=== PATIENT | male | born 1985 | race African-American/Black ===

== ENCOUNTER 2017-08-30 06:06 | Emergency (ER) | payer OTHER ==
[~2017-08-30] VITALS: Ht 188 cm; Wt 99.8 kg
[2017-08-30] VITALS (18 sets, daily range): BP systolic 102–137; BP diastolic 72–89
[~2017-08-30 06:06] MED LIST: CYCLOBENZAPRINE10 MG ORAL; IBUPROFEN600 MG ORAL; NKM
[2017-08-30] MEDS ORDERED: levETIRAcetam 1,000mg/NS100ml 100 ML IVPB ONE (06:15)
[2017-08-30] MEDS ORDERED: LORazepam Inj 2mg/ml 1ml ONE (06:15)
[2017-08-30] MEDS ORDERED: LORazepam Inj 2mg/ml 1ml IM ONE (06:15)
--- NOTE | 2017-08-30 06:23 | Emergency Room Report ---
History of Present Illness General Chief Complaint: Seizure Source: Family Member, EMS Present Illness HPI Is a 32-year-old male with a history of seizure. According to his sisters, for the last year he will get shaking at night and diaphoretic. Was never diagnosed with a seizure. A month ago he had a tonic clonic seizure activity was seen at an ER in [facility]. He was admitted at [facility] after 2 days. Tonight he had a tonic-clonic seizure activity in his sleep. It stopped by time EMS got there. Here he is postictal and combative. He also had a brief tonic clonic seizure activity lasting about 30 seconds. Family said that he has a history of alcohol and drug abuse. According to his sister, he would occasionally binge on alcohol. Last drink was yesterday. Allergies: Coded Allergies: No Known Allergies (Unverified , 08/05/14) Patient History Past Medical History: see triage record, old chart reviewed Past Surgical History: other Pertinent Family History: none Social History: Reports: smoking, alcohol use, drug use Immunizations: other Reviewed Nursing Documentation: PMH: Agreed; PSxH: Agreed Nursing Documentation-PMH Past Medical History: No History, Except For Hx Seizures: Yes Review of Systems Eye: Denies: eye pain, blurred vision ENT: Denies: ear pain, nose congestion, throat swelling Respiratory: Denies: cough, shortness of breath Cardiovascular: Denies: chest pain, palpitations Gastrointestinal: Denies: abdominal pain, diarrhea, nausea, vomiting Musculoskeletal: Denies: back pain, joint pain Skin: Denies: rash Neurological: Denies: headache, numbness Endocrine: Denies: increased thirst, increased urine Hematologic/Lymphatic: Denies: easy bruising All Other Systems: negative except mentioned in HPI Physical Exam Vital Signs Date Time Temp Pulse Resp B/P (MAP) Pulse Ox O2 Delivery O2 Flow Rate FiO2 08/30/17 06:04 101 24 144/74 99 Room Air vitals unremarkable Sp02 EP Interpretation: reviewed, normal General Appearance: well appearing, other - combative Head: normocephalic, atraumatic Eyes: bilateral eye PERRL, bilateral eye EOMI ENT: normal pharynx Neck: full range of motion, supple, no meningismus Respiratory: chest non-tender, lungs clear, normal breath sounds Cardiovascular #1: regular rate, rhythm, no murmur Gastrointestinal: normal bowel sounds, non tender, no mass, no organomegaly, no bruit, non-distended Musculoskeletal: back normal, normal range of motion Neurologic: grossly normal Psychiatric: other - combative Skin: diaphoresis Medical Decision Making Diagnostic Impression: Primary Impression: Epileptic seizure, generalized ER Course Patient presents with a tonic-clonic seizure activity. He probably does have underlying seizure disorder that has not been treated. I gave him Ativan here and started on Keppra. Labs and EKG ordered. He was seen last month and most likely had CT scan done. I see no trauma to warrant another CT scan. I will sign this patient out to Dr. Dean for final disposition. Last Vital Signs Date Time Temp Pulse Resp B/P (MAP) Pulse Ox O2 Delivery O2 Flow Rate FiO2 08/30/17 06:10 101 24 Room Air 08/30/17 06:04 144/74 99 Status: improved DIEUDONNE QUEEN M.D. August 30, 2017 06:22
[2017-08-30 06:32] LABS: APPEARANCE,URINE CLEAR; BILIRUBIN, URINE NEGATIVE (NEGATIVE); COLOR,URINE PALE YELLOW; GLUCOSE, URINE (UA) NEGATIVE (NEGATIVE); KETONES,URINE NEGATIVE (NEGATIVE); LEUKOCYTE ESTERASE ,URINE NEGATIVE (NEGATIVE); NITRITE,URINE NEGATIVE (NEGATIVE); PH,URINE 6 (4.5-8.0); PROTEIN,URINE 2+ (NEGATIVE); UROBILINOGEN,URINE NORMAL MG/DL (0.0-1.0)
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
[2017-08-30] MEDS ORDERED: Midazolam 2mg/2ml Inj ONE (06:34)
[2017-08-30 06:36] LABS: HEMATOCRIT 50.6 % (42.0-52.0); MEAN CORPUSCULAR VOLUME 88 FL (80-99); PLATELET COUNT 375 K/UL (150-450); RED BLOOD COUNT 5.77 M/UL (4.70-6.10); RED CELL DISTRIBUTION WIDTH 13.2 % (11.6-14.8); WHITE BLOOD COUNT 20.8 K/UL (4.8-10.8)
[2017-08-30 06:44] LABS: ANION GAP 29 mmol/L (5-15); BLOOD UREA NITROGEN 10 mg/dL (7-18); CALCIUM 10.6 MG/DL (8.5-10.1); CARBON DIOXIDE 12 MMOL/L (21-32); CHLORIDE 110 MMOL/L (98-107); CREATININE 1.2 MG/DL (0.55-1.30); POTASSIUM 4.4 MMOL/L (3.5-5.1); SODIUM 150 MMOL/L (136-145)
[2017-08-30] MEDS ORDERED: Midazolam 2mg/2ml Inj IM ONE (06:45)
[2017-08-30 06:48] LABS: ALANINE AMINOTRANSFERASE 29 U/L (12-78); ALBUMIN 4.2 G/DL (3.4-5.0); ALBUMIN/GLOBULIN RATIO 0.9 (1.0-2.7); ALKALINE PHOSPHATASE 158 U/L (46-116); ASPARTATE AMINO TRANSFERASE 15 U/L (15-37); BILIRUBIN,TOTAL 0.2 MG/DL (0.2-1.0)
[2017-08-30] MEDS ORDERED: Midazolam 2mg/2ml Inj IVP ONE (07:00)
[2017-08-30] MEDS ORDERED: levETIRAcetam 500mg/NS100ml 100 ML IVPB ONE (07:15)
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
[2017-08-30] MEDS ORDERED: KEPPRA500 MG ORAL (12:07)
--- NOTE | 2017-08-31 15:19 | Cardiology Report ---
APPROVED REPORT EKG Measurement Heart [id number] Sinus tachycardia Nonspecific T wave abnormality Abnormal ECG
== END 2017-08-30 12:20 | disposition home or self-care (01) ==
LOC: EDBD 06:06 → EMR 06:31
DX: Z91.14 Patient's other noncompliance with medication regimen (principal)
CPT/HCPCS: 36415; 71045; 80053; 80307; 80329; 81003; 82962; 85007; 85025; 93005; 96372; 96374; 96375; 99283; J1953; J2250

== ENCOUNTER 2017-09-18 08:08 | Emergency (ER) | payer OTHER ==
[~2017-09-18] VITALS: Ht 177.8 cm; Wt 90.7 kg
[2017-09-18] VITALS (7 sets, daily range): BP systolic 116–127; BP diastolic 66–90
--- NOTE | 2017-09-18 08:02 | Emergency Room Report ---
History of Present Illness General Chief Complaint: Seizure Source: Patient, EMS Present Illness HPI Patient is a approximately 32-year-old male brought in by EMS after reported unwitnessed seizure. The patient was noted to have prior history of seizure disorder and takes unknown medications. The patient had the been noted be markedly agitated and was given 5 mg of IM Versed 2. The patient was noted to have continued agitation and was brought to the hospital for further evaluation and treatment. History is markedly limited by patient's confusion and altered mental status. Allergies: Coded Allergies: No Known Allergies (Unverified , 08/05/14) Patient History Past Medical History: see triage record Reviewed Nursing Documentation: PMH: Agreed; PSxH: Agreed Nursing Documentation-PMH Hx Seizures: Yes Review of Systems All Other Systems: limited - by mental status Physical Exam Vital Signs Date Time Temp Pulse Resp B/P (MAP) Pulse Ox O2 Delivery O2 Flow Rate FiO2 09/18/17 07:57 Room Air Sp02 EP Interpretation: reviewed, normal General Appearance: normal inspection, well appearing, no apparent distress, alert Head: atraumatic ENT: normal ENT inspection, hearing grossly normal, normal voice Neck: normal inspection, full range of motion, supple, no bony tend Respiratory: normal inspection, lungs clear, normal breath sounds, no respiratory distress, no retraction, no wheezing Cardiovascular #1: regular rate, rhythm, no edema Gastrointestinal: normal inspection, normal bowel sounds, non tender, soft, no guarding, no hernia Genitourinary: no CVA tenderness Musculoskeletal: normal inspection, back normal, normal range of motion Neurologic: normal inspection, alert, responsive, speech normal Psychiatric: normal inspection, mood/affect normal, other - psychomotor agitation Skin: normal inspection, normal color, no rash Medical Decision Making Restraint Attestation I, Mitch Alarcon MD, have personally evaluated this patient. Laboratory tests have been reviewed and addressed accordingly. The patient is deemed to present a danger to themselves and/or others. This is based on the exam, history ( provided by patient, EMS/[employer] and/or family) and observed or reported behavior. Attempts for non-invasive measures have been considered and/or attempted, however, have been futile. It is in the best interest of the nursing staff, the patient, and others involved in this patient's care that behavioral restraints be applied. Patient evaluation reveals the following: Market agitation and thrashing with associated confusion Diagnostic Impression: Primary Impression: Epileptic seizure, generalized ER Course Patient presented for seizure. Differential diagnosis included medication noncompliance, substance abuse, alcohol withdrawal, cysticercosis, electrolyte abnormality, mass lesion, or cranial hemorrhage.Patient was given Haldol with improvement in his agitation. The patient was briefly placed in restraints.The patient subsequently released from restraints after agitation improved. The patient was given IV Keppra. CT of head was ordered due to the head trauma from fall. The patient was noted to have improvement in his mental status subsequently. The CT the head read by radiology showed no evidence of acute hemorrhage. The patient is advised to follow-up for outpatient MRI and EEG. The patient is advised to follow up with primary care doctor in 1-2 days. Patient is advised to return if any worsening condition or if any changes in status that are concerning. This report is dictated with [employer] call taker software which may occasionally lead to discrepancies related to use of this software. Labs Test 09/18/17 08:15 09/18/17 08:20 White Blood Count 9.6 K/UL (4.8-10.8) Red Blood Count 5.16 M/UL (4.70-6.10) Hemoglobin 13.7 G/DL (14.2-18.0) Hematocrit 43.2 % (42.0-52.0) Mean Corpuscular Volume 84 FL (80-99) Mean Corpuscular Hemoglobin 26.6 PG (27.0-31.0) Mean Corpuscular Hemoglobin Concent 31.7 G/DL (32.0-36.0) Red Cell Distribution Width 13.5 % (11.6-14.8) Platelet Count 265 K/UL (150-450) Mean Platelet Volume 8.2 FL (6.5-10.1) Neutrophils (%) (Auto) 53.3 % (45.0-75.0) Lymphocytes (%) (Auto) 35.7 % (20.0-45.0) Monocytes (%) (Auto) 9.3 % (1.0-10.0) Eosinophils (%) (Auto) 0.7 % (0.0-3.0) Basophils (%) (Auto) 1.0 % (0.0-2.0) Sodium Level 141 MMOL/L (136-145) Potassium Level 4.2 MMOL/L (3.5-5.1) Chloride Level 107 MMOL/L (98-107) Carbon Dioxide Level 21 MMOL/L (21-32) Anion Gap 13 mmol/L (5-15) Blood Urea Nitrogen 10 mg/dL (7-18) Creatinine 1.1 MG/DL (0.55-1.30) Estimat Glomerular Filtration Rate > 60 mL/min (>60) Glucose Level 117 MG/DL (74-106) Calcium Level 8.6 MG/DL (8.5-10.1) Total Bilirubin 0.3 MG/DL (0.2-1.0) Aspartate Amino Transf (AST/SGOT) 31 U/L (15-37) Alanine Aminotransferase (ALT/SGPT) 40 U/L (12-78) Alkaline Phosphatase 130 U/L (46-116) Total Creatine Kinase 424 U/L (26-308) Total Protein 7.6 G/DL (6.4-8.2) Albumin 3.7 G/DL (3.4-5.0) Globulin 3.9 g/dL Albumin/Globulin Ratio 0.9 (1.0-2.7) Phenytoin (Dilantin) Level < 0.5 ug/mL (10-20) Carbamazepine (Tegretol) Level < 0.5 ug/mL (4.0-12.0) Phenobarbital Level < 1.0 ug/mL (15-40) Urine Color Pale yellow Urine Appearance Slightly cloudy Urine pH 5 (4.5-8.0) Urine Specific [place] 1.025 (1.005-1.035) Urine Protein 3+ (NEGATIVE) Urine Glucose (UA) Negative (NEGATIVE) Urine Ketones 1+ (NEGATIVE) Urine Occult Blood 4+ (NEGATIVE) Urine Nitrite Negative (NEGATIVE) Urine Bilirubin Negative (NEGATIVE) Urine Urobilinogen Normal MG/DL (0.0-1.0) Urine Leukocyte Esterase Negative (NEGATIVE) Urine RBC 5-10 /HPF (0 - 0) Urine WBC 0-2 /HPF (0 - 0) Urine Squamous Epithelial Cells Occasional /LPF Urine Amorphous Sediment Many /LPF (NONE) Urine Bacteria Few /HPF (NONE) Urine Hyaline Casts 0-2 /LPF (NONE) Urine Opiates Screen Negative (NEGATIVE) Urine Barbiturates Screen Negative (NEGATIVE) Phencyclidine (PCP) Screen Negative (NEGATIVE) Urine Amphetamines Screen Negative (NEGATIVE) Urine Benzodiazepines Screen Positive (NEGATIVE) Urine Cocaine Screen Negative (NEGATIVE) Urine Marijuana (THC) Screen Positive (NEGATIVE) EKG Diagnostic Results Rate: normal Rhythm: NSR ST Segments: no acute changes Last Vital Signs Date Time Temp Pulse Resp B/P (MAP) Pulse Ox O2 Delivery O2 Flow Rate FiO2 09/18/17 07:57 Room Air Status: improved Disposition: HOME, SELF-CARE Condition: Stable Scripts Levetiracetam (KEPPRA) 500 Mg Tablet 500 MG ORAL EVERY 12 HOURS, #60 TAB 0 Refills Prov: Mitch Alarcon MD 09/18/17 Mitch Alarcon MD September 18, 2017 08:02
[~2017-09-18 08:08] MED LIST changes: +KEPPRA500 MG ORAL
[2017-09-18] MEDS ORDERED: levETIRAcetam 500 MG in D5W 110 ML IV ONE (08:15)
[2017-09-18] MEDS ORDERED: levETIRAcetam 500mg vial IV ONE (08:19)
[2017-09-18] MEDS ORDERED: DiphenhydrAMINE 50mg/ml Inj ONE (08:22)
[2017-09-18] MEDS ORDERED: Haloperidol 5mg/ml Inj ONE (08:22)
[2017-09-18 08:25] LABS: EOSINOPHILS % (AUTO) 0.7 % (0.0-3.0); HEMATOCRIT 43.2 % (42.0-52.0); HEMOGLOBIN 13.7 G/DL (14.2-18.0); LYMPHOCYTES % (AUTO) 35.7 % (20.0-45.0); MEAN CORPUSCULAR VOLUME 84 FL (80-99); MONOCYTES % (AUTO) 9.3 % (1.0-10.0); NEUTROPHILS % (AUTO) 53.3 % (45.0-75.0); PLATELET COUNT 265 K/UL (150-450); RED BLOOD COUNT 5.16 M/UL (4.70-6.10); RED CELL DISTRIBUTION WIDTH 13.5 % (11.6-14.8); WHITE BLOOD COUNT 9.6 K/UL (4.8-10.8)
[2017-09-18] MEDS ORDERED: Haloperidol 5mg/ml Inj IM ONE (08:30)
[2017-09-18] MEDS ORDERED: DiphenhydrAMINE 50mg/ml Inj IM ONE (08:30)
[2017-09-18 08:37] LABS: ANION GAP 13 mmol/L (5-15); BLOOD UREA NITROGEN 10 mg/dL (7-18); CALCIUM 8.6 MG/DL (8.5-10.1); CARBON DIOXIDE 21 MMOL/L (21-32); CHLORIDE 107 MMOL/L (98-107); CREATININE 1.1 MG/DL (0.55-1.30); POTASSIUM 4.2 MMOL/L (3.5-5.1); SODIUM 141 MMOL/L (136-145)
[2017-09-18 08:41] LABS: ALANINE AMINOTRANSFERASE 40 U/L (12-78); ALBUMIN 3.7 G/DL (3.4-5.0); ALBUMIN/GLOBULIN RATIO 0.9 (1.0-2.7); ALKALINE PHOSPHATASE 130 U/L (46-116); ASPARTATE AMINO TRANSFERASE 31 U/L (15-37); BILIRUBIN,TOTAL 0.3 MG/DL (0.2-1.0); CREATINE KINASE 424 U/L (26-308)
[2017-09-18 08:51] LABS: APPEARANCE,URINE SLIGHTLY CLOUDY; BILIRUBIN, URINE NEGATIVE (NEGATIVE); COLOR,URINE PALE YELLOW; GLUCOSE, URINE (UA) NEGATIVE (NEGATIVE); KETONES,URINE 1+ (NEGATIVE); LEUKOCYTE ESTERASE ,URINE NEGATIVE (NEGATIVE); NITRITE,URINE NEGATIVE (NEGATIVE); PH,URINE 5 (4.5-8.0); PROTEIN,URINE 3+ (NEGATIVE); UROBILINOGEN,URINE NORMAL MG/DL (0.0-1.0)
--- NOTE | 2017-09-18 11:09 | Diagnostic Imaging Report ---
. Indication: Unwitnessed seizure, altered mental status Technique: Continuous helical CT scanning of the head was performed without intravenous contrast material. Axial and coronal 5 mm sections were generated. Radiation dose was minimized using automated exposure control Dose: Total Dose Length Product - DLP 1396.[address] Dose Index - CTDIvol(s) 70.38 mGy. Comparison: none Findings: The ventricular system is normal in size and configuration. There is no shift of midline structures. No abnormal extra-axial fluid collections are noted. There is no evidence of intracerebral bleeding. No other abnormal high or low density areas are noted within the brain. Normal price-white differentiation. Intact calvarium. Visualized orbits and sinuses are unremarkable. Impression: Normal CT scan of the head without contrast material. Consider contrast MRI for more sensitive workup of seizure disorder if this has not been performed previously The CT scanner at [facility] is accredited by the [employer] and the scans are performed using protocols designed to limit radiation exposure to as low as reasonably achievable to attain images of sufficient resolution adequate for diagnostic evaluation.
[2017-09-18] MEDS ORDERED: KEPPRA500 M4 ORAL (12:57)
--- NOTE | 2017-09-18 17:31 | Diagnostic Imaging Report ---
Indication: Neck pain Technique: 2 views of the neck with soft tissue technique Comparison: Findings: There is straightening of the normal cervical lordosis. No prevertebral soft tissue swelling. Patient is slightly rotated to the left. No hypopharyngeal distention, epiglottic enlargement, or glottic narrowing demonstrated. No radiopaque foreign body demonstrated. The adenoids are mildly prominent. Impression: No definite acute process. No findings to suggest etiology of stated clinical history of neck pain
--- NOTE | 2017-09-19 16:55 | Cardiology Report ---
APPROVED REPORT EKG Measurement Heart [id number] abnormality Abnormal ECG
== END 2017-09-18 14:45 | disposition home or self-care (01) ==
LOC: EDBD 08:08 → EMR 08:19
DX: G40.409 Other generalized epilepsy and epileptic syndromes, not intractable, without status epilepticus (principal)
CPT/HCPCS: 36415; 70360; 70450; 80053; 80156; 80184; 80185; 80307; 81003; 82550; 85025; 93005; 96361; 96372; 96374; 99285; J1200; J1630; J1953

== ENCOUNTER 2017-10-11 03:45 | Emergency (ER) | payer OTHER ==
[~2017-10-11] VITALS: Ht 177.8 cm; Wt 86.2 kg
[~2017-10-11 03:45] MED LIST changes: +KEPPRA500 M4 ORAL
[2017-10-11] MEDS ORDERED: LORazepam Inj 2mg/ml 1ml ONE (03:51)
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
[2017-10-11] MEDS ORDERED: levETIRAcetam 1,000mg/NS100ml 100 ML IVPB ONE (04:00)
[2017-10-11] MEDS ORDERED: LORazepam Inj 2mg/ml 1ml IV ONE (04:00)
[2017-10-11 04:05] VITALS: BP 120/62
[2017-10-11 04:23] VITALS: BP 108/61
[2017-10-11 04:31] LABS: BASOPHILS % (AUTO) 1.2 % (0.0-2.0); EOSINOPHILS % (AUTO) 0.9 % (0.0-3.0); HEMATOCRIT 45.1 % (42.0-52.0); HEMOGLOBIN 13.8 G/DL (14.2-18.0); LYMPHOCYTES % (AUTO) 50.8 % (20.0-45.0); MEAN CORPUSCULAR VOLUME 86 FL (80-99); NEUTROPHILS % (AUTO) 39.1 % (45.0-75.0); PLATELET COUNT 325 K/UL (150-450); RED BLOOD COUNT 5.25 M/UL (4.70-6.10); WHITE BLOOD COUNT 15.8 K/UL (4.8-10.8)
[2017-10-11 04:38] VITALS: BP 93/54
[2017-10-11 04:40] LABS: ANION GAP 27 mmol/L (5-15); BLOOD UREA NITROGEN 11 mg/dL (7-18); CALCIUM 9.1 MG/DL (8.5-10.1); CARBON DIOXIDE 12 MMOL/L (21-32); CHLORIDE 103 MMOL/L (98-107); CREATININE 1.5 MG/DL (0.55-1.30); POTASSIUM 3.5 MMOL/L (3.5-5.1); SODIUM 142 MMOL/L (136-145)
[2017-10-11] MEDS ORDERED: KEPPRA500 M4 ORAL (04:49)
[2017-10-11 04:53] VITALS: BP 112/65
[2017-10-11 06:42] VITALS: BP 114/71
[2017-10-11 06:43] VITALS: BP 114/71
== END 2017-10-11 06:44 | disposition home or self-care (01) ==
LOC: EDBD 03:45 → EMR 04:04
DX: G40.909 Epilepsy, unspecified, not intractable, without status epilepticus (principal); Z91.14 Patient's other noncompliance with medication regimen
CPT/HCPCS: 36415; 80048; 85025; 96365; 96374; 96375; 99284; J1953

== ENCOUNTER 2017-11-05 15:37 | Emergency (ER) | payer OTHER ==
[~2017-11-05] VITALS: Ht 188 cm; Wt 95.3 kg
[2017-11-05 15:39] VITALS: BP 121/65
[2017-11-05] MEDS ORDERED: LORazepam Inj 2mg/ml 1ml IM ONE (15:45)
--- NOTE | 2017-11-05 15:48 | Emergency Room Report ---
History of Present Illness General Chief Complaint: Seizure Source: Patient, EMS Present Illness HPI Pt presents after seizure at home. EMS called and transported pt in post-ictal state. Upon arrival, pt awake and states compliance with meds but can't remember the name. No IV established by EMS, they also were not able to get name of meds. Pt denies complaint. Allergies: Coded Allergies: No Known Allergies (Unverified , 08/05/14) Patient History Past Medical History: old chart reviewed, seizures Past Surgical History: unable to obtain Pertinent Family History: unable to obtain Nursing Documentation-PMH Hx Seizures: Yes Review of Systems Constitutional: Denies: no symptoms, see HPI, chills, sweats, fever, malaise, weakness, other Eye: Denies: no symptoms, see HPI, eye pain, blurred vision, tearing, double vision, nose pain, nose congestion, acuity changes, discharge, other Respiratory: Denies: no symptoms, see HPI, cough, orthopnea, shortness of breath, stridor, wheezing, ZAPATA, sputum, other Cardiovascular: Denies: no symptoms, see HPI, chest pain, edema, palpitations, syncope, PND, other Gastrointestinal: Denies: no symptoms, see HPI, abdominal pain, constipation, diarrhea, nausea, vomiting, melena, hematemesis, other Musculoskeletal: Denies: no symptoms, see HPI, back pain, gout, joint pain, joint swelling, muscle pain, muscle stiffness, other Skin: Denies: no symptoms, see HPI, rash, change in color, change in hair/nails , dryness, lesions, other Neurological: Reports: seizure; Denies: no symptoms, see HPI, headache, numbness, paresthesia, tingling, tremors, focal weakness, syncope, dizziness, other Allergic: Denies: no symptoms, see HPI, urticaria, hay fever, other Physical Exam Vital Signs Date Time Temp Pulse Resp B/P (MAP) Pulse Ox O2 Delivery O2 Flow Rate FiO2 11/05/17 15:29 98.5 96 18 117/65 98 Room Air 98.4 Sp02 EP Interpretation: reviewed, normal General Appearance: no apparent distress, alert, GCS 15, non-toxic Head: normocephalic, atraumatic Eyes: bilateral eye normal inspection, bilateral eye PERRL ENT: hearing grossly normal, normal pharynx, no angioedema, normal voice, other - no tongue laceration but some dried blood around mouth Neck: full range of motion, supple/symm/no masses Respiratory: chest non-tender, lungs clear, normal breath sounds, speaking full sentences Cardiovascular #1: regular rate, rhythm, no edema Cardiovascular #2: 2+ carotid (R), 2+ carotid (L), 2+ radial (R), 2+ radial (L) , 2+ dorsalis pedis (R), 2+ dorsalis pedis (L) Gastrointestinal: normal bowel sounds, non tender, soft, non-distended, no guarding, no rebound Rectal: deferred Genitourinary: normal inspection, no CVA tenderness Musculoskeletal: back normal, gait/station normal, normal range of motion, non- tender, calf tenderness Neurologic: alert, oriented x3, responsive, motor strength/tone normal, sensory intact, speech normal Psychiatric: judgement/insight normal, memory normal, mood/affect normal, no suicidal/homicidal ideation Reflexes: 3+ bicep (R), 3+ bicep (L), 3+ tricep (R), 3+ tricep (L), 3+ knee (R) , 3+ knee (L) Skin: normal color, no rash, warm/dry, well hydrated Lymphatic: no adenopathy Medical Decision Making Diagnostic Impression: Primary Impression: Seizure disorder ER Course Pt seen and evaluated in EMS [facility]. immediately upon transfer to bed , pt began seizing again. Reviewed old records - pt was seen 1 month ago and discharged with Keppra. At that time, pt was non-compliant with meds. Given that , I've ordered 1000mg IV Keppra load and 1 mg Ativan for active seizure. Pt stopped seizure approx. 1 minute after it began - tonic/clonic activity. Pt now post-ictal Last Vital Signs Date Time Temp Pulse Resp B/P (MAP) Pulse Ox O2 Delivery O2 Flow Rate FiO2 11/05/17 15:29 98.5 96 18 117/65 98 Room Air 98.4 Disposition: HOME, SELF-CARE Condition: Stable Scripts Levetiracetam (KEPPRA) 500 Mg Tablet 500 MG ORAL EVERY 12 HOURS, #60 TAB 0 Refills Prov: JOSE KOO 11/05/17 JOSE KOO Nov 05, 2017 15:48
[2017-11-05 17:07] VITALS: BP 145/84
[2017-11-05] MEDS ORDERED: levETIRAcetam 1,000mg/NS100ml 100 ML IVPB ONE (18:45)
[2017-11-05] MEDS ORDERED: KEPPRA500 M4 ORAL (19:25)
[2017-11-05 19:36] VITALS: BP 145/84
--- NOTE | 2017-11-06 14:10 | Cardiology Report ---
APPROVED REPORT EKG Measurement Heart [id number] Sinus tachycardia Prolonged QT Abnormal ECG
== END 2017-11-05 19:40 | disposition home or self-care (01) ==
LOC: EDBD 15:37 → EMR 15:50
DX: G40.909 Epilepsy, unspecified, not intractable, without status epilepticus (principal)
CPT/HCPCS: 93005; 99283; J1953

== ENCOUNTER 2017-11-20 13:04 | Emergency (ER) | payer OTHER ==
[~2017-11-20] VITALS: Ht 185.4 cm; Wt 98.0 kg
[2017-11-20] MEDS ORDERED: Tetanus/Diptheria/Pertussis Vaccine 0.5ml Syr IM ONE (13:45)
[2017-11-20] MEDS ORDERED: IBUPROFEN800 MG ORAL (13:51)
[2017-11-20] MEDS ORDERED: BENADRYL25 MG ORAL (13:51)
[2017-11-20] MEDS ORDERED: CEPHALEXIN500 MG ORAL (13:51)
[2017-11-20] MEDS ORDERED: BACTRIM DS TAB1 EAC1 ORAL (13:51)
--- NOTE | 2017-11-20 13:52 | Emergency Room Report ---
History of Present Illness General Chief Complaint: Skin Rash/Abscess Source: Patient Present Illness HPI 32-year-old male patient presents ER complaining of spider bite for the past 2 days. Reports pain and swelling of his left forearm. Reports increased redness and itchiness during this time. Reports does not know tetanus vaccination status. Reports does not know what type of spider or bug bit him. Denies fever, chest pain, shortness of breath, vomiting, abdominal pain. Denies other acute symptoms. Denies history of diabetes. also complains of bites on right posterior forearm and left anterior christiansen. Reports he has scratched at those and they "popped". Allergies: Coded Allergies: No Known Allergies (Unverified , 08/05/14) Patient History Past Medical History: see triage record Reviewed Nursing Documentation: PMH: Agreed; PSxH: Agreed Nursing Documentation-PMH Hx Seizures: Yes Review of Systems All Other Systems: negative except mentioned in HPI Physical Exam Vital Signs Date Time Temp Pulse Resp B/P (MAP) Pulse Ox O2 Delivery O2 Flow Rate FiO2 11/20/17 13:16 97.8 87 18 142/90 96 Room Air 97.9 Sp02 EP Interpretation: reviewed, normal General Appearance: well appearing, no apparent distress, alert, GCS 15, non- toxic Head: normocephalic, atraumatic ENT: hearing grossly normal, normal pharynx, no angioedema, normal voice, uvula midline, moist mucus membranes Neck: full range of motion Respiratory: lungs clear, normal breath sounds, no rhonchi, no respiratory distress, no accessory muscle use, no wheezing, speaking full sentences Cardiovascular #1: regular rate, rhythm, no edema Musculoskeletal: back normal, digits/nails normal, gait/station normal, normal range of motion, non-tender Neurologic: alert, oriented x3, responsive, motor strength/tone normal, sensory intact Skin: other - posterior medial left forearm erythema and edema extending from proximal elbow to wrist, non circumferential, warmth to touch, TTP, no central clearing, no bite arnett, no target sign, no open wound, no induration or fluctuance, does not come to a point, no draining; 1cm erythematous bump on posterior right forearm, no warmth to palpation, no induration or fluctuance, does not come to a point, no draining, abrasions - left anterior christiansen: 1cm abrasion, no active bleeding, no surrounding erythema or edema Medical Decision Making PA Attestation Dr. Franco is my supervising Physician whom patient management has been discussed with. Diagnostic Impression: Primary Impression: Cellulitis ER Course Pt. presents to the ED c/o cellulitis.. Ddx considered but are not limited to rash, cellulitis, abscess, atopic dermatitis, angioedema., allergic reaction, DVT. Vital signs: are WNL, pt. is afebrile ER COURSE: provided with pain medication. Right forearm: erythema and edema consistent with cellulitis, no palpable mass, suspicion for abscess, does not require I and D at this time. no bite arnett visualized. Will provide patient with outpatient abx treatment. non-circumferential, no history of diabetes, does not require admission for IV antibiotics at this time. Tetanus vaccination status unknown, we will provide patient with tdap to ER. Smaller erythematous bump located on right forearm, likely secondary to insect bite. Abrasion on left anterior christiansen, instructed patient did not take her scratch. Apply cool compresses to affected area. Apply Neosporin and bacitracin to the affected area to help reduce appearance of scar. Wound recheck in 2 days. Follow-up at ER or with primary care provider. ER precautions given, return to ER immediately for new or worsening of symptoms including but not limited to chest pain, shortness of breath, intractable vomiting, spreading of cellulitis past current boundaries,past joints, red streaking. DISCHARGE: -Rx provided for Keflex -Rx provided for Bactrim -RX provided for Benadryl for itching. SE drowsiness, do not take prior to drinking, driving, operating heavy machinery. Rx provided for Ibuprofen for pain symptoms At this time pt. is stable for d/c to home. Patient resting comfortably in no acute distress, nontoxic appearing. Will provide printed patient care instructions, and any necessary prescriptions. Patient instructed to complete current course of antibiotics. Care plan and follow up instructions have been discussed with the patient prior to discharge. Patient instructed to follow-up with primary care provider in 2-3 days and discuss further referral to roper operator and vascular physician. Patient questions asked and answered. ER precautions given. Patient instructed to return to ER immediately for any new or worsening of symptoms including but not limited to increasing SOB, persistent fever, intractable vomiting, red streaking. - Please note that this Emergency Department Report was dictated using [employer] care provider technology software, occasionally this can lead to erroneous entry secondary to interpretation by the dictation equipment. Last Vital Signs Date Time Temp Pulse Resp B/P (MAP) Pulse Ox O2 Delivery O2 Flow Rate FiO2 11/20/17 13:16 97.8 87 18 142/90 96 Room Air 97.9 Disposition: HOME, SELF-CARE Condition: Stable Scripts Ibuprofen* (MOTRIN*) 800 Mg Tablet 800 MG ORAL Q8H, #30 TAB 0 Refills Prov: Jairon Haddad 11/20/17 Diphenhydramine Hcl* (BENADRYL*) 25 Mg Capsule 25 MG ORAL BID PRN for Itching, #30 CAP Prov: Jairon Haddad 11/20/17 Trimethoprim/Sulfamethoxazole 160/800* (BACTRIM DS TABLET*) 1 Each Tablet 1 TAB ORAL DAILY for 7 Days, #14 TAB Prov: Jairon Haddad 11/20/17 Cephalexin* (KEFLEX*) 500 Mg Capsule 500 MG ORAL EVERY 12 HOURS, #14 CAP 0 Refills Prov: Jairon Haddad 11/20/17 Patient Instructions: Cellulitis, [id number] Additional Instructions: Followup with primary care provider in 2-3 days. Do not scratch or itch. Apply cool compresses to affected area. Take medications as directed. SE drowsiness, do not take prior to drinking, driving, operating heavy machinery. Patient questions asked and answered. ER precautions given, patient instructed to return to ER immediately for any new or worsening of symptoms including but not limited to intractable vomiting, fever, chest pain, tongue swelling, red streaking, spreading of skin infection. Jairon Haddad Nov 20, 2017 13:52
[2017-11-20 14:03] VITALS: BP 118/74
[2017-11-20 14:04] VITALS: BP 118/74
== END 2017-11-20 14:04 | disposition home or self-care (01) ==
LOC: EMR 13:51
DX: L03.113 Cellulitis of right upper limb (principal); Z23 Encounter for immunization
CPT/HCPCS: 90471; 90715; 99284

== ENCOUNTER 2018-03-19 03:23 | Emergency (ER) | payer OTHER ==
[~2018-03-19] VITALS: Ht 188 cm; Wt 99.8 kg
[~2018-03-19 03:23] MED LIST changes: +BACTRIM DS TAB1 EAC1 ORAL; +BENADRYL25 MG ORAL; +CEPHALEXIN500 MG ORAL; +IBUPROFEN800 MG ORAL
[2018-03-19] MEDS ORDERED: levETIRAcetam 1,000mg/NS100ml 100 ML IVPB ONE (03:30)
[2018-03-19] MEDS ORDERED: KEPPRA500 M4 ORAL (03:33)
--- NOTE | 2018-03-19 03:33 | Emergency Room Report ---
History of Present Illness General Chief Complaint: Seizure Source: Medical Record, EMS Present Illness HPI Is a 33-year-old male with a history of seizure. He is noncompliant with medication. Per EMS had to be called out on him prickly every week. He's been here numerous times. Usually come in with postictal state with combative after tonic clonic seizure. Family called 911. They're heard noises and found him postictal and combative. They called 911. Similar presentation in the past. He does have trauma to his oral cavity. Allergies: Coded Allergies: No Known Allergies (Unverified , 08/05/14) UNABLE TO ASSESS (Unverified , 03/19/18) Patient History Past Medical History: see triage record, old chart reviewed, seizures Past Surgical History: other Pertinent Family History: none Social History: Reports: drug use - Marijuana Immunizations: other Reviewed Nursing Documentation: PMH: Agreed; PSxH: Agreed Nursing Documentation-PMH Past Medical History: No History, Except For Hx Seizures: Yes Review of Systems Eye: Denies: eye pain, blurred vision ENT: Denies: ear pain, nose congestion, throat swelling Respiratory: Denies: cough, shortness of breath Cardiovascular: Denies: chest pain, palpitations Gastrointestinal: Denies: abdominal pain, diarrhea, nausea, vomiting Musculoskeletal: Denies: back pain, joint pain Skin: Denies: rash Neurological: Denies: headache, numbness Endocrine: Denies: increased thirst, increased urine Hematologic/Lymphatic: Denies: easy bruising All Other Systems: negative except mentioned in HPI Physical Exam Vital Signs Date Time Temp Pulse Resp B/P (MAP) Pulse Ox O2 Delivery O2 Flow Rate FiO2 03/19/18 03:21 98.6 87 16 127/63 99 Room Air vitals normal Sp02 EP Interpretation: reviewed, normal General Appearance: well appearing, no apparent distress, Postictal Head: normocephalic, atraumatic Eyes: bilateral eye PERRL, bilateral eye EOMI ENT: hearing grossly normal, normal pharynx, other - Abrasion to lip Neck: full range of motion, supple, no meningismus Respiratory: chest non-tender, lungs clear, normal breath sounds Cardiovascular #1: regular rate, rhythm, no murmur Gastrointestinal: normal bowel sounds, non tender, no mass, no organomegaly, no bruit, non-distended Musculoskeletal: back normal, normal range of motion Neurologic: alert, oriented x3 Psychiatric: mood/affect normal Skin: warm/dry Medical Decision Making Diagnostic Impression: Primary Impression: Epileptic seizure, generalized ER Course Patient with seizure activity secondary to noncompliant with his medication. I gave him a dose of Keppra here. He is not driving so I see no need for DMV report. We'll observe patient until he is more awake. We will discharge home afterward. Last Vital Signs Date Time Temp Pulse Resp B/P (MAP) Pulse Ox O2 Delivery O2 Flow Rate FiO2 03/19/18 03:21 98.6 87 16 127/63 99 Room Air Status: improved Disposition: HOME, SELF-CARE Condition: Stable Scripts Levetiracetam (KEPPRA) 500 Mg Tablet 500 MG ORAL EVERY 12 HOURS, #60 TAB 0 Refills Prov: Mal Murray MD 03/19/18 Patient Instructions: Seizure, Adult Additional Instructions: Take your seizure medication. Follow-up with your doctor in [address] Return if symptom worsen. Mal Murray MD Mar 19, 2018 03:33
[2018-03-19 05:39] VITALS: BP 127/63
[2018-03-19 06:51] VITALS: BP 115/68
== END 2018-03-19 06:50 | disposition home or self-care (01) ==
LOC: EDBD 03:23 → EMR 03:37
DX: G40.409 Other generalized epilepsy and epileptic syndromes, not intractable, without status epilepticus (principal); Z91.14 Patient's other noncompliance with medication regimen
CPT/HCPCS: 96374; 99283; J1953

== ENCOUNTER 2018-05-16 05:54 | Emergency (ER) | payer OTHER ==
[~2018-05-16] VITALS: Ht 182.9 cm; Wt 95.3 kg
[2018-05-16] MEDS ORDERED: LORazepam Inj 2mg/ml 1ml ONE (05:59)
[2018-05-16] MEDS ORDERED: levETIRAcetam 1,000mg/NS100ml 100 ML IVPB ONE (06:00)
[2018-05-16] MEDS ORDERED: LORazepam Inj 2mg/ml 1ml IV ONE ×2 (06:00)
[2018-05-16 06:17] VITALS: BP 131/86
--- NOTE | 2018-05-16 06:17 | NUR ---
ED Nurse Note: Pt was brought in ED by Ambulance from Home. c/o Seizure episode. Pt is awake, restlessness, unable to to answer questions at this time. Dr. Alarcon at bed side, waiting for orders.
[2018-05-16 06:21] LABS: BASOPHILS % (AUTO) 1.6 % (0.0-2.0); EOSINOPHILS % (AUTO) 1.6 % (0.0-3.0); HEMATOCRIT 51.8 % (42.0-52.0); HEMOGLOBIN 15.7 G/DL (14.2-18.0); MEAN CORPUSCULAR VOLUME 88 FL (80-99); MONOCYTES % (AUTO) 12.5 % (1.0-10.0); NEUTROPHILS % (AUTO) 34.3 % (45.0-75.0); PLATELET COUNT 308 K/UL (150-450); WHITE BLOOD COUNT 14.5 K/UL (4.8-10.8)
[2018-05-16 06:39] LABS: ALANINE AMINOTRANSFERASE 80 U/L (12-78); ALBUMIN 4.3 G/DL (3.4-5.0); ALKALINE PHOSPHATASE 156 U/L (46-116); ANION GAP 29 mmol/L (5-15); ASPARTATE AMINO TRANSFERASE 73 U/L (15-37); BILIRUBIN,TOTAL 0.2 MG/DL (0.2-1.0); BLOOD UREA NITROGEN 13 mg/dL (7-18); CALCIUM 10.8 MG/DL (8.5-10.1); CHLORIDE 109 MMOL/L (98-107); CREATININE 1.3 MG/DL (0.55-1.30); POTASSIUM 4.7 MMOL/L (3.5-5.1); SODIUM 147 MMOL/L (136-145)
[2018-05-16 06:44] LABS: CARBON DIOXIDE 9 MMOL/L (21-32)
[2018-05-16 07:07] VITALS: BP 132/76
--- NOTE | 2018-05-16 07:10 | NUR ---
HAND-OFF: Report given to Trish/RN for continue care.
--- NOTE | 2018-05-16 08:01 | Emergency Room Report ---
History of Present Illness General Chief Complaint: Seizure Source: Patient, EMS Present Illness HPI Patient is a 33-year-old male brought in by EMS after witnessed seizure. Patient had prior history of seizure disorder. He had reportedly been previously prescribed Keppra. Patient had prior history of noncompliance with medications. History is markedly limited by patient's mental status. Patient was brought in by EMS. He was noted to have a seizure immediately after arriving at the hospital. Patient had been more alert prior to second seizure. Allergies: Coded Allergies: No Known Allergies (Unverified , 08/05/14) UNABLE TO ASSESS (Unverified , 03/19/18) Patient History Past Medical History: see triage record Reviewed Nursing Documentation: PMH: Agreed; PSxH: Agreed Nursing Documentation-PMH Hx Seizures: Yes - seizures/ epil Review of Systems All Other Systems: limited - by mental status Physical Exam Vital Signs Date Time Temp Pulse Resp B/P (MAP) Pulse Ox O2 Delivery O2 Flow Rate FiO2 05/16/18 05:49 98.1 105 15 131/86 99 Room Air 05/16/18 06:17 10.0 Sp02 EP Interpretation: reviewed, normal General Appearance: normal inspection, well appearing, no apparent distress, alert Head: atraumatic ENT: normal ENT inspection, hearing grossly normal, normal voice Neck: normal inspection, full range of motion, supple, no bony tend Respiratory: normal inspection, lungs clear, normal breath sounds, no respiratory distress, no retraction, no wheezing Cardiovascular #1: no edema, tachycardia Gastrointestinal: normal inspection, normal bowel sounds, non tender, soft, no guarding, no hernia Genitourinary: no CVA tenderness Musculoskeletal: normal inspection, back normal, normal range of motion Neurologic: normal inspection, alert, responsive, 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 Differential diagnosis includes is not limited to alcohol withdrawal, medication noncompliance, substance abuse, breakthrough seizure among others. Because of complexity of patient's case laboratory testing and imaging studies were ordered. Patient was noted to have witnessed seizure. Patient was subsequently given IV Ativan. He was noted to be somewhat somnolent.patient was started on IV fluids. Dr. Cannon was contacted for transfer to [facility]. Labs Test 05/16/18 06:00 White Blood Count 14.5 K/UL (4.8-10.8) Red Blood Count 5.90 M/UL (4.70-6.10) Hemoglobin 15.7 G/DL (14.2-18.0) Hematocrit 51.8 % (42.0-52.0) Mean Corpuscular Volume 88 FL (80-99) Mean Corpuscular Hemoglobin 26.6 PG (27.0-31.0) Mean Corpuscular Hemoglobin Concent 30.3 G/DL (32.0-36.0) Red Cell Distribution Width 15.0 % (11.6-14.8) Platelet Count 308 K/UL (150-450) Mean Platelet Volume 7.3 FL (6.5-10.1) Neutrophils (%) (Auto) 34.3 % (45.0-75.0) Lymphocytes (%) (Auto) 50.0 % (20.0-45.0) Monocytes (%) (Auto) 12.5 % (1.0-10.0) Eosinophils (%) (Auto) 1.6 % (0.0-3.0) Basophils (%) (Auto) 1.6 % (0.0-2.0) Sodium Level 147 MMOL/L (136-145) Potassium Level 4.7 MMOL/L (3.5-5.1) Chloride Level 109 MMOL/L (98-107) Carbon Dioxide Level 9 MMOL/L (21-32) Anion Gap 29 mmol/L (5-15) Blood Urea Nitrogen 13 mg/dL (7-18) Creatinine 1.3 MG/DL (0.55-1.30) Estimat Glomerular Filtration Rate > 60 mL/min (>60) Glucose Level 136 MG/DL (74-106) Calcium Level 10.8 MG/DL (8.5-10.1) Total Bilirubin 0.2 MG/DL (0.2-1.0) Aspartate Amino Transf (AST/SGOT) 73 U/L (15-37) Alanine Aminotransferase (ALT/SGPT) 80 U/L (12-78) Alkaline Phosphatase 156 U/L (46-116) Total Protein 8.8 G/DL (6.4-8.2) Albumin 4.3 G/DL (3.4-5.0) Globulin 4.5 g/dL Albumin/Globulin Ratio 1.0 (1.0-2.7) Last Vital Signs Date Time Temp Pulse Resp B/P (MAP) Pulse Ox O2 Delivery O2 Flow Rate FiO2 05/16/18 07:07 98.1 104 15 132/76 99 Simple Mask 10.0 Status: improved Disposition: XFER SHT-TRM HOSP Condition: Serious Referrals: [facility],REFERRING (PCP) Mitch Alarcon MD May 16, 2018 08:01
[2018-05-16 09:15] VITALS: BP 118/77
--- NOTE | 2018-05-16 09:17 | NUR ---
ED Nurse Note:pt. still sleeping, no signs of distress noted waiting for transfer to [facility]
--- NOTE | 2018-05-16 10:57 | NUR ---
ED Nurse Note:tried to call report to [facility]- nobody answering
[2018-05-16 11:15] VITALS: BP 110/73
--- NOTE | 2018-05-16 11:15 | NUR ---
ED Nurse Note:called report to Jose superviser at [facility]
[2018-05-16 13:35] VITALS: BP 111/69
[2018-05-16 13:39] VITALS: BP 111/69
--- NOTE | 2018-05-16 13:41 | NUR ---
ED Nurse Note:pt. was picked up by transport for transfer to other hospital ,pt's condition stable, report given
== END 2018-05-16 13:42 | disposition short-term general hospital (02) ==
LOC: EDBD 05:54 → EMR 06:43
DX: G40.909 Epilepsy, unspecified, not intractable, without status epilepticus (principal); E87.2 Acidosis; E86.0 Dehydration
CPT/HCPCS: 36415; 80053; 85025; 96374; 96375; 99284; J1953

== ENCOUNTER 2018-06-21 08:02 | Emergency (ER) | payer OTHER ==
[~2018-06-21] VITALS: Ht 188 cm; Wt 86.2 kg
[2018-06-21] MEDS ORDERED: levETIRAcetam 500 MG in D5W 110 ML IV ONE (08:15)
--- NOTE | 2018-06-21 08:17 | Emergency Room Report ---
History of Present Illness General Chief Complaint: Seizure Source: Patient, EMS Present Illness HPI 33-year-old male with history of seizure disorder on Keppra, as well as a history of diabetes and alcohol abuse according to EMS, brought in for witnessed seizure at home. Patient was combative at the scene in his postictal state, so was given 5 mg IM Versed prior to arrival by EMS. Patient currently is very drowsy but easily arousable to verbal and tactile stimulus. He is seen moving all extremities and breathing spontaneously at a normal rate, but unable to give any history. Allergies: Coded Allergies: No Known Allergies (Unverified , 08/05/14) UNABLE TO ASSESS (Unverified , 03/19/18) Patient History Past Medical History: see triage record, seizures Reviewed Nursing Documentation: PMH: Agreed; PSxH: Agreed Nursing Documentation-PMH Hx Diabetes: Yes Hx Seizures: Yes Review of Systems All Other Systems: limited - 2/2 versed sedation vs. post-ictal state vs. combination of the 2 previous factors Physical Exam Vital Signs Date Time Temp Pulse Resp B/P (MAP) Pulse Ox O2 Delivery O2 Flow Rate FiO2 06/21/18 07:57 99.9 78 18 156/100 98 Room Air Sp02 EP Interpretation: reviewed, normal General Appearance: normal inspection, no apparent distress, non-toxic, other - drowsy but easily arousable to verbal and tactile stimulus, but quickly falls asleep within seconds Head: normocephalic, atraumatic Eyes: bilateral eye normal inspection, bilateral eye PERRL, bilateral eye EOMI ENT: normal ENT inspection, hearing grossly normal, normal pharynx, no angioedema, normal voice, moist mucus membranes Neck: normal inspection, full range of motion, supple, no bony tend - no tenderness, no stepoffs, no deformities, seen moving neck spontaneously with no rigidity or limitation in ROM, supple/symm/no masses Respiratory: chest non-tender, lungs clear, normal breath sounds, no rhonchi, no respiratory distress, no retraction, no wheezing, chest symmetrical, palpation of chest normal Cardiovascular #1: normal peripheral pulses, regular rate, rhythm, no edema, no gallop, no JVD, no murmur, no rub Cardiovascular #2: 2+ radial (R), 2+ radial (L) Gastrointestinal: normal inspection, non tender, soft, no mass, no guarding, no rebound Rectal: deferred Genitourinary: normal inspection, no CVA tenderness Musculoskeletal: back normal, gait/station normal, normal range of motion, non- tender, no calf tenderness Neurologic: responsive, 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 After waking, I reevaluated patient at 9:50 AM, and he reports his last seizure was a few weeks ago, and reports that he missed his Keppra dose yesterday, he recently was increased from Keppra 500 twice a day had Keppra 750 twice a day by his neurologist, and reports he doesn't like the way that the 750 does makes him feel. I reported to him that he should try it for the next few weeks to 2 months or so at least and I think he'll get used to it. If not, then he should report his neurologist and see if there are alternative regimens. He seemed to understand and agree that it is not good for his health to have seizures, and so he agreed to try to be more compliant with the new dosing. He reports he has prescriptions at home, and does not need any from us. He denies biting his tongue, and he reports he feels well now that he has slept it off. 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 Patient's labs, urinalysis, unremarkable, he is slightly hypertensive, he has a low-grade temp of 99.9, but has no infectious symptomatology, and I will discharge him at this time. EKG Diagnostic Results EKG Time: 08:30 EP Interpretation: 85 Rate: normal Rhythm: NSR ST Segments: no acute changes ASA given to the pt in ED: No Rhythm Strip Diag. Results Rhythm Strip Time: 08:15 EP Interpretation: yes Rate: 89 Rhythm: NSR, no PVC's, no ectopy Last Vital Signs Date Time Temp Pulse Resp B/P (MAP) Pulse Ox O2 Delivery O2 Flow Rate FiO2 06/21/18 07:57 99.9 78 18 156/100 98 Room Air Disposition: HOME, SELF-CARE Condition: Stable GEORGE BRICE M.D Jun 21, 2018 08:17
--- NOTE | 2018-06-21 08:37 | NUR ---
ED Nurse Note: Pt. was brought in by [facility] from home due to tonic-clonic seizure, post ictal. Pt. received 5mg of versed en route to ER. Pt. came in a little bit restless. Pt. is now calm and cooperative. AAOX4.
[2018-06-21 08:42] LABS: BASOPHILS % (AUTO) 1.2 % (0.0-2.0); EOSINOPHILS % (AUTO) 1.2 % (0.0-3.0); HEMATOCRIT 43.5 % (42.0-52.0); HEMOGLOBIN 13.7 G/DL (14.2-18.0); LYMPHOCYTES % (AUTO) 33.5 % (20.0-45.0); MEAN CORPUSCULAR VOLUME 84 FL (80-99); MONOCYTES % (AUTO) 8.7 % (1.0-10.0); NEUTROPHILS % (AUTO) 55.5 % (45.0-75.0); PLATELET COUNT 238 K/UL (150-450); RED BLOOD COUNT 5.18 M/UL (4.70-6.10); RED CELL DISTRIBUTION WIDTH 14.5 % (11.6-14.8); WHITE BLOOD COUNT 6.9 K/UL (4.8-10.8)
[2018-06-21 08:59] VITALS: BP 156/100
[2018-06-21 09:05] LABS: ANION GAP 16 mmol/L (5-15); BLOOD UREA NITROGEN 5 mg/dL (7-18); CALCIUM 9.6 MG/DL (8.5-10.1); CARBON DIOXIDE 18 MMOL/L (21-32); CHLORIDE 106 MMOL/L (98-107); CREATININE 1.2 MG/DL (0.55-1.30); POTASSIUM 4.5 MMOL/L (3.5-5.1); SODIUM 140 MMOL/L (136-145)
[2018-06-21 09:08] LABS: ALANINE AMINOTRANSFERASE 20 U/L (12-78); ALBUMIN 3.5 G/DL (3.4-5.0); ALBUMIN/GLOBULIN RATIO 0.9 (1.0-2.7); ALKALINE PHOSPHATASE 119 U/L (46-116); ASPARTATE AMINO TRANSFERASE 25 U/L (15-37); BILIRUBIN,TOTAL 0.2 MG/DL (0.2-1.0)
[2018-06-21 09:23] LABS: APPEARANCE,URINE CLEAR; BILIRUBIN, URINE NEGATIVE (NEGATIVE); COLOR,URINE PALE YELLOW; GLUCOSE, URINE (UA) NEGATIVE (NEGATIVE); KETONES,URINE NEGATIVE (NEGATIVE); LEUKOCYTE ESTERASE ,URINE NEGATIVE (NEGATIVE); NITRITE,URINE NEGATIVE (NEGATIVE); PH,URINE 5 (4.5-8.0); PROTEIN,URINE 2+ (NEGATIVE); UROBILINOGEN,URINE NORMAL MG/DL (0.0-1.0)
--- NOTE | 2018-06-21 11:16 | NUR ---
ED Nurse Note: pt is c/o headache. notified Dr. Gutierrez
[2018-06-21 11:20] VITALS: BP 156/86
--- NOTE | 2018-06-21 11:20 | NUR ---
ED Nurse Note: Pt. AAOX4. AMBULATORY. LEFT WITH STEADY GAIT. VSS. ID ARMBAND REMOVED. PT EDUCATION DONE REGARDING D/C INSTRUCTIONS AND PRESCRIPTION. PT. VERBALIZED THE UNDERSTANDING.
== END 2018-06-21 11:20 | disposition home or self-care (01) ==
LOC: EDBD 08:02 → EMR 08:16
DX: G40.909 Epilepsy, unspecified, not intractable, without status epilepticus (principal); E11.9 Type 2 diabetes mellitus without complications
CPT/HCPCS: 36415; 80053; 80329; 81003; 84484; 85025; 93005; 96361; 96374; 99284; J1953

== ENCOUNTER 2018-06-25 04:19 | Emergency (ER) | payer OTHER ==
[~2018-06-25] VITALS: Ht 180.3 cm; Wt 90.7 kg
[2018-06-25 04:19] VITALS: BP 126/91
--- NOTE | 2018-06-25 04:19 | NUR ---
ED Nurse Note: Pt was BIBA from home, c/o Pt was very agitated and confused at home, and Family called 911. EMS report that they give vaset on the way came to hospital. Pt is awake and asleeping, Vital signs stable at this time, waitng for orders.
[2018-06-25] MEDS ORDERED: UNOBMED (04:28)
--- NOTE | 2018-06-25 04:44 | Emergency Room Report ---
History of Present Illness General Chief Complaint: Altered Mental Status Source: EMS Present Illness HPI Patient is a 33-year-old male brought in by EMS after increased altered mental status. Patient a prior history of seizure disorder. Patient had been noted to have increased bizarre behavior. Patient had previously had some bizarre behavior after seizure episodes. Patient been given Versed by EMS prior to arrival. History is markedly limited by patient's mental status. Allergies: Coded Allergies: No Known Allergies (Unverified , 08/05/14) UNABLE TO ASSESS (Unverified , 03/19/18) Patient History Past Medical History: see triage record Reviewed Nursing Documentation: PMH: Agreed; PSxH: Agreed Nursing Documentation-PMH Hx Diabetes: Yes Hx Seizures: Yes Review of Systems All Other Systems: limited Physical Exam Vital Signs Date Time Temp Pulse Resp B/P (MAP) Pulse Ox O2 Delivery O2 Flow Rate FiO2 06/25/18 04:22 114 16 132/82 99 Room Air Sp02 EP Interpretation: reviewed, normal General Appearance: normal inspection Head: atraumatic ENT: normal ENT inspection, hearing grossly normal, normal voice Neck: normal inspection, full range of motion, supple, no bony tend Respiratory: normal inspection, lungs clear, normal breath sounds, no respiratory distress, no retraction, no wheezing Cardiovascular #1: regular rate, rhythm, no edema Gastrointestinal: normal inspection, normal bowel sounds, non tender, soft, no guarding, no hernia Genitourinary: no CVA tenderness Musculoskeletal: normal inspection, back normal, normal range of motion Psychiatric: other - somnolent Skin: normal inspection, normal color, no rash Procedures Critical Care Time Critical Care Time Patient had a critical medical condition which untreated could potentially result in life or limb threatening injury. Total critical care time excluding procedures approximately 45 minutes. Medical Decision Making Diagnostic Impression: Primary Impression: Seizure disorder Additional Impression: Epileptic seizure, generalized ER Course Presented for altered mental status. Differential diagnosis include was not limited to alcohol intoxication, seizure, hyponatremia, hypoglycemic episode among others. Because of complexity of patient's case laboratory testing and imaging studies were ordered.Patient was noted to have prior history of seizure disorder. Patient is noted to have approximately 5-minute seizure in the emergency department. Patient became combative after this was placed into restraints due to swinging at staff. Patient was given medications for sedation. He had previously received Versed in the field. Patient was evidently given IV Keppra Patient was started on IV fluids. The patient was discussed with Dr. Alvarez who agreed to accept the patient in transfer. Labs Test 06/25/18 05:34 White Blood Count 22.7 K/UL (4.8-10.8) Red Blood Count 5.62 M/UL (4.70-6.10) Hemoglobin 15.1 G/DL (14.2-18.0) Hematocrit 47.8 % (42.0-52.0) Mean Corpuscular Volume 85 FL (80-99) Mean Corpuscular Hemoglobin 26.8 PG (27.0-31.0) Mean Corpuscular Hemoglobin Concent 31.5 G/DL (32.0-36.0) Red Cell Distribution Width 13.9 % (11.6-14.8) Platelet Count 305 K/UL (150-450) Mean Platelet Volume 5.7 FL (6.5-10.1) Neutrophils (%) (Auto) % (45.0-75.0) Lymphocytes (%) (Auto) % (20.0-45.0) Monocytes (%) (Auto) % (1.0-10.0) Eosinophils (%) (Auto) % (0.0-3.0) Basophils (%) (Auto) % (0.0-2.0) Sodium Level 145 MMOL/L (136-145) Potassium Level 3.6 MMOL/L (3.5-5.1) Chloride Level 105 MMOL/L (98-107) Carbon Dioxide Level 18 MMOL/L (21-32) Anion Gap 22 mmol/L (5-15) Blood Urea Nitrogen 9 mg/dL (7-18) Creatinine 1.5 MG/DL (0.55-1.30) Estimat Glomerular Filtration Rate > 60 mL/min (>60) Glucose Level 101 MG/DL (74-106) Calcium Level 9.9 MG/DL (8.5-10.1) Total Bilirubin 0.1 MG/DL (0.2-1.0) Aspartate Amino Transf (AST/SGOT) 22 U/L (15-37) Alanine Aminotransferase (ALT/SGPT) 28 U/L (12-78) Alkaline Phosphatase 138 U/L (46-116) Total Creatine Kinase 372 U/L (26-308) Total Protein 8.9 G/DL (6.4-8.2) Albumin 4.3 G/DL (3.4-5.0) Globulin 4.6 g/dL Albumin/Globulin Ratio 0.9 (1.0-2.7) Salicylates Level 4.9 ug/mL (2.8-20) Acetaminophen Level < 2 MCG/ML (10-30) Serum Alcohol < 3 mg/dL Last Vital Signs Date Time Temp Pulse Resp B/P (MAP) Pulse Ox O2 Delivery O2 Flow Rate FiO2 06/25/18 04:22 114 16 132/82 99 Room Air Status: unchanged Disposition: XFER SHT-TRM HOSP Condition: Stable Mitch Alarcon MD Jun 25, 2018 04:44
[2018-06-25] MEDS ORDERED: LORazepam Inj 2mg/ml 1ml ONE (05:25)
[2018-06-25] MEDS ORDERED: LORazepam Inj 2mg/ml 1ml IV ONE (05:30)
[2018-06-25] MEDS ORDERED: LORazepam Inj 2mg/ml 1ml IM ONE (05:30)
[2018-06-25] MEDS ORDERED: levETIRAcetam 500mg/NS100ml 100 ML IVPB ONE (05:30)
--- NOTE | 2018-06-25 05:40 | NUR ---
ED Nurse Note: Pt suddenly became agitated, Meds given as ordered.
[2018-06-25] MEDS ORDERED: Haloperidol 5mg/ml Inj IM ONE (06:00)
[2018-06-25] MEDS ORDERED: DiphenhydrAMINE 50mg/ml Inj IM ONE (06:00)
[2018-06-25 06:28] LABS: HEMATOCRIT 47.8 % (42.0-52.0); HEMOGLOBIN 15.1 G/DL (14.2-18.0); MEAN CORPUSCULAR VOLUME 85 FL (80-99); PLATELET COUNT 305 K/UL (150-450); RED BLOOD COUNT 5.62 M/UL (4.70-6.10); RED CELL DISTRIBUTION WIDTH 13.9 % (11.6-14.8)
[2018-06-25 06:34] LABS: ANION GAP 22 mmol/L (5-15); BLOOD UREA NITROGEN 9 mg/dL (7-18); CALCIUM 9.9 MG/DL (8.5-10.1); CARBON DIOXIDE 18 MMOL/L (21-32); CHLORIDE 105 MMOL/L (98-107); CREATININE 1.5 MG/DL (0.55-1.30); POTASSIUM 3.6 MMOL/L (3.5-5.1); SODIUM 145 MMOL/L (136-145); WHITE BLOOD COUNT 22.7 K/UL (4.8-10.8)
[2018-06-25 06:39] LABS: ALANINE AMINOTRANSFERASE 28 U/L (12-78); ALBUMIN 4.3 G/DL (3.4-5.0); ALBUMIN/GLOBULIN RATIO 0.9 (1.0-2.7); ALKALINE PHOSPHATASE 138 U/L (46-116); ASPARTATE AMINO TRANSFERASE 22 U/L (15-37); BILIRUBIN,TOTAL 0.1 MG/DL (0.2-1.0)
[2018-06-25 06:50] LABS: CREATINE KINASE 372 U/L (26-308)
--- NOTE | 2018-06-25 07:20 | NUR ---
HAND-OFF: Report given to Donald/ BETTY for continue care. Pt is still very agitated at this time. Side pad provided.
[2018-06-25 07:25] VITALS: BP 126/91
--- NOTE | 2018-06-25 07:33 | NUR ---
ED Nurse Note: REPORT RECEIVED FROM BETTY SHERMAN. PT AGITATED, OFF OF JEWELRY APPRAISER, AND IV PULLED OUT. ORDERS FOR BEHAVIORAL RESTRAINTS RECEIVED AND RESTRAINTS PLACED ON PT. CIRCULATION, SENSATION AND SKIN INTACT. PT TACHYCARDIC, TACHYPNEIC, AND DIAPHORETIC ON INITIAL ASSESSMENT - BP:119, RR: 27. BP: 145/75 AND O2 SAT 100% ON RA.
--- NOTE | 2018-06-25 07:35 | NUR ---
ED Nurse Note: URINE COLLECTED AND SENT TO LAB.
[2018-06-25 07:40] VITALS: BP 145/75
[2018-06-25 07:55] VITALS: BP 137/74
[2018-06-25 08:10] VITALS: BP 130/84
--- NOTE | 2018-06-25 08:25 | NUR ---
ED Nurse Note: [facility] AT BEDSIDE. REPORT GIVEN TO BENEDICTO, NURSING CHIEF CARDIOPULMONARY TECHNOLOGIST AT [facility] AND EMS AT BEDSIDE. PER NURSING CHIEF CARDIOPULMONARY TECHNOLOGIST, [facility] READY TO ACCEPT PT. PT TAKEN TO [facility] VIA AMBULANCE WITH RIGHT HAND IV 22G SALINE LOCK WITH ALL BELONGINGS ACCOMPANIED BY EMS.
[2018-06-25 08:28] VITALS: BP 130/84
== END 2018-06-25 08:28 | disposition short-term general hospital (02) ==
LOC: EDBD 04:19 → EDUNIT# 04:19 → EMR 04:40
DX: G40.409 Other generalized epilepsy and epileptic syndromes, not intractable, without status epilepticus (principal); E11.9 Type 2 diabetes mellitus without complications
CPT/HCPCS: 36415; 80053; 80307; 80329; 82550; 85007; 85025; 96361; 96365; 96372; 96375; 99284; J1200; J1630; J1953; J2250

== ENCOUNTER 2018-07-04 08:12 | Emergency (ER) | payer OTHER ==
[~2018-07-04] VITALS: Ht 175.3 cm; Wt 99.8 kg
[~2018-07-04 08:12] MED LIST changes: +UNOBMED
[2018-07-04 08:15] VITALS: BP 111/76
--- NOTE | 2018-07-04 08:15 | NUR ---
ED Nurse Note: BROUGHT IN BY RA 70 FROM HOME DUE TO WITNESSED SEIZURE. PER EMS, PT'S FAMILY WITNESSED THE SEIZURE BUT DID NOT PROVIDE WHICH MEDICATION PT TAKES FOR SEIZURE. MIDAZOLAM 5MG IM GIVEN BY EMS. BS AT THE BEDSIDE IS 95. PT IS COMBATIVE. DOES NOT RESPOND TO QUESTIONS. O2 SAT OF 97% RA. UNKNOWN WHITE POWDER AND HARRISON FOUND IN PT'S SOCKS. ATIVAN 2MG IM VERBAL ORDER RECEIVED.
--- NOTE | 2018-07-04 08:25 | NUR ---
ED Nurse Note: NURSING SUP CONTACTED FOR HARRISON AND UNKNOWN POWDER. NO RESPONSE FROM NURSING SUP AT THIS TIME. SECURITY IS AWARE.
[2018-07-04] MEDS ORDERED: LORazepam Inj 2mg/ml 1ml ONE (08:36)
[2018-07-04] MEDS ORDERED: LORazepam Inj 2mg/ml 1ml IM ONE (08:45)
[2018-07-04] MEDS ORDERED: levETIRAcetam 500 MG in D5W 110 ML IV ONE (08:45)
--- NOTE | 2018-07-04 09:05 | NUR ---
ED Nurse Note: ALL MEDICATIONS GIVEN TO PT. PT IS SLEEPING IN THE ROOM. VSS. NO S/S OF DISTRESS OR SEIZURE NOTED.
--- NOTE | 2018-07-04 09:06 | Emergency Room Report ---
History of Present Illness General Chief Complaint: Seizure Source: Medical Record Present Illness HPI 33-year-old male presents ED for evaluation. Patient brought in by EMS status post seizure. Upon arrival patient is agitated. Patient has history of seizures. Takes Keppra. Patient is unable to provide any history at this time. Patient has been here previously for similar presentation. Patient is known to be combative when post ictal. No reported head injury. No other aggravating relieving factors. No other associated symptoms Allergies: Coded Allergies: No Known Allergies (Unverified , 08/05/14) Patient History Past Medical History: DM, seizures Past Surgical History: none Pertinent Family History: none Social History: Denies: smoking, alcohol use, drug use Immunizations: UTD Reviewed Nursing Documentation: PMH: Agreed; PSxH: Agreed Nursing Documentation-PMH Past Medical History: No History, Except For Hx Diabetes: Yes Hx Seizures: Yes Review of Systems All Other Systems: limited Physical Exam Vital Signs Date Time Temp Pulse Resp B/P (MAP) Pulse Ox O2 Delivery O2 Flow Rate FiO2 07/04/18 08:11 98.2 100 14 165/78 98 Room Air Sp02 EP Interpretation: reviewed, normal General Appearance: GCS 15, non-toxic, Postictal Head: normocephalic Eyes: bilateral eye normal inspection, bilateral eye PERRL ENT: normal ENT inspection Neck: normal inspection Respiratory: chest non-tender, lungs clear, normal breath sounds, speaking full sentences Cardiovascular #1: regular rate, rhythm, no edema Gastrointestinal: normal inspection Rectal: deferred Genitourinary: no CVA tenderness Musculoskeletal: normal inspection Neurologic: other - postictal Psychiatric: other - postictal Skin: normal inspection Lymphatic: normal inspection Medical Decision Making Diagnostic Impression: Primary Impression: Seizure disorder Additional Impression: Substance abuse ER Course Hospital Course 33-year-old M presents to ED status post seizure. Post ictal and agitated on arrival Differential diagnosis includes- breakthrough seizure, alcohol abuse, noncompliance with medication Clinical course Patient placed on stretcher. Initial history and physical I ordered IM Ativan as patient was not amenable to IV placement and evaluation. I ordered Labs, IV fluids, Keppra Labs-electrolytes okay, no leukocytosis, hemoglobin/hematocrit stable. UTOX + mulitple substances Patient allowed to rest is now awake alert oriented x3. ambulating without difficulty. Discussed findings with patient. Discussed that drug use can lower seizure threshold. Patient states he missed his medication last night. States he has a PMD. DMV forms admitted. We'll provide PMD referrals. Diagnosis - seizure disorder, substance abuse stable and discharged to home. Followup with PMD. Return to ED if symptoms recur or worsen Labs Test 07/04/18 08:45 07/04/18 08:50 White Blood Count 7.7 K/UL (4.8-10.8) Red Blood Count 5.67 M/UL (4.70-6.10) Hemoglobin 14.9 G/DL (14.2-18.0) Hematocrit 47.7 % (42.0-52.0) Mean Corpuscular Volume 84 FL (80-99) Mean Corpuscular Hemoglobin 26.2 PG (27.0-31.0) Mean Corpuscular Hemoglobin Concent 31.2 G/DL (32.0-36.0) Red Cell Distribution Width 14.0 % (11.6-14.8) Platelet Count 262 K/UL (150-450) Mean Platelet Volume 6.8 FL (6.5-10.1) Neutrophils (%) (Auto) 54.5 % (45.0-75.0) Lymphocytes (%) (Auto) 30.2 % (20.0-45.0) Monocytes (%) (Auto) 12.4 % (1.0-10.0) Eosinophils (%) (Auto) 0.8 % (0.0-3.0) Basophils (%) (Auto) 2.1 % (0.0-2.0) Sodium Level 140 MMOL/L (136-145) Potassium Level 4.2 MMOL/L (3.5-5.1) Chloride Level 102 MMOL/L (98-107) Carbon Dioxide Level 24 MMOL/L (21-32) Anion Gap 14 mmol/L (5-15) Blood Urea Nitrogen 16 mg/dL (7-18) Creatinine 1.3 MG/DL (0.55-1.30) Estimat Glomerular Filtration Rate > 60 mL/min (>60) Glucose Level 82 MG/DL (74-106) Calcium Level 9.7 MG/DL (8.5-10.1) Total Bilirubin 0.2 MG/DL (0.2-1.0) Aspartate Amino Transf (AST/SGOT) 42 U/L (15-37) Alanine Aminotransferase (ALT/SGPT) 32 U/L (12-78) Alkaline Phosphatase 118 U/L (46-116) Total Protein 8.4 G/DL (6.4-8.2) Albumin 4.2 G/DL (3.4-5.0) Globulin 4.2 g/dL Albumin/Globulin Ratio 1.0 (1.0-2.7) Salicylates Level 5.2 ug/mL (2.8-20) Acetaminophen Level < 2 MCG/ML (10-30) Serum Alcohol < 3 mg/dL Urine Opiates Screen Negative (NEGATIVE) Urine Barbiturates Screen Negative (NEGATIVE) Phencyclidine (PCP) Screen Negative (NEGATIVE) Urine Amphetamines Screen Positive (NEGATIVE) Urine Benzodiazepines Screen Positive (NEGATIVE) Urine Cocaine Screen Positive (NEGATIVE) Urine Marijuana (THC) Screen Positive (NEGATIVE) Last Vital Signs Date Time Temp Pulse Resp B/P (MAP) Pulse Ox O2 Delivery O2 Flow Rate FiO2 07/04/18 08:15 95 23 Room Air 07/04/18 08:15 98.2 111/76 100 Status: improved Disposition: HOME, SELF-CARE Condition: Stable Referrals: [facility],REFERRING (PCP) Bryant Burdick MD Jul 04, 2018 09:06
[2018-07-04 09:25] LABS: ANION GAP 14 mmol/L (5-15); BASOPHILS % (AUTO) 2.1 % (0.0-2.0); BLOOD UREA NITROGEN 16 mg/dL (7-18); CALCIUM 9.7 MG/DL (8.5-10.1); CARBON DIOXIDE 24 MMOL/L (21-32); CHLORIDE 102 MMOL/L (98-107); CREATININE 1.3 MG/DL (0.55-1.30); EOSINOPHILS % (AUTO) 0.8 % (0.0-3.0); HEMATOCRIT 47.7 % (42.0-52.0); HEMOGLOBIN 14.9 G/DL (14.2-18.0); LYMPHOCYTES % (AUTO) 30.2 % (20.0-45.0); MEAN CORPUSCULAR VOLUME 84 FL (80-99); MONOCYTES % (AUTO) 12.4 % (1.0-10.0); NEUTROPHILS % (AUTO) 54.5 % (45.0-75.0); PLATELET COUNT 262 K/UL (150-450); POTASSIUM 4.2 MMOL/L (3.5-5.1); RED BLOOD COUNT 5.67 M/UL (4.70-6.10); SODIUM 140 MMOL/L (136-145); WHITE BLOOD COUNT 7.7 K/UL (4.8-10.8)
[2018-07-04 09:29] LABS: ALANINE AMINOTRANSFERASE 32 U/L (12-78); ALBUMIN 4.2 G/DL (3.4-5.0); ALKALINE PHOSPHATASE 118 U/L (46-116); ASPARTATE AMINO TRANSFERASE 42 U/L (15-37); BILIRUBIN,TOTAL 0.2 MG/DL (0.2-1.0)
[2018-07-04 11:51] VITALS: BP 120/90
[2018-07-04] MEDS ORDERED: Ketorolac 30mg Inj IV ONE (12:30)
[2018-07-04 12:58] VITALS: BP 128/90
--- NOTE | 2018-07-04 13:00 | NUR ---
ED Nurse Note: Pt cleared by health care Provider for discharge. DC instructions/prescription was given and explained to pt and verbalized understanding of teachings. All medical deviecs such as ID band removed. Pt is AAO x4, ambulatory and left with all personal belongings. Pt's sister picked up the patient from ER. Denies any pain. Pt filled out Lapses of Consciousness formed and given to MENDOZA Foster.
== END 2018-07-04 13:02 | disposition home or self-care (01) ==
LOC: EDBD 08:12 → EMR 08:34
DX: G40.909 Epilepsy, unspecified, not intractable, without status epilepticus (principal); E11.9 Type 2 diabetes mellitus without complications
CPT/HCPCS: 36415; 80053; 80307; 80329; 82962; 85025; 96361; 96372; 96374; 96375; 99284; J1885; J1953

== ENCOUNTER 2018-08-13 19:05 | Emergency (ER) | payer OTHER ==
[~2018-08-13] VITALS: Ht 185.4 cm; Wt 99.8 kg
[2018-08-13 19:09] VITALS: BP 137/73
[2018-08-13] MEDS ORDERED: Midazolam 2mg/2ml Inj IVP ONE ×2 (19:15→20:15)
--- NOTE | 2018-08-13 19:25 | NUR ---
ED Nurse Note: Patient was brought by RA from home due to seizure. Per EMT family members were witnesing 35 sec seizure at home. Patient AAO x4, VSS at this time, skin is dry, intact, warm to touch. Patient a little combative, trying ti fight. ER MD notifyed. Will continue to monitor.
[2018-08-13 19:30] VITALS: BP 137/65
[2018-08-13] MEDS ORDERED: LORazepam Inj 2mg/ml 1ml ONE ×2 (19:35→22:09)
[2018-08-13 19:44] LABS: ANION GAP 14 mmol/L (5-15); BLOOD UREA NITROGEN 10 mg/dL (7-18); CALCIUM 9.7 MG/DL (8.5-10.1); CARBON DIOXIDE 25 MMOL/L (21-32); CHLORIDE 104 MMOL/L (98-107); CREATININE 1.2 MG/DL (0.55-1.30); POTASSIUM 4.7 MMOL/L (3.5-5.1); SODIUM 143 MMOL/L (136-145)
[2018-08-13 19:45] LABS: BASOPHILS % (AUTO) 1.5 % (0.0-2.0); EOSINOPHILS % (AUTO) 1.4 % (0.0-3.0); HEMATOCRIT 41.8 % (42.0-52.0); HEMOGLOBIN 13.3 G/DL (14.2-18.0); LYMPHOCYTES % (AUTO) 37.7 % (20.0-45.0); MEAN CORPUSCULAR VOLUME 83 FL (80-99); MONOCYTES % (AUTO) 8.7 % (1.0-10.0); NEUTROPHILS % (AUTO) 50.7 % (45.0-75.0); PLATELET COUNT 268 K/UL (150-450); RED BLOOD COUNT 5.04 M/UL (4.70-6.10); RED CELL DISTRIBUTION WIDTH 14.5 % (11.6-14.8); WHITE BLOOD COUNT 7.4 K/UL (4.8-10.8)
[2018-08-13] MEDS ORDERED: LORazepam Inj 2mg/ml 1ml IV ONE ×2 (19:45→21:45)
--- NOTE | 2018-08-13 19:47 | NUR ---
ED Nurse Note: Administered Versed 2mg. PER DR. Page withhold Ativan 2mg.
[2018-08-13 19:48] LABS: ALANINE AMINOTRANSFERASE 36 U/L (12-78); ALBUMIN 3.8 G/DL (3.4-5.0); ALKALINE PHOSPHATASE 122 U/L (46-116); ASPARTATE AMINO TRANSFERASE 24 U/L (15-37); BILIRUBIN,TOTAL 0.1 MG/DL (0.2-1.0)
--- NOTE | 2018-08-13 19:55 | NUR ---
ED Nurse Note: Patient had tonic clonic seizure for 25 sec. See intervations.
--- NOTE | 2018-08-13 19:58 | Emergency Room Report ---
History of Present Illness General Chief Complaint: Seizure Source: Patient Present Illness HPI Patient presents with complaints of seizure activity Patient was brought in by paramedics There were approximately 8 paramedics with the patient apparently he was fairly aggressive and agitated upon their arrival Patient has had multiple seizure activity where he is essentially extremely agitated and aggressive and physically abusive during his possible post ictal states Upon initial arrival patient denies any chest pain or headache He did have another seizure soon after arrival however Tonic-clonic in nature Allergies: Coded Allergies: No Known Allergies (Unverified , 08/05/14) Patient History Past Medical History: see triage record Pertinent Family History: none Reviewed Nursing Documentation: PMH: Agreed; PSxH: Agreed Nursing Documentation-PMH Past Medical History: No History, Except For Hx Diabetes: Yes Hx Neurological Problems: Yes - SEIZURE Hx Seizures: Yes Review of Systems All Other Systems: negative except mentioned in HPI Physical Exam Vital Signs Date Time Temp Pulse Resp B/P (MAP) Pulse Ox O2 Delivery O2 Flow Rate FiO2 08/13/18 18:53 98.1 89 18 137/73 100 Room Air Sp02 EP Interpretation: reviewed, normal General Appearance: well appearing, no apparent distress Head: normocephalic, atraumatic Eyes: bilateral eye PERRL, bilateral eye EOMI ENT: hearing grossly normal, normal pharynx, TMs + canals normal, uvula midline Neck: full range of motion, supple, no meningismus, no bony tend Respiratory: lungs clear, normal breath sounds, no rhonchi, no respiratory distress, no retraction, no accessory muscle use Cardiovascular #1: normal peripheral pulses, regular rate, rhythm, no edema, no gallop, no JVD, no murmur Gastrointestinal: normal bowel sounds, non tender, soft, no mass, no organomegaly, non-distended, no guarding, no hernia, no pulsatile mass, no rebound Genitourinary: no CVA tenderness Musculoskeletal: normal inspection Neurologic: oriented x3, responsive, coagulating drying supervisor III-XII nml as tested, motor strength/ tone normal, sensory intact Psychiatric: mood/affect normal Skin: normal color, no rash, warm/dry, palpation normal Lymphatic: normal inspection, no adenopathy Procedures Critical Care Time Critical Care Time 50 minutes for multiple re-evaluations neurological examinations, multiple seizures concerning for intracranial injury not including any procedural time, Medical Decision Making Diagnostic Impression: Primary Impression: Epileptic seizure, generalized ER Course Multiple differentials and consideration Patient has had several presentations to our hospital recently Previous urine drug screen is also showing cocaine and amphetamine positive this was not repeated today Patient becomes neurologically intact and GCS 15 after the postictal states however again has had repeat seizure activity At this time request was made for admission given the patient's insurance request for transfer was made Labs Test 08/13/18 19:25 White Blood Count 7.4 K/UL (4.8-10.8) Red Blood Count 5.04 M/UL (4.70-6.10) Hemoglobin 13.3 G/DL (14.2-18.0) Hematocrit 41.8 % (42.0-52.0) Mean Corpuscular Volume 83 FL (80-99) Mean Corpuscular Hemoglobin 26.4 PG (27.0-31.0) Mean Corpuscular Hemoglobin Concent 31.8 G/DL (32.0-36.0) Red Cell Distribution Width 14.5 % (11.6-14.8) Platelet Count 268 K/UL (150-450) Mean Platelet Volume 6.1 FL (6.5-10.1) Neutrophils (%) (Auto) 50.7 % (45.0-75.0) Lymphocytes (%) (Auto) 37.7 % (20.0-45.0) Monocytes (%) (Auto) 8.7 % (1.0-10.0) Eosinophils (%) (Auto) 1.4 % (0.0-3.0) Basophils (%) (Auto) 1.5 % (0.0-2.0) Sodium Level 143 MMOL/L (136-145) Potassium Level 4.7 MMOL/L (3.5-5.1) Chloride Level 104 MMOL/L (98-107) Carbon Dioxide Level 25 MMOL/L (21-32) Anion Gap 14 mmol/L (5-15) Blood Urea Nitrogen 10 mg/dL (7-18) Creatinine 1.2 MG/DL (0.55-1.30) Estimat Glomerular Filtration Rate > 60 mL/min (>60) Glucose Level 79 MG/DL (74-106) Calcium Level 9.7 MG/DL (8.5-10.1) Total Bilirubin 0.1 MG/DL (0.2-1.0) Aspartate Amino Transf (AST/SGOT) 24 U/L (15-37) Alanine Aminotransferase (ALT/SGPT) 36 U/L (12-78) Alkaline Phosphatase 122 U/L (46-116) Total Protein 7.7 G/DL (6.4-8.2) Albumin 3.8 G/DL (3.4-5.0) Globulin 3.9 g/dL Albumin/Globulin Ratio 1.0 (1.0-2.7) Lipase 142 U/L (73-393) Rhythm Strip Diag. Results EP Interpretation: yes Rate: 77 Rhythm: NSR, no PVC's, no ectopy Last Vital Signs Date Time Temp Pulse Resp B/P (MAP) Pulse Ox O2 Delivery O2 Flow Rate FiO2 08/13/18 19:09 98.1 18 137/73 100 Room Air 08/13/18 19:09 93 Status: improved Disposition: XFER SHT-TRM HOSP Condition: Serious Referrals: [facility],REFERRING (PCP) David Page DO Aug 13, 2018 19:57
[2018-08-13] MEDS ORDERED: Haloperidol 5mg/ml Inj IM ONE (20:15)
[2018-08-13] MEDS ORDERED: DiphenhydrAMINE 50mg/ml Inj IVP ONE (20:15)
[2018-08-13] MEDS ORDERED: levETIRAcetam 500mg/NS100ml 100 ML IVPB ONE (20:15)
[2018-08-13 21:00] VITALS: BP 125/70
[2018-08-13] MEDS ORDERED: LORazepam Inj 2mg/ml 1ml IM ONE (22:15)
[2018-08-13 22:35] VITALS: BP 128/68
--- NOTE | 2018-08-13 22:55 | NUR ---
ED Nurse Note: Gave report to BETTY Charles at [facility].
[2018-08-13 23:00] VITALS: BP 128/68
--- NOTE | 2018-08-13 23:00 | NUR ---
ED Nurse Note: Patient was transfered to [facility]. AAO x3, VSS at this time. All belongings were given to the patient. Patient was transfered by ACLS protocol.
== END 2018-08-13 23:00 | disposition short-term general hospital (02) ==
LOC: EDBD 19:05 → EDBEDREQ 19:13 → EMR 19:47 → EDBEDREQ 20:47 → EMR 23:00
DX: G40.409 Other generalized epilepsy and epileptic syndromes, not intractable, without status epilepticus (principal); E11.9 Type 2 diabetes mellitus without complications
CPT/HCPCS: 36415; 80053; 83690; 85025; 96361; 96372; 96374; 96375; 96376; 99291; J1200; J1630; J1953; J2250; 99284

== ENCOUNTER 2018-08-23 02:23 | Inpatient (IN) | payer OTHER ==
[~2018-08-23] VITALS: Ht 185.4 cm; Wt 81.6 kg
--- NOTE | 2018-08-23 02:38 | Emergency Room Report ---
History of Present Illness General Chief Complaint: Seizure Source: Patient, EMS Present Illness HPI Patient presents post seizure. This was witnessed by family. He hit his left eye on a bedside table. Accu-Chek was normal in the field. Paramedics stated he was oriented after the event. He supposed be taking Keppra at this time. There is swelling of the left eye. Patient has a history of multiple seizures in the past. Last here 08/13 and needing to be transferred [facility] due to insurance for recurrent seizures. H/O violent post-ictal occurrences. No fevers, chills, chest pain, palpitations, nausea, vomiting, diarrhea, dysuria , abdominal pain, shortness of breath, depression, headache. Allergies: Coded Allergies: No Known Allergies (Unverified , 08/05/14) Patient History Past Medical History: see triage record Social History: Reports: smoking, drug use Social History Narrative from home Reviewed Nursing Documentation: PMH: Agreed; PSxH: Agreed Nursing Documentation-PMH Hx Diabetes: Yes Hx Neurological Problems: Yes - SEIZURE Hx Seizures: Yes Review of Systems All Other Systems: negative except mentioned in HPI Physical Exam Vital Signs Date Time Temp Pulse Resp B/P (MAP) Pulse Ox O2 Delivery O2 Flow Rate FiO2 08/23/18 02:24 98.2 101 18 158/110 99 Room Air Sp02 EP Interpretation: reviewed, normal General Appearance: no apparent distress, alert - GCS 13 - eyes closed and not remember event Head: normocephalic Eyes: left eye other - . We'll swelling; bilateral eye PERRL, bilateral eye EOMI ENT: normal pharynx, moist mucus membranes - Noted we will laceratio, other - swelling L upper lip Neck: supple, no bony tend Respiratory: chest non-tender, lungs clear Cardiovascular #1: regular rate, rhythm, no edema Cardiovascular #2: 2+ radial (L) Gastrointestinal: non tender, soft, decreased bowel sounds, scaphoid Musculoskeletal: back normal, digits/nails normal, no calf tenderness Neurologic: pet groomer III-XII nml as tested, motor strength/tone normal, DTRs symmetric, sensory intact, oriented - 2 Psychiatric: other - Somewhat avoiding of answering q Skin: other - Swelling left eye Medical Decision Making Diagnostic Impression: Primary Impression: Seizure Additional Impressions: Cocaine abuse Traumatic closed nondisplaced fracture of orbit Qualified Codes: S02.80XA - Fracture of other specified skull and facial bones , unspecified side, initial encounter for closed fracture ER Course Patient presents post seizure. He has trauma to his left eye. Differential includes breakthrough seizure, electrolyte abnormality, high trauma, noncompliance amongst others. The patient will be evaluated with maxillofacial CT, EKG, labs. The patient will be treated with Ativan and Keppra. I will be reevaluated when the patient is less post ictal period. EKG no injury. Labs with elevated CK and alk phos. + Cocaine and ThC. Patient fully oriented and understood discharge when discussed. States has enough medication. Patient had another seizure. Versed given IM. Keppra [address] Barragan. Minimally post ictal. Follows commands. Laboratory Tests Test 08/23/18 02:40 White Blood Count 7.4 K/UL (4.8-10.8) Red Blood Count 5.33 M/UL (4.70-6.10) Hemoglobin 14.3 G/DL (14.2-18.0) Hematocrit 44.9 % (42.0-52.0) Mean Corpuscular Volume 84 FL (80-99) Mean Corpuscular Hemoglobin 26.9 PG (27.0-31.0) L Mean Corpuscular Hemoglobin Concent 31.9 G/DL (32.0-36.0) L Red Cell Distribution Width 15.2 % (11.6-14.8) H Platelet Count 251 K/UL (150-450) Mean Platelet Volume 6.9 FL (6.5-10.1) Neutrophils (%) (Auto) 49.5 % (45.0-75.0) Lymphocytes (%) (Auto) 42.1 % (20.0-45.0) Monocytes (%) (Auto) 5.4 % (1.0-10.0) Eosinophils (%) (Auto) 1.4 % (0.0-3.0) Basophils (%) (Auto) 1.6 % (0.0-2.0) Urine Color Pale yellow Urine Appearance Clear Urine pH 5 (4.5-8.0) Urine Specific [place] 1.025 (1.005-1.035) Urine Protein 1+ (NEGATIVE) H Urine Glucose (UA) Negative (NEGATIVE) Urine Ketones 1+ (NEGATIVE) H Urine Blood 1+ (NEGATIVE) H Urine Nitrite Negative (NEGATIVE) Urine Bilirubin Negative (NEGATIVE) Urine Urobilinogen Normal MG/DL (0.0-1.0) Urine Leukocyte Esterase Negative (NEGATIVE) Urine RBC 0-2 /HPF (0 - 0) H Urine WBC 0 /HPF (0 - 0) Urine Squamous Epithelial Cells None /LPF (NONE/OCC) Urine Bacteria None /HPF (NONE) Sodium Level 141 MMOL/L (136-145) Potassium Level 4.3 MMOL/L (3.5-5.1) Chloride Level 104 MMOL/L (98-107) Carbon Dioxide Level 23 MMOL/L (21-32) Anion Gap 14 mmol/L (5-15) Blood Urea Nitrogen 9 mg/dL (7-18) Creatinine 1.1 MG/DL (0.55-1.30) Estimate Glomerular Filtration Rate mL/min (>60) Glucose Level 98 MG/DL (74-106) Calcium Level 9.3 MG/DL (8.5-10.1) Total Bilirubin 0.1 MG/DL (0.2-1.0) L Aspartate Amino Transferase (AST) 28 U/L (15-37) Alanine Aminotransferase (ALT) 42 U/L (12-78) Alkaline Phosphatase 131 U/L (46-116) H Total Creatine Kinase 282 U/L (26-140) H Total Protein 7.7 G/DL (6.4-8.2) Albumin 3.8 G/DL (3.4-5.0) Globulin 3.9 g/dL Albumin/Globulin Ratio 1.0 (1.0-2.7) Urine Opiates Screen Negative (NEGATIVE) Urine Barbiturates Screen Negative (NEGATIVE) Phencyclidine (PCP) Screen Negative (NEGATIVE) Urine Amphetamines Screen Negative (NEGATIVE) Urine Benzodiazepines Screen Negative (NEGATIVE) Urine Cocaine Screen Positive (NEGATIVE) H Urine Marijuana (THC) Screen Positive (NEGATIVE) H EKG Diagnostic Results Rate: normal Rhythm: NSR ST Segments: no acute changes Rhythm Strip Diag. Results EP Interpretation: yes Rhythm: NSR, no PVC's, no ectopy CT/MRI/US Diagnostic Results CT/MRI/US Diagnostic Results : Imaging Test Ordered: CT maxilofacial Impression no fx, small focus air in medial L orbit Last Vital Signs Date Time Temp Pulse Resp B/P (MAP) Pulse Ox O2 Delivery O2 Flow Rate FiO2 4/26/19 12:00 98.6 87 18 118/86 (97) 98 08/23/18 09:00 Room Air Room Air Status: improved Disposition: ADMITTED INPATIENT Condition: Serious Scripts Levetiracetam (Keppra) 250 Mg Tablet 1000 MG ORAL EVERY 12 HOURS for 30 Days, TAB Prov: Melanie Arredondo MD 08/23/18 Antwon Dean MD Aug 23, 2018 02:38
[2018-08-23] MEDS ORDERED: LORazepam Inj 2mg/ml 1ml IV ONE (02:45)
[2018-08-23] MEDS ORDERED: levETIRAcetam 500 MG in D5W 110 ML IV ONE (02:45)
[2018-08-23 02:49] VITALS: BP 138/86
--- NOTE | 2018-08-23 02:55 | NUR ---
ER Nurse Note: Pt BIBA from home c/o seizure. Per EMS, seizure was witnessed by family but not at bedside; pt unable to inform the duration, onset of episode. Pt stated he does not remember what happened prior, during, post episode. Pt a&ox3, VSS, no signs of distress. Pt has a contusion on left forehead; 8/10 pain. Siderails padded, lights turned off, bed in lowest position. Will continue to montior.
[2018-08-23 03:28] LABS: BASOPHILS % (AUTO) 1.6 % (0.0-2.0); EOSINOPHILS % (AUTO) 1.4 % (0.0-3.0); HEMATOCRIT 44.9 % (42.0-52.0); HEMOGLOBIN 14.3 G/DL (14.2-18.0); LYMPHOCYTES % (AUTO) 42.1 % (20.0-45.0); MEAN CORPUSCULAR VOLUME 84 FL (80-99); MONOCYTES % (AUTO) 5.4 % (1.0-10.0); NEUTROPHILS % (AUTO) 49.5 % (45.0-75.0); PLATELET COUNT 251 K/UL (150-450); RED BLOOD COUNT 5.33 M/UL (4.70-6.10); RED CELL DISTRIBUTION WIDTH 15.2 % (11.6-14.8); WHITE BLOOD COUNT 7.4 K/UL (4.8-10.8)
[2018-08-23 03:34] LABS: ANION GAP 14 mmol/L (5-15); CARBON DIOXIDE 23 MMOL/L (21-32); CHLORIDE 104 MMOL/L (98-107); POTASSIUM 4.3 MMOL/L (3.5-5.1); SODIUM 141 MMOL/L (136-145)
[2018-08-23 03:35] LABS: BLOOD UREA NITROGEN 9 mg/dL (7-18); CREATININE 1.1 MG/DL (0.55-1.30)
[2018-08-23 03:36] LABS: ALANINE AMINOTRANSFERASE 42 U/L (12-78); ALBUMIN 3.8 G/DL (3.4-5.0); ASPARTATE AMINO TRANSFERASE 28 U/L (15-37); BILIRUBIN,TOTAL 0.1 MG/DL (0.2-1.0); CALCIUM 9.3 MG/DL (8.5-10.1); CREATINE KINASE 282 U/L (26-140)
[2018-08-23 03:37] LABS: ALKALINE PHOSPHATASE 131 U/L (46-116)
[2018-08-23 03:40] LABS: APPEARANCE,URINE CLEAR; BILIRUBIN, URINE NEGATIVE (NEGATIVE); COLOR,URINE PALE YELLOW; GLUCOSE, URINE (UA) NEGATIVE (NEGATIVE); KETONES,URINE 1+ (NEGATIVE); LEUKOCYTE ESTERASE ,URINE NEGATIVE (NEGATIVE); NITRITE,URINE NEGATIVE (NEGATIVE); PH,URINE 5 (4.5-8.0); PROTEIN,URINE 1+ (NEGATIVE); UROBILINOGEN,URINE NORMAL MG/DL (0.0-1.0)
[2018-08-23] MEDS ORDERED: Bacitracin Oint UD TOPIC ONE (04:00)
--- NOTE | 2018-08-23 04:04 | NUR ---
ER Nurse Note: CT taken; awaiting results. Pt asleep; easily arousble. VSS, no signs of distress. No seizures on shift. All safety measures met; all orders completed per ERMD orders. Pt wound cleaned and bacitractin applied. Will continue to montior.
[2018-08-23 04:10] VITALS: BP 119/75
[2018-08-23] MEDS ORDERED: CEPHALEXIN500 MG ORAL (05:44)
[2018-08-23] MEDS ORDERED: TYLENOL325 MG ORAL (05:44)
--- NOTE | 2018-08-23 05:58 | NUR ---
ER Nurse Note: security Dionte contacted sister and told her to pick pt up within one hr. Pt a&ox4, VSS, no signs of distress. No seizures on shift. All safety measures met; will continue to montior.
[2018-08-23] MEDS ORDERED: Midazolam 2mg/2ml Inj IM ONE (06:15)
[2018-08-23] MEDS ORDERED: Midazolam 2mg/2ml Inj IVP ONE (06:15)
[2018-08-23] MEDS ORDERED: levETIRAcetam 500mg/NS100ml 100 ML IVPB ONE (06:30)
[2018-08-23 06:37] VITALS: BP 110/67
--- NOTE | 2018-08-23 07:22 | NUR ---
ER Nurse Note: Pt had a seizure at 0600, unwitnessed. Pt stood up, walked with unsteady gait; found and assisted by ADELFO Chi. No falls. Pt ripped out IV; site cleaned and bandaged. SLIV RI AC. Keppra given. Pt placed back into bed; VSS stable post ictal; pt asleep and pupils pinpoint at 1mm bilateral. No head trauma. All safety measures met; Will endorse care to oncoming shift for continutiy of care.
[2018-08-23] MEDS ORDERED: Morphine Sulfate 2mg/ml Inj(IV/IM USE ONLY) IVP PRN (08:15)
[2018-08-23] MEDS ORDERED: Zolpidem 5mg tab ORAL PRN (08:15)
[2018-08-23] MEDS ORDERED: LORazepam Inj 2mg/ml 1ml IV PRN (08:15)
[2018-08-23] MEDS ORDERED: Miralax 17gm pkt ORAL PRN (08:15)
[2018-08-23] MEDS ORDERED: Mylanta II UD 30ml ORAL PRN (08:15)
[2018-08-23] MEDS ORDERED: Dextrose 50% 25ml Syringe IV PRN (08:15)
--- NOTE | 2018-08-23 08:29 | NUR ---
ED Nurse Note: Report given to Genoveva HERNÁNDEZ of telemetry unit.
--- NOTE | 2018-08-23 08:31 | NUR ---
TRANSFER TO FLOOR: Patient transferred to telemetry unit as ordered. Report given to Genoveva HERNÁNDEZ . Belongings sent with pt. Family informed of transfer.
[2018-08-23 08:50] VITALS: BP 128/67
--- NOTE | 2018-08-23 08:50 | NUR ---
OBTAINED REPORT FROM LISA HERNÁNDEZ FROM ED. PT IS A 33 YEAR HERE DUE TO UNCONTROLLED SEIZURES. PT HAS HX OF DIABETES. ADMISSION PROTOCOL DONE. HEAD TO TOE ASSESSMENT DONE. SKIN INTACT. LEFT EYE CONTUSION NOTED UPON ADMISSION. LEFT EYE SWOLLEN, RED/PURPLE IN COLOR. NO OPEN SKIN SITE NOTED. PT UNABLE TO OPEN LEFT EYE. PT REPORTS THIS IS DUE TO SEIZURE AT HOME (STATES HE HIT LEFT EYE ON DRESSER NEAR BED WHEN SEIZURE OCCURRED AT HOME). BELONGINGS FORM SIGNED BY PT. PT EDUCATED ON FALL RISK & SEIZURE PRECAUTIONS(IN PLACE AT ALL TIMES). EDUCATED ON RISK FOR SKIN BREAKDOWN. VERBALIZED UNDERSTANDING. PT ORIENTED TO UNIT AND STAFF. ALL NEEDS ANTICIPATED AND MET. HANDOFF REPORT GIVEN TO DORY HERNÁNDEZ AND AC HERNÁNDEZ.
[2018-08-23] MEDS ORDERED: Heparin 5000 units/ml inj SUBQ SCH (09:00)
--- NOTE | 2018-08-23 10:04 | Diagnostic Imaging Report ---
Indication: Trauma and facial pain Technique: Continuous helical transaxial imaging of the maxillofacial structures obtained without intravenous contrast administration. Coronal 2-D reformats were also obtained. Study obtained in a Siemens sensation [address] Automatic Exposure Control was utilized. Total Dose length Product (DLP): [address] Dose Index Volume (CTDIvol): 0.15, 28.19 mGy Comparison: None Findings: There is a moderate degree of left periorbital soft tissue swelling and frontal scalp swelling due to contusion injury. There is no retrobulbar hemorrhage identified. The globes appear intact bilaterally. The orbits are symmetric bilaterally. There is some asymmetry due to slight obliquity in the image plane. There is mucosal thickening demonstrated. There is a fracture involving the medial wall the left orbit. A small amount of air is noted within the medial aspect of the left orbit adjacent to the medial rectus muscle. There is minimal proptosis on the left. IMPRESSION: Acute fracture of the medial wall of the left orbit with opacification of the ethmoid sinus on the left side and small amount of air that has breached into the left orbit. Minimal proptosis. No obvious retrobulbar hemorrhage. Moderate periorbital soft tissue swelling and left frontal scalp hematoma/contusion. [facility] has communicated the preliminary results to the Emergency Department. Their findings are largely concordant with this report. The CT scanner at [facility] is accredited by the [employer] and the scans are performed using dose optimization techniques as appropriate to a performed exam including Automatic Exposure control.
--- NOTE | 2018-08-23 10:34 | NUR ---
*-* NO INSURANCE INFORMATION IN THE BAR UNABLE TO SEND CLINICALS O REVIEWS *-*
--- NOTE | 2018-08-23 10:56 | Consultation ---
History of Present Illness General Date patient seen: Aug 23, 2018 Chief Complaint: Seizure Present Illness HPI 33 year old male with hx of seizures brought in by paramedics with CC of seizures. Pt is suppose to be taking Keppra 500 BID. He received a loading dose in ER and transferred to Telemetry. Since admission he has not had any seizures any more. Allergies: Coded Allergies: No Known Allergies (Unverified , 08/05/14) Medication History Scheduled Cephalexin* (Keflex*), 500 MG ORAL EVERY 6 HOURS Levetiracetam (Keppra), 500 MG ORAL EVERY 12 HOURS Levetiracetam (Keppra), 0 ORAL EVERY 12 HOURS, (Reported) Scheduled PRN Acetaminophen (Tylenol), 650 MG ORAL Q6H PRN for Prn Pain/Headache/Temp > 101 Miscellaneous Medications Unable to Obtain Medications (Unable To Obtain Meds), (Reported) Unable to Obtain Medications (Unable To Obtain Meds), (Reported) Patient History Healthcare decision maker PT [facility] [place] [phone] Resuscitation status Full Code Advanced Directive on File No Past Medical/Surgical History Past Medical/Surgical History: (1) Seizure disorder (2) Cocaine abuse (3) Uncontrolled seizures Review of Systems All Other Systems: negative except mentioned in HPI Physical Exam General Appearance: WD/WN, no apparent distress Lines, tubes and drains: peripheral HEENT: normocephalic, atraumatic Neck: non-tender, normal alignment Respiratory/Chest: chest wall non-tender, lungs clear Breasts: no masses Cardiovascular/Chest: normal peripheral pulses Abdomen: normal bowel sounds Genitourinary/Rectal: normal prostate exam Skin Exam: normal pigmentation Last 24 Hour Vital Signs Date Time Temp Pulse Resp B/P (MAP) Pulse Ox O2 Delivery O2 Flow Rate FiO2 08/23/18 09:00 Room Air Room Air 08/23/18 08:31 97.8 70 20 120/74 100 Room Air 08/23/18 06:37 97.5 81 19 110/67 98 Room Air 08/23/18 05:57 98.1 08/23/18 04:10 98.1 78 18 119/75 100 Room Air 08/23/18 02:49 101 18 Room Air 08/23/18 02:49 98.2 86 17 138/86 99 Room Air 08/23/18 02:24 98.2 101 18 158/110 99 Room Air Intake and Output 08/22/18 08/23/18 19:00 07:00 Intake Total 1115 ml Balance 1115 ml Intake IV Total 1115 ml Laboratory Tests Test 08/23/18 02:40 White Blood Count 7.4 K/UL (4.8-10.8) Red Blood Count 5.33 M/UL (4.70-6.10) Hemoglobin 14.3 G/DL (14.2-18.0) Hematocrit 44.9 % (42.0-52.0) Mean Corpuscular Volume 84 FL (80-99) Mean Corpuscular Hemoglobin 26.9 PG (27.0-31.0) L Mean Corpuscular Hemoglobin Concent 31.9 G/DL (32.0-36.0) L Red Cell Distribution Width 15.2 % (11.6-14.8) H Platelet Count 251 K/UL (150-450) Mean Platelet Volume 6.9 FL (6.5-10.1) Neutrophils (%) (Auto) 49.5 % (45.0-75.0) Lymphocytes (%) (Auto) 42.1 % (20.0-45.0) Monocytes (%) (Auto) 5.4 % (1.0-10.0) Eosinophils (%) (Auto) 1.4 % (0.0-3.0) Basophils (%) (Auto) 1.6 % (0.0-2.0) Urine Color Pale yellow Urine Appearance Clear Urine pH 5 (4.5-8.0) Urine Specific [place] 1.025 (1.005-1.035) Urine Protein 1+ (NEGATIVE) H Urine Glucose (UA) Negative (NEGATIVE) Urine Ketones 1+ (NEGATIVE) H Urine Blood 1+ (NEGATIVE) H Urine Nitrite Negative (NEGATIVE) Urine Bilirubin Negative (NEGATIVE) Urine Urobilinogen Normal MG/DL (0.0-1.0) Urine Leukocyte Esterase Negative (NEGATIVE) Urine RBC 0-2 /HPF (0 - 0) H Urine WBC 0 /HPF (0 - 0) Urine Squamous Epithelial Cells None /LPF (NONE/OCC) Urine Bacteria None /HPF (NONE) Sodium Level 141 MMOL/L (136-145) Potassium Level 4.3 MMOL/L (3.5-5.1) Chloride Level 104 MMOL/L (98-107) Carbon Dioxide Level 23 MMOL/L (21-32) Anion Gap 14 mmol/L (5-15) Blood Urea Nitrogen 9 mg/dL (7-18) Creatinine 1.1 MG/DL (0.55-1.30) Estimat Glomerular Filtration Rate mL/min (>60) Glucose Level 98 MG/DL (74-106) Calcium Level 9.3 MG/DL (8.5-10.1) Total Bilirubin 0.1 MG/DL (0.2-1.0) L Aspartate Amino Transf (AST/SGOT) 28 U/L (15-37) Alanine Aminotransferase (ALT/SGPT) 42 U/L (12-78) Alkaline Phosphatase 131 U/L (46-116) H Total Creatine Kinase 282 U/L (26-140) H Total Protein 7.7 G/DL (6.4-8.2) Albumin 3.8 G/DL (3.4-5.0) Globulin 3.9 g/dL Albumin/Globulin Ratio 1.0 (1.0-2.7) Urine Opiates Screen Negative (NEGATIVE) Urine Barbiturates Screen Negative (NEGATIVE) Phencyclidine (PCP) Screen Negative (NEGATIVE) Urine Amphetamines Screen Negative (NEGATIVE) Urine Benzodiazepines Screen Negative (NEGATIVE) Urine Cocaine Screen Positive (NEGATIVE) H Urine Marijuana (THC) Screen Positive (NEGATIVE) H Microbiology Date/Time Source Procedure Growth Status 08/23/18 02:40 Rectum Received Height (Feet): 6 Height (Inches): 1.00 Weight (Pounds): 180 Medications Current Medications Medications (Trade) Dose Ordered Sig/Joe Route PRN Reason Start Time Stop Time Status Last Admin Dose Admin Acetaminophen (Tylenol) 650 mg Q4H PRN ORAL fever 08/23/18 08:15 09/22/18 08:14 08/23/18 09:51 Al Hydroxide/Mg Hydroxide (Mylanta II) 30 ml Q6H PRN ORAL dyspepsia 08/23/18 08:15 09/22/18 08:14 Dextrose (Dextrose 50%) 25 ml Q30M PRN IV Hypoglycemia 08/23/18 08:15 09/22/18 08:05 Dextrose (Dextrose 50%) 50 ml Q30M PRN IV hypoglycemia 08/23/18 08:15 09/22/18 08:14 Heparin Sodium (Porcine) (Heparin 5000 units/ml) 5,000 units EVERY 12 HOURS SUBQ 08/23/18 09:00 09/22/18 08:59 08/23/18 09:43 Levetiracetam (Keppra) 1,000 mg EVERY 12 HOURS ORAL 08/23/18 09:00 09/22/18 08:59 08/23/18 09:43 Lorazepam (Ativan 2mg/ml 1ml) 2 mg Q1H PRN IV seizures 08/23/18 08:15 08/30/18 08:14 Morphine Sulfate (Morphine Sulfate) 1 mg Q4H PRN IVP For Pain 08/23/18 08:15 08/30/18 08:14 Ondansetron HCl (Zofran) 4 mg Q6H PRN IVP Nausea & Vomiting 08/23/18 08:15 09/22/18 08:14 Polyethylene Glycol (Miralax) 17 gm HSPRN PRN ORAL Constipation 08/23/18 08:15 09/22/18 08:14 Zolpidem Tartrate (Ambien) 5 mg HSPRN PRN ORAL Insomnia 08/23/18 08:15 08/30/18 08:14 Assessment/Plan Problem List: (1) Uncontrolled seizures ICD Codes: R56.9 - Unspecified convulsions SNOMED: 28344089 (2) Diabetes mellitus ICD Codes: E11.9 - Type 2 diabetes mellitus without complications SNOMED: 93191406 Assessment/Plan: pt is loaded with Keppra already seizures are most likely secondary to Cocaine and non-complaint. Melanie Arredondo MD Aug 23, 2018 10:56
[2018-08-23] MEDS ORDERED: NovoLOG Insulin Flexpen SUBQ SCH (11:30)
[2018-08-23 12:00] VITALS: BP 118/86
--- NOTE | 2018-08-23 12:11 | Consultation ---
History of Present Illness General Chief Complaint: Seizure Present Illness Allergies: Coded Allergies: No Known Allergies (Unverified , 08/05/14) Medication History Scheduled Cephalexin* (Keflex*), 500 MG ORAL EVERY 6 HOURS Levetiracetam (Keppra), 500 MG ORAL EVERY 12 HOURS Levetiracetam (Keppra), 0 ORAL EVERY 12 HOURS, (Reported) Scheduled PRN Acetaminophen (Tylenol), 650 MG ORAL Q6H PRN for Prn Pain/Headache/Temp > 101 Miscellaneous Medications Unable to Obtain Medications (Unable To Obtain Meds), (Reported) Unable to Obtain Medications (Unable To Obtain Meds), (Reported) Patient History Healthcare decision maker PT [facility] [place] [phone] Resuscitation status Full Code Advanced Directive on File No Physical Exam Last 24 Hour Vital Signs Date Time Temp Pulse Resp B/P (MAP) Pulse Ox O2 Delivery O2 Flow Rate FiO2 08/23/18 12:00 98.6 87 18 118/86 (97) 98 08/23/18 09:00 Room Air Room Air 08/23/18 09:00 Room Air Room Air 08/23/18 08:50 98.6 72 18 128/67 (87) 100 08/23/18 08:31 97.8 70 20 120/74 100 Room Air 08/23/18 06:37 97.5 81 19 110/67 98 Room Air 08/23/18 05:57 98.1 08/23/18 04:10 98.1 78 18 119/75 100 Room Air 08/23/18 02:49 101 18 Room Air 08/23/18 02:49 98.2 86 17 138/86 99 Room Air 08/23/18 02:24 98.2 101 18 158/110 99 Room Air Intake and Output 08/22/18 08/23/18 19:00 07:00 Intake Total 1115 ml Balance 1115 ml Intake IV Total 1115 ml Laboratory Tests Test 08/23/18 02:40 White Blood Count 7.4 K/UL (4.8-10.8) Red Blood Count 5.33 M/UL (4.70-6.10) Hemoglobin 14.3 G/DL (14.2-18.0) Hematocrit 44.9 % (42.0-52.0) Mean Corpuscular Volume 84 FL (80-99) Mean Corpuscular Hemoglobin 26.9 PG (27.0-31.0) L Mean Corpuscular Hemoglobin Concent 31.9 G/DL (32.0-36.0) L Red Cell Distribution Width 15.2 % (11.6-14.8) H Platelet Count 251 K/UL (150-450) Mean Platelet Volume 6.9 FL (6.5-10.1) Neutrophils (%) (Auto) 49.5 % (45.0-75.0) Lymphocytes (%) (Auto) 42.1 % (20.0-45.0) Monocytes (%) (Auto) 5.4 % (1.0-10.0) Eosinophils (%) (Auto) 1.4 % (0.0-3.0) Basophils (%) (Auto) 1.6 % (0.0-2.0) Urine Color Pale yellow Urine Appearance Clear Urine pH 5 (4.5-8.0) Urine Specific [place] 1.025 (1.005-1.035) Urine Protein 1+ (NEGATIVE) H Urine Glucose (UA) Negative (NEGATIVE) Urine Ketones 1+ (NEGATIVE) H Urine Blood 1+ (NEGATIVE) H Urine Nitrite Negative (NEGATIVE) Urine Bilirubin Negative (NEGATIVE) Urine Urobilinogen Normal MG/DL (0.0-1.0) Urine Leukocyte Esterase Negative (NEGATIVE) Urine RBC 0-2 /HPF (0 - 0) H Urine WBC 0 /HPF (0 - 0) Urine Squamous Epithelial Cells None /LPF (NONE/OCC) Urine Bacteria None /HPF (NONE) Sodium Level 141 MMOL/L (136-145) Potassium Level 4.3 MMOL/L (3.5-5.1) Chloride Level 104 MMOL/L (98-107) Carbon Dioxide Level 23 MMOL/L (21-32) Anion Gap 14 mmol/L (5-15) Blood Urea Nitrogen 9 mg/dL (7-18) Creatinine 1.1 MG/DL (0.55-1.30) Estimat Glomerular Filtration Rate mL/min (>60) Glucose Level 98 MG/DL (74-106) Calcium Level 9.3 MG/DL (8.5-10.1) Total Bilirubin 0.1 MG/DL (0.2-1.0) L Aspartate Amino Transf (AST/SGOT) 28 U/L (15-37) Alanine Aminotransferase (ALT/SGPT) 42 U/L (12-78) Alkaline Phosphatase 131 U/L (46-116) H Total Creatine Kinase 282 U/L (26-140) H Total Protein 7.7 G/DL (6.4-8.2) Albumin 3.8 G/DL (3.4-5.0) Globulin 3.9 g/dL Albumin/Globulin Ratio 1.0 (1.0-2.7) Urine Opiates Screen Negative (NEGATIVE) Urine Barbiturates Screen Negative (NEGATIVE) Phencyclidine (PCP) Screen Negative (NEGATIVE) Urine Amphetamines Screen Negative (NEGATIVE) Urine Benzodiazepines Screen Negative (NEGATIVE) Urine Cocaine Screen Positive (NEGATIVE) H Urine Marijuana (THC) Screen Positive (NEGATIVE) H Microbiology Date/Time Source Procedure Growth Status 08/23/18 02:40 Rectum Received Height (Feet): 6 Height (Inches): 1.00 Weight (Pounds): 180 Medications Current Medications Medications (Trade) Dose Ordered Sig/Joe Route PRN Reason Start Time Stop Time Status Last Admin Dose Admin Acetaminophen (Tylenol) 650 mg Q4H PRN ORAL fever 08/23/18 08:15 09/22/18 08:14 08/23/18 09:51 Al Hydroxide/Mg Hydroxide (Mylanta II) 30 ml Q6H PRN ORAL dyspepsia 08/23/18 08:15 09/22/18 08:14 Dextrose (Dextrose 50%) 25 ml Q30M PRN IV Hypoglycemia 08/23/18 08:15 09/22/18 08:05 Dextrose (Dextrose 50%) 50 ml Q30M PRN IV hypoglycemia 08/23/18 08:15 09/22/18 08:14 Heparin Sodium (Porcine) (Heparin 5000 units/ml) 5,000 units EVERY 12 HOURS SUBQ 08/23/18 09:00 09/22/18 08:59 08/23/18 09:43 Insulin Aspart (NovoLOG) BEFORE MEALS AND HS SUBQ 08/23/18 11:30 09/22/18 11:29 Levetiracetam (Keppra) 1,000 mg EVERY 12 HOURS ORAL 08/23/18 09:00 09/22/18 08:59 08/23/18 09:43 Lorazepam (Ativan 2mg/ml 1ml) 2 mg Q1H PRN IV seizures 08/23/18 08:15 08/30/18 08:14 Morphine Sulfate (Morphine Sulfate) 1 mg Q4H PRN IVP For Pain 08/23/18 08:15 08/30/18 08:14 Ondansetron HCl (Zofran) 4 mg Q6H PRN IVP Nausea & Vomiting 08/23/18 08:15 09/22/18 08:14 Polyethylene Glycol (Miralax) 17 gm HSPRN PRN ORAL Constipation 08/23/18 08:15 09/22/18 08:14 Zolpidem Tartrate (Ambien) 5 mg HSPRN PRN ORAL Insomnia 08/23/18 08:15 08/30/18 08:14 Shanice Dai N.P. Aug 23, 2018 12:11
--- NOTE | 2018-08-23 14:15 | Consultation ---
History of Present Illness General Date patient seen: Aug 23, 2018 Reason for Hospitalization: Seizure Present Illness HPI this is a very pleasant 33 year old male with known history of seizures who had a seizure at home and ground level fall resulting in left facial trauma. He hit his face on the table. ?LOC. no n/v/f/c/. noted tenderness and swelling. came to [facility] ED for evaluation. CT as below. surgery called to evaluate patient seen, chart reviewed, patient examined. pain improving. able to somewhat open eyes. no vision defects. mild headache. states he did not take his seizure meds for a few days because of personal drama in his life. has had seizures since age 17. began after [address] by resulting in hospitalization at [facility]. obtains outpatient care since Allergies: Coded Allergies: No Known Allergies (Unverified , 08/05/14) Medication History Scheduled Levetiracetam (Keppra), 500 MG ORAL EVERY 12 HOURS Levetiracetam (Keppra), 0 ORAL EVERY 12 HOURS, (Reported) Miscellaneous Medications Unable to Obtain Medications (Unable To Obtain Meds), (Reported) Unable to Obtain Medications (Unable To Obtain Meds), (Reported) Discontinued Medications Acetaminophen (Tylenol), 650 MG ORAL Q6H PRN for Prn Pain/Headache/Temp > 101 Discontinued Reason: discontinued med Cephalexin* (Keflex*), 500 MG ORAL EVERY 6 HOURS Discontinued Reason: MD discontinued med Patient History History Provided By: Patient, Medical Record, PMD Healthcare decision maker PT -RJ SMILEY [phone] Resuscitation status Full Code Advanced Directive on File No Past Medical/Surgical History Past Medical/Surgical History: (1) Muscle strain (2) Costochondritis (3) Muscle strain (4) Status epilepticus (5) Metabolic acidosis (6) Contusion, eye, left (7) Traumatic closed nondisplaced fracture of orbit (8) Cocaine abuse (9) Seizure (10) Epileptic seizure, generalized (11) Seizure disorder (12) Uncontrolled seizures (13) Diabetes mellitus Review of Systems Review of Symptoms General ROS: no weight loss or fever Psychological ROS: no depression or mood changes, no memory loss Ophthalmic ROS: no visual changes or eye irritation ENT ROS: no nasal congestion, hearing loss, dizziness Allergy and Immunology ROS: no allergic symptoms or urticaria Hematological and Lymphatic ROS: no swollen glands, unusual bleeding or bruising Endocrine ROS: no polyuria, polydipsia, weight changes, temperature intolerance Respiratory ROS: no cough, shortness of breath, or wheezing Cardiovascular ROS: no chest pain or dyspnea on exertion Gastrointestinal ROS: denies abdominal pain, no bright red blood in stool. Musculoskeletal ROS: no myalgias or arthralgias Neurological ROS: no TIA or stroke symptoms Dermatological ROS: no new or changing skin lesions, rashes or pruritis Physical Exam Physical Exam General appearance: alert, cooperative, no distress, appears stated age Head: Normocephalic, without obvious abnormality, left eye trauma Eyes: conjunctivae/corneas clear. PERRL, EOM's intact. Fundi benign left eye with edema and tenderness. Throat: Lips, mucosa, and tongue normal. Teeth and gums normal Neck: supple, symmetrical, trachea midline, no adenopathy, thyroid: not enlarged, symmetric, no tenderness/mass/nodules, no carotid bruit and no JVD Lungs: clear to auscultation bilaterally Heart: regular rate and rhythm, S1, S2 normal, no murmur, click, rub or gallop Abdomen: soft, non-tender. Bowel sounds normal. No masses, no organomegaly Extremities: extremities normal, atraumatic, no cyanosis or edema Pulses: 2+ and symmetric Skin: Skin color, texture, turgor normal. No rashes or lesions Neurologic: Grossly normal Last 24 Hour Vital Signs Date Time Temp Pulse Resp B/P (MAP) Pulse Ox O2 Delivery O2 Flow Rate FiO2 08/23/18 12:00 98.6 87 18 118/86 (97) 98 08/23/18 09:00 Room Air Room Air 08/23/18 09:00 Room Air Room Air 08/23/18 08:50 98.6 72 18 128/67 (87) 100 08/23/18 08:31 97.8 70 20 120/74 100 Room Air 08/23/18 06:37 97.5 81 19 110/67 98 Room Air 08/23/18 05:57 98.1 08/23/18 04:10 98.1 78 18 119/75 100 Room Air 08/23/18 02:49 101 18 Room Air 08/23/18 02:49 98.2 86 17 138/86 99 Room Air 08/23/18 02:24 98.2 101 18 158/110 99 Room Air Intake and Output 08/22/18 08/23/18 19:00 07:00 Intake Total 1115 ml Balance 1115 ml Intake IV Total 1115 ml Laboratory Tests Test 08/23/18 02:40 08/23/18 04:30 White Blood Count 7.4 K/UL (4.8-10.8) Red Blood Count 5.33 M/UL (4.70-6.10) Hemoglobin 14.3 G/DL (14.2-18.0) Hematocrit 44.9 % (42.0-52.0) Mean Corpuscular Volume 84 FL (80-99) Mean Corpuscular Hemoglobin 26.9 PG (27.0-31.0) L Mean Corpuscular Hemoglobin Concent 31.9 G/DL (32.0-36.0) L Red Cell Distribution Width 15.2 % (11.6-14.8) H Platelet Count 251 K/UL (150-450) Mean Platelet Volume 6.9 FL (6.5-10.1) Neutrophils (%) (Auto) 49.5 % (45.0-75.0) Lymphocytes (%) (Auto) 42.1 % (20.0-45.0) Monocytes (%) (Auto) 5.4 % (1.0-10.0) Eosinophils (%) (Auto) 1.4 % (0.0-3.0) Basophils (%) (Auto) 1.6 % (0.0-2.0) Urine Color Pale yellow Urine Appearance Clear Urine pH 5 (4.5-8.0) Urine Specific [place] 1.025 (1.005-1.035) Urine Protein 1+ (NEGATIVE) H Urine Glucose (UA) Negative (NEGATIVE) Urine Ketones 1+ (NEGATIVE) H Urine Blood 1+ (NEGATIVE) H Urine Nitrite Negative (NEGATIVE) Urine Bilirubin Negative (NEGATIVE) Urine Urobilinogen Normal MG/DL (0.0-1.0) Urine Leukocyte Esterase Negative (NEGATIVE) Urine RBC 0-2 /HPF (0 - 0) H Urine WBC 0 /HPF (0 - 0) Urine Squamous Epithelial Cells None /LPF (NONE/OCC) Urine Bacteria None /HPF (NONE) Sodium Level 141 MMOL/L (136-145) Potassium Level 4.3 MMOL/L (3.5-5.1) Chloride Level 104 MMOL/L (98-107) Carbon Dioxide Level 23 MMOL/L (21-32) Anion Gap 14 mmol/L (5-15) Blood Urea Nitrogen 9 mg/dL (7-18) Creatinine 1.1 MG/DL (0.55-1.30) Estimat Glomerular Filtration Rate mL/min (>60) Glucose Level 98 MG/DL (74-106) Calcium Level 9.3 MG/DL (8.5-10.1) Total Bilirubin 0.1 MG/DL (0.2-1.0) L Aspartate Amino Transf (AST/SGOT) 28 U/L (15-37) Alanine Aminotransferase (ALT/SGPT) 42 U/L (12-78) Alkaline Phosphatase 131 U/L (46-116) H Total Creatine Kinase 282 U/L (26-140) H Total Protein 7.7 G/DL (6.4-8.2) Albumin 3.8 G/DL (3.4-5.0) Globulin 3.9 g/dL Albumin/Globulin Ratio 1.0 (1.0-2.7) Urine Opiates Screen Negative (NEGATIVE) Urine Barbiturates Screen Negative (NEGATIVE) Phencyclidine (PCP) Screen Negative (NEGATIVE) Urine Amphetamines Screen Negative (NEGATIVE) Urine Benzodiazepines Screen Negative (NEGATIVE) Urine Cocaine Screen Positive (NEGATIVE) H Urine Marijuana (THC) Screen Positive (NEGATIVE) H Levetiracetam (Keppra) Level Pending Microbiology Date/Time Source Procedure Growth Status 08/23/18 02:40 Rectum Received Height (Feet): 6 Height (Inches): 1.00 Weight (Pounds): 180 Medications Current Medications Medications (Trade) Dose Ordered Sig/Joe Route PRN Reason Start Time Stop Time Status Last Admin Dose Admin Acetaminophen (Tylenol) 650 mg Q4H PRN ORAL fever 08/23/18 08:15 09/22/18 08:14 08/23/18 09:51 Al Hydroxide/Mg Hydroxide (Mylanta II) 30 ml Q6H PRN ORAL dyspepsia 08/23/18 08:15 09/22/18 08:14 Dextrose (Dextrose 50%) 25 ml Q30M PRN IV Hypoglycemia 08/23/18 08:15 09/22/18 08:05 Dextrose (Dextrose 50%) 50 ml Q30M PRN IV hypoglycemia 08/23/18 08:15 09/22/18 08:14 Heparin Sodium (Porcine) (Heparin 5000 units/ml) 5,000 units EVERY 12 HOURS SUBQ 08/23/18 09:00 09/22/18 08:59 08/23/18 09:43 Insulin Aspart (NovoLOG) BEFORE MEALS AND HS SUBQ 08/23/18 11:30 09/22/18 11:29 Levetiracetam (Keppra) 1,000 mg EVERY 12 HOURS ORAL 08/23/18 09:00 09/22/18 08:59 08/23/18 09:43 Lorazepam (Ativan 2mg/ml 1ml) 2 mg Q1H PRN IV seizures 08/23/18 08:15 08/30/18 08:14 Morphine Sulfate (Morphine Sulfate) 1 mg Q4H PRN IVP For Pain 08/23/18 08:15 08/30/18 08:14 Ondansetron HCl (Zofran) 4 mg Q6H PRN IVP Nausea & Vomiting 08/23/18 08:15 09/22/18 08:14 Polyethylene Glycol (Miralax) 17 gm HSPRN PRN ORAL Constipation 08/23/18 08:15 09/22/18 08:14 Zolpidem Tartrate (Ambien) 5 mg HSPRN PRN ORAL Insomnia 08/23/18 08:15 08/30/18 08:14 Assessment/Plan Problem List: (1) Contusion, eye, left Assessment & Plan: mild edema and hematoma of left orbit s/p fall with resulting trauma cornea intact and no vision defects CT noted tender but stable. ice packs prn will monitor with clinical exam ICD Codes: S05.12XA - Contusion of eyeball and orbital tissues, left eye, initial encounter SNOMED: 856690600 Qualifiers: Qualified Codes: S05.12XA - Contusion of eyeball and orbital tissues, left eye, initial encounter (2) Traumatic closed nondisplaced fracture of orbit Assessment & Plan: CT with Acute fracture of the medial wall of the left orbit with opacification of the ethmoid sinus on the left side and small amount of air that has breached into the left orbit. Minimal proptosis. No obvious retrobulbar hemorrhage. Moderate periorbital soft tissue swelling and left frontal scalp hematoma/contusion. no acute surgical intervention planned will consult with facial ENT surgeon. will follow with recs thank you ICD Codes: S02.80XA - Fracture of other specified skull and facial bones, unspecified side, initial encounter for closed fracture SNOMED: 40894003, 486342522 Qualifiers: Qualified Codes: S02.80XA - Fracture of other specified skull and facial bones, unspecified side, initial encounter for closed fracture (3) Cocaine abuse ICD Codes: F14.10 - Cocaine abuse, uncomplicated SNOMED: 67741671 (4) Seizure ICD Codes: R56.9 - Unspecified convulsions SNOMED: 63002329 (5) Seizure disorder ICD Codes: G40.909 - Epilepsy, unspecified, not intractable, without status epilepticus SNOMED: 797053387 (6) Uncontrolled seizures ICD Codes: R56.9 - Unspecified convulsions SNOMED: 11580821 (7) Diabetes mellitus ICD Codes: E11.9 - Type 2 diabetes mellitus without complications SNOMED: 05502322 (8) Muscle strain ICD Codes: T14.8 - Other injury of unspecified body region SNOMED: 27338062 (9) Muscle strain ICD Codes: T14.8 - Other injury of unspecified body region SNOMED: 81074336 (10) Costochondritis ICD Codes: M94.0 - Chondrocostal junction syndrome [[place]ietze] SNOMED: 44292647 (11) Metabolic acidosis ICD Codes: E87.2 - Acidosis SNOMED: 86860073 (12) Status epilepticus ICD Codes: G40.901 - Epilepsy, unspecified, not intractable, with status epilepticus SNOMED: 047098098 (13) Epileptic seizure, generalized ICD Codes: G40.309 - Generalized idiopathic epilepsy and epileptic syndromes, not intractable, without status epilepticus SNOMED: 86056625 John Christianson Aug 23, 2018 14:15
[2018-08-23] MEDS ORDERED: KEPPRA500 MG ORAL (14:25)
--- NOTE | 2018-08-23 15:11 | NUR ---
CASE MANAGEMENT:REVIEW 33 YR OLD MALE CHERRIE FROM HOME @ 0223 ON 08/23/18 CC: SEIZURE SI: SEIZURE. LT ORBITAL FRACTURE. COCAINE ABUSE 98.2 101 18 158/110 99% ON RA TCK+282 URINE(+) COCAINE AND THC IS: IV KEPPRA IV ATIVAN 1L NS BOLUS CT MAXILLOFACIAL : TO TELEMETRY IS: NEURO CHECKS Q4HRS SEIZURE PRECAUTIONS
--- NOTE | 2018-08-23 15:28 | NUR ---
NURSE NOTES: Communicated with the patient regarding the discharged. The patient's brother, Parish, was notified and will take him back home via private vehicle. Parish's phone number is [phone]. Will provide discharge instruction and teaching will be provided. The patient is stable without acute distress or shortness of breath.
--- NOTE | 2018-08-23 16:05 | NUR ---
NURSE NOTES: The patient's brother, Brain, came to pick the patient up with private vehicle. The patient's belongings checked at the bedside and received signature. Removed him from telemonitor and IV. Discharge instruction and teaching was provided at the bedside. The patient's safety checked and safely discharged the patient. The patient discharged with stable condition.
--- NOTE | 2018-08-23 21:54 | Cardiology Report ---
APPROVED REPORT EKG Measurement Heart [id number] Normal sinus rhythm Nonspecific ST abnormality Abnormal ECG
--- NOTE | 2018-08-23 23:30 | History and Physical Report ---
DATE OF ADMISSION: 08/23/2018 TIME SEEN: At 2 p.m. CONSULTANTS: 1. Karen Levin M.D. 2. Prosper Ruiz M.D. CHIEF COMPLAINT: Seizure, fall and fracture of left orbital. BRIEF HISTORY: This is a 33-year-old male with history of seizure, apparently had not been taking his medications on and off, the last time was yesterday and prior to that three days ago, then one week ago, and had seizure. The patient fell and struck his left face and sustained a left orbital fracture. He had seen in the ER, diagnosed with above, admitted to telemetry for further care. Currently, calm in bed. No complaint. Assessed with slight headache. No chest pain. No shortness of breath. No nausea, vomiting, or diarrhea. PAST MEDICAL HISTORY: Seizure, possible diabetes. PAST SURGICAL HISTORY: None. ALLERGIES: Denies. MEDICATION: Include NovoLog, Keppra, heparin, Mylanta, Ambien, Ativan, Zofran, MiraLAX, Tylenol. SOCIAL HISTORY: Positive smoke, positive alcohol, positive marijuana use. PHYSICAL EXAMINATION: GENERAL: Calm in bed, oriented x3, in no acute distress. VITAL SIGNS: Temperature is 98 degrees, pulse 87, respirations 18, and blood pressure 118/86. CARDIOVASCULAR: No murmurs. LUNGS: Distant and clear. ABDOMEN: Bowel sounds positive. Nontender. Nondistended. EXTREMITIES: No cyanosis, clubbing, or edema. Left periorbital swelling with eyelids almost closed. NEUROLOGIC: The patient moves all extremities, slightly weak. LABORATORY AND DIAGNOSTIC DATA: Labs at this time show CBC is normal. BMP show alkaline phosphatase 131, CK is 282, otherwise BMP is normal. Urinalysis shows 1+ ketone, 1+ protein. Urine toxicology positive for cocaine and marijuana. ASSESSMENT: 1. Seizure. 2. Fractured left orbital. 3. Diabetes possibly. PLAN: 1. Neurology followup. 2. Psych evaluation. 3. We will continue to follow the patient medically. 4. Blood pressure control. 5. CBC and BMP in the morning. 6. Pain control. Pipo Resendiz D.O. DR: GALEN JOB#: [id number] CC:
--- NOTE | 2018-08-27 13:26 | Discharge Summary ---
Discharge Summary Discharge Summary _ , ,On board as on board as DATE OF ADMISSION: 08/23/2018 DATE OF DISCHARGE: 08/23/2018 DISCHARGDr. WongED BY: Dr Resendiz REASON FOR ADMISSION: [] 83 years old male with past medical history of diabetes mellitus, seizure disorder, history of alcohol abuse presented to emergency department after witnessed seizure episode. Patient hit his left eye on a bedside table. Accu- Chek was normal in the field. Per phone circuit operator patient was oriented after the event. Patient was taking Keppra at home. Noted left eye edema patient last seizure was on 416 and patient required transfer to [facility] due to insurance for recurrent seizure.. Patient has also history of violent postictal occurrences. Upon evaluation laboratory work-up revealed no leukocytosis stable hemoglobin hematocrit. Stable coagulation profile. Urinalysis revealed +1 protein but no evidence of urinary tract infection. Stable renal parameters and electrolytes glucose 98. Stable LFT Albumin 3.8 urine toxicology screen was positive for cocaine and marijuana. EKG revealed normal sinus rhythm no acute ischemic changes. CT maxillofacial CT done in emergency department revealed acute fracture of the medial wall of the left orbit with opacification of the ethmoid sinus on the left side and small amount of air that had breached into the left orbit. Minimal proptosis. No obvious retrobulbar hemorrhage. Moderate periorbital soft tissue swelling and left frontal scalp hematoma/contusion. CK elevated alkaline phosphatase elevated patient had another seizure while in emergency department patient received Versed and Keppra patient was minimally postictal and follow-up was able to follow commands patient subsequently was transferred to telemetry floor for further management. Patient CONSULTANTS: pen ruler operator neurologist Dr. Ruiz pulmonary Dr. Arnlufo JUSTIN specialist GI specialist dredge pipe installer revival clerk/oncologist surgery Dr. Christianson psychiatrist HOSPITAL COURSE: [] Patient admitted to telemetry floor for observation patient was loaded with Keppra already in the emergency department seizure precaution maintained. According to operations support analyst seizure were most likely secondary to cocaine abuse and noncompliance. General surgeon seen and evaluated patient since unable to get a pulmonology consult at that time. Patient noted to have mild edema and hematoma of left orbit but no vision defects cornea was intact. Surgeon closely review imaging and recommended ice pack as needed pain management follow-up with a clinical exam and follow-up with air shovel operator as outpatient no acute surgical intervention were necessarily at this time. Consult with a facial or ENT ENT specialist. That sugar was managed with sliding scale of insulin. DVT prophylaxis provided. Supportive treatment provided pain management addressed anxiolytic were on board as needed bowel regimen instituted patient continued on Keppra Patient counseled on abstinence from illicit street drugs patient was stable for discharge home patient was recommended follow-up with the air shovel operator or facial ENT specialist within a week. FINAL DIAGNOSES: 1. [] Traumatic closed nondisplaced fracture of the left orbit Contusion left eye Uncontrolled seizure in the setting of seizure disorder possible noncompliance Diabetes mellitus Cocaine abuse DISCHARGE MEDICATIONS: See Medication Reconciliation list. DISCHARGE INSTRUCTIONS: [] Patient was discharged home . Follow up with primary care provider in one week. I have been assigned to dictate discharge summary for this account. I was not involved in the patient's management. Andressa aFgan NP Aug 27, 2018 13:26
== END 2018-08-23 16:10 | disposition home or self-care (01) | DRG 115 ==
LOC: EDUNIT# 02:23 → EDBD 02:23 → EMR 02:41 → EDBEDREQ 06:32 → 2E 06:56 → OBSVTOIN 06:56 → UNDOADMOB 06:56 → INTOOBSV 06:56 → EDBEDREQ 07:03 → OBSVTOIN 07:47 → INTOOBSV 07:47 → UNDODISOB 16:10
DX: S02.82XA Fracture of other specified skull and facial bones, left side, initial encounter for closed fracture (principal); S00.03XA Contusion of scalp, initial encounter; W19.XXXA Unspecified fall, initial encounter; W22.8XXA Striking against or struck by other objects, initial encounter; E11.9 Type 2 diabetes mellitus without complications; Z79.4 Long term (current) use of insulin; G40.909 Epilepsy, unspecified, not intractable, without status epilepticus; F14.10 Cocaine abuse, uncomplicated; Z91.19 Patient's noncompliance with other medical treatment and regimen
CPT/HCPCS: 36415; 70486; 80053; 80299; 80307; 81003; 82550; 82962; 85025; 87081; 93005; 96361; 96372; 96374; 96375; 99285; J1815; J2250

== ENCOUNTER 2018-10-15 08:31 | Inpatient (IN) | payer OTHER ==
[~2018-10-15] VITALS: Ht 185.4 cm; Wt 93.0 kg
[~2018-10-15 08:31] MED LIST changes: +TYLENOL325 MG ORAL
[2018-10-15] MEDS ORDERED: Acetaminophen 500mg (ES) tab ORAL ONE (08:45)
[2018-10-15] MEDS ORDERED: levETIRAcetam 500 MG in D5W 110 ML IV ONE (08:45)
[2018-10-15] MEDS ORDERED: KEPPRA500 M4 ORAL (08:57)
[2018-10-15] MEDS ORDERED: FOLIC ACID1 MG ORAL (08:57)
[2018-10-15 09:00] VITALS: BP 142/90
--- NOTE | 2018-10-15 09:09 | Emergency Room Report ---
History of Present Illness General Chief Complaint: Seizure Source: Patient, EMS Present Illness HPI This patient is brought in by EMS for seizure. Patient has a history of seizure disorder. EMS were called by the patient's parents when he had a tonic- clonic seizure just prior to arrival. Per EMS, he is noncompliant with his medications regularly and they often transport this patient to the emergency department for the same. The patient himself complains of headache. He admits that he has not been taking his Keppra. He does not have a good reason. He denies trauma or recent illness. He denies fever or chills. He has no other complaints. Allergies: Coded Allergies: No Known Allergies (Unverified , 08/05/14) Patient History Past Medical History: see triage record, DM, seizures, other - Drug abuse Social History: Reports: alcohol use, drug use Reviewed Nursing Documentation: PMH: Agreed; PSxH: Agreed Nursing Documentation-PMH Past Medical History: No History, Except For Hx Cardiac Problems: No Hx Diabetes: Yes Hx Cancer: No Hx Gastrointestinal Problems: No Hx Neurological Problems: Yes Hx Seizures: Yes Review of Systems All Other Systems: negative except mentioned in HPI Physical Exam Vital Signs Date Time Temp Pulse Resp B/P (MAP) Pulse Ox O2 Delivery O2 Flow Rate FiO2 10/15/18 08:24 85 16 142/90 (107) 100 Room Air Sp02 EP Interpretation: reviewed, normal General Appearance: no apparent distress, alert, GCS 15, non-toxic Head: normocephalic, atraumatic Eyes: bilateral eye normal inspection, bilateral eye PERRL ENT: hearing grossly normal, normal pharynx, no angioedema, normal voice Neck: full range of motion, supple/symm/no masses Respiratory: chest non-tender, lungs clear, normal breath sounds, no respiratory distress, no retraction, no accessory muscle use, speaking full sentences Cardiovascular #1: regular rate, rhythm, no edema Gastrointestinal: normal bowel sounds, non tender, soft, non-distended, no guarding, no rebound Rectal: deferred Musculoskeletal: back normal, gait/station normal, normal range of motion, non- tender Neurologic: alert, oriented x3, responsive, motor strength/tone normal, sensory intact, speech normal Psychiatric: judgement/insight normal, memory normal, mood/affect normal, no suicidal/homicidal ideation Skin: normal color, no rash, warm/dry, well hydrated Medical Decision Making Diagnostic Impression: Primary Impression: Seizure disorder Additional Impressions: Nonadherence to medication Polysubstance abuse ER Course This patient has a history of seizure disorder and medication noncompliance with his antiseizure regimen. He is well-known to [facility]. I had planned on doing a work-up on this patient and giving him his IV Keppra, however, he declined. He is alert and oriented and appropriate. He is repeatedly calling his family that he calls "his people." He states that he will not undergo any further testing. He will await the arrival of his family to go home. However, the patient then had a seizure and was given Ativan IV. He underwent blood draws and then had another seizure. I feel that this patient needs admission to the hospital for uncontrolled seizures. I suspect this is multifactorial to include polysubstance abuse and medication noncompliance. The patient's insurance company requested his transfer. Laboratory Tests Test 10/15/18 09:00 10/15/18 10:00 Urine Color Pale yellow Urine Appearance Clear Urine pH 5 (4.5-8.0) Urine Specific [place] 1.025 (1.005-1.035) Urine Protein 3+ (NEGATIVE) H Urine Glucose (UA) Negative (NEGATIVE) Urine Ketones Negative (NEGATIVE) Urine Blood 2+ (NEGATIVE) H Urine Nitrite Negative (NEGATIVE) Urine Bilirubin Negative (NEGATIVE) Urine Urobilinogen Normal MG/DL (0.0-1.0) Urine Leukocyte Esterase 1+ (NEGATIVE) H Urine RBC 2-4 /HPF (0 - 0) H Urine WBC 5-10 /HPF (0 - 0) H Urine Squamous Epithelial Cells Few /LPF (NONE/OCC) Urine Bacteria Few /HPF (NONE) Urine Mucus Few /LPF (NONE/OCC) H Urine Opiates Screen Negative (NEGATIVE) Urine Barbiturates Screen Negative (NEGATIVE) Phencyclidine (PCP) Screen Negative (NEGATIVE) Urine Amphetamines Screen Negative (NEGATIVE) Urine Benzodiazepines Screen Negative (NEGATIVE) Urine Cocaine Screen Positive (NEGATIVE) H Urine Marijuana (THC) Screen Positive (NEGATIVE) H White Blood Count 14.5 K/UL (4.8-10.8) H Red Blood Count 5.78 M/UL (4.70-6.10) Hemoglobin 15.2 G/DL (14.2-18.0) Hematocrit 49.0 % (42.0-52.0) Mean Corpuscular Volume 85 FL (80-99) Mean Corpuscular Hemoglobin 26.3 PG (27.0-31.0) L Mean Corpuscular Hemoglobin Concent 31.0 G/DL (32.0-36.0) L Red Cell Distribution Width 14.6 % (11.6-14.8) Platelet Count 275 K/UL (150-450) Mean Platelet Volume 6.7 FL (6.5-10.1) Neutrophils (%) (Auto) 59.6 % (45.0-75.0) Lymphocytes (%) (Auto) 30.0 % (20.0-45.0) Monocytes (%) (Auto) 9.1 % (1.0-10.0) Eosinophils (%) (Auto) 0.2 % (0.0-3.0) Basophils (%) (Auto) 1.2 % (0.0-2.0) Sodium Level 143 MMOL/L (136-145) Potassium Level 3.8 MMOL/L (3.5-5.1) Chloride Level 105 MMOL/L (98-107) Carbon Dioxide Level 12 MMOL/L (21-32) L Anion Gap 26 mmol/L (5-15) H Blood Urea Nitrogen 8 mg/dL (7-18) Creatinine 1.3 MG/DL (0.55-1.30) Estimate Glomerular Filtration Rate > 60 mL/min (>60) Glucose Level 108 MG/DL (74-106) H Calcium Level 9.4 MG/DL (8.5-10.1) Total Bilirubin 0.2 MG/DL (0.2-1.0) Aspartate Amino Transferase (AST) 27 U/L (15-37) Alanine Aminotransferase (ALT) 24 U/L (12-78) Alkaline Phosphatase 154 U/L (46-116) H Total Protein 8.1 G/DL (6.4-8.2) Albumin 4.5 G/DL (3.4-5.0) Globulin 3.6 g/dL Albumin/Globulin Ratio 1.2 (1.0-2.7) Serum Alcohol < 3 mg/dL EKG Diagnostic Results Other Impression Patient refused EKG Rhythm Strip Diag. Results EP Interpretation: yes Rate: 90's Rhythm: NSR, no PVC's, no ectopy CT/MRI/US Diagnostic Results CT/MRI/US Diagnostic Results : Imaging Test Ordered: CT head: Patient refused. CT done one month ago. Last Vital Signs Date Time Temp Pulse Resp B/P (MAP) Pulse Ox O2 Delivery O2 Flow Rate FiO2 10/15/18 08:24 85 16 142/90 (107) 100 Room Air Disposition: XFER SHT-TRM HOSP Condition: Serious Referrals: [facility],REFERRING (PCP) Kelly Rodriguez DO Oct 15, 2018 09:09
[2018-10-15 09:27] LABS: APPEARANCE,URINE CLEAR; BILIRUBIN, URINE NEGATIVE (NEGATIVE); COLOR,URINE PALE YELLOW; GLUCOSE, URINE (UA) NEGATIVE (NEGATIVE); KETONES,URINE NEGATIVE (NEGATIVE); LEUKOCYTE ESTERASE ,URINE 1+ (NEGATIVE); NITRITE,URINE NEGATIVE (NEGATIVE); PH,URINE 5 (4.5-8.0); PROTEIN,URINE 3+ (NEGATIVE); UROBILINOGEN,URINE NORMAL MG/DL (0.0-1.0)
[2018-10-15] MEDS ORDERED: LORazepam Inj 2mg/ml 1ml ONE ×2 (09:56→15:27)
[2018-10-15] MEDS ORDERED: levETIRAcetam 500mg/NS100ml 100 ML IVPB ONE (10:00)
[2018-10-15] MEDS ORDERED: LORazepam Inj 2mg/ml 1ml IV ONE ×3 (10:00→17:00)
[2018-10-15 10:29] LABS: BASOPHILS % (AUTO) 1.2 % (0.0-2.0); EOSINOPHILS % (AUTO) 0.2 % (0.0-3.0); HEMOGLOBIN 15.2 G/DL (14.2-18.0); MEAN CORPUSCULAR VOLUME 85 FL (80-99); MONOCYTES % (AUTO) 9.1 % (1.0-10.0); NEUTROPHILS % (AUTO) 59.6 % (45.0-75.0); PLATELET COUNT 275 K/UL (150-450); RED BLOOD COUNT 5.78 M/UL (4.70-6.10); RED CELL DISTRIBUTION WIDTH 14.6 % (11.6-14.8); WHITE BLOOD COUNT 14.5 K/UL (4.8-10.8)
[2018-10-15 10:56] LABS: ANION GAP 26 mmol/L (5-15); BLOOD UREA NITROGEN 8 mg/dL (7-18); CALCIUM 9.4 MG/DL (8.5-10.1); CARBON DIOXIDE 12 MMOL/L (21-32); CHLORIDE 105 MMOL/L (98-107); CREATININE 1.3 MG/DL (0.55-1.30); POTASSIUM 3.8 MMOL/L (3.5-5.1); SODIUM 143 MMOL/L (136-145)
[2018-10-15 11:00] LABS: ALANINE AMINOTRANSFERASE 24 U/L (12-78); ALBUMIN 4.5 G/DL (3.4-5.0); ALBUMIN/GLOBULIN RATIO 1.2 (1.0-2.7); ALKALINE PHOSPHATASE 154 U/L (46-116); ASPARTATE AMINO TRANSFERASE 27 U/L (15-37); BILIRUBIN,TOTAL 0.2 MG/DL (0.2-1.0)
[2018-10-15 11:56] VITALS: BP 121/86
[2018-10-15 13:31] VITALS: BP 126/76
[2018-10-15] MEDS ORDERED: cefTRIAXone 1 GM in NS 55 ML IVPB ONE (15:45)
[2018-10-15 16:52] VITALS: BP 120/75
[2018-10-15 17:30] VITALS: BP 131/80
[2018-10-15] MEDS ORDERED: Zolpidem 5mg tab ORAL PRN (18:45)
[2018-10-15] MEDS ORDERED: Miralax 17gm pkt ORAL PRN (18:45)
[2018-10-15] MEDS ORDERED: LORazepam Inj 2mg/ml 1ml IV PRN (18:45)
[2018-10-15] MEDS ORDERED: Morphine Sulfate 2mg/ml Inj(IV/IM USE ONLY) IVP PRN (18:45)
[2018-10-15 20:00] VITALS: BP 143/90
[2018-10-15] MEDS: Heparin 5000 units/ml inj SUBQ SCH (20:47)
--- NOTE | 2018-10-15 22:32 | Consultation ---
History of Present Illness General Date patient seen: Oct 15, 2018 Chief Complaint: Seizure Referring physician: Dr. Resendiz Present Illness HPI Jose Bobby is a 33 year old man with a known PMH of epilepsy and noncompliance with AEDs who was BIBA for episodes of generalized seizure. At the time of his arrival to [facility] ED, he was alert and complaining of headache. He further admitted to not taking his prescribed Keppra and could not provide further reason for his noncompliance. To further complicate this issue, this gentleman has tested positive for cocaine four times in 2019. Neurological consultation was requested for evaluation and management of this gentleman's seizure activity. Allergies: Coded Allergies: No Known Allergies (Unverified , 08/05/14) Medication History Scheduled Folic Acid* (Folic Acid*), 1 MG ORAL DAILY, (Reported) Levetiracetam (Keppra), 500 MG ORAL EVERY 12 HOURS Levetiracetam (Keppra), 1,000 MG ORAL EVERY 12 HOURS Levetiracetam (Keppra), Unknown Dose ORAL EVERY 12 HOURS, (Reported) Miscellaneous Medications Unable to Obtain Medications (Unable To Obtain Meds), (Reported) Unable to Obtain Medications (Unable To Obtain Meds), (Reported) Patient History Limited by: medical condition Healthcare decision maker Resuscitation status Full Code Advanced Directive on File No Physical Exam General Appearance: WD/WN, no apparent distress, lethargic, other - Able to be aroused, irritable and non cooperative with exam Lines, tubes and drains: peripheral HEENT: normocephalic, atraumatic, anicteric, mucous membranes moist, PERRL, EOMI, pharynx normal, supple, no JVD Neck: normal alignment, supple, normal inspection Respiratory/Chest: normal breath sounds, no respiratory distress, no accessory muscle use Cardiovascular/Chest: normal peripheral pulses Extremities: normal range of motion, non-tender, normal inspection, no calf tenderness, normal capillary refill, non-pitting, no edema, no cyanosis Skin Exam: normal pigmentation, warm/dry 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, no motor/sensory deficits, responsive, other - Not cooer Musculoskeletal: normal muscle bulk, no effusion Physical Exam Narrative Patient not cooperative with exam but LIND x 4 and ambulatory independently Last 24 Hour Vital Signs Date Time Temp Pulse Resp B/P (MAP) Pulse Ox O2 Delivery O2 Flow Rate FiO2 10/15/18 17:45 Room Air 10/15/18 17:30 98.9 74 18 131/80 (97) 100 10/15/18 17:11 98.0 95 18 120/75 99 Room Air 10/15/18 16:52 95 18 120/75 99 Room Air 10/15/18 13:31 101 18 126/76 98 Room Air 10/15/18 11:56 98.0 84 16 121/86 100 Room Air 10/15/18 09:00 85 16 Room Air 10/15/18 09:00 84 16 142/90 100 Room Air 10/15/18 08:24 85 16 142/90 (107) 100 Room Air Laboratory Tests Test 10/15/18 09:00 10/15/18 10:00 Urine Color Pale yellow Urine Appearance Clear Urine pH 5 (4.5-8.0) Urine Specific [place] 1.025 (1.005-1.035) Urine Protein 3+ (NEGATIVE) H Urine Glucose (UA) Negative (NEGATIVE) Urine Ketones Negative (NEGATIVE) Urine Blood 2+ (NEGATIVE) H Urine Nitrite Negative (NEGATIVE) Urine Bilirubin Negative (NEGATIVE) Urine Urobilinogen Normal MG/DL (0.0-1.0) Urine Leukocyte Esterase 1+ (NEGATIVE) H Urine RBC 2-4 /HPF (0 - 0) H Urine WBC 5-10 /HPF (0 - 0) H Urine Squamous Epithelial Cells Few /LPF (NONE/OCC) Urine Bacteria Few /HPF (NONE) Urine Mucus Few /LPF (NONE/OCC) H Urine Opiates Screen Negative (NEGATIVE) Urine Barbiturates Screen Negative (NEGATIVE) Phencyclidine (PCP) Screen Negative (NEGATIVE) Urine Amphetamines Screen Negative (NEGATIVE) Urine Benzodiazepines Screen Negative (NEGATIVE) Urine Cocaine Screen Positive (NEGATIVE) H Urine Marijuana (THC) Screen Positive (NEGATIVE) H White Blood Count 14.5 K/UL (4.8-10.8) H Red Blood Count 5.78 M/UL (4.70-6.10) Hemoglobin 15.2 G/DL (14.2-18.0) Hematocrit 49.0 % (42.0-52.0) Mean Corpuscular Volume 85 FL (80-99) Mean Corpuscular Hemoglobin 26.3 PG (27.0-31.0) L Mean Corpuscular Hemoglobin Concent 31.0 G/DL (32.0-36.0) L Red Cell Distribution Width 14.6 % (11.6-14.8) Platelet Count 275 K/UL (150-450) Mean Platelet Volume 6.7 FL (6.5-10.1) Neutrophils (%) (Auto) 59.6 % (45.0-75.0) Lymphocytes (%) (Auto) 30.0 % (20.0-45.0) Monocytes (%) (Auto) 9.1 % (1.0-10.0) Eosinophils (%) (Auto) 0.2 % (0.0-3.0) Basophils (%) (Auto) 1.2 % (0.0-2.0) Sodium Level 143 MMOL/L (136-145) Potassium Level 3.8 MMOL/L (3.5-5.1) Chloride Level 105 MMOL/L (98-107) Carbon Dioxide Level 12 MMOL/L (21-32) L Anion Gap 26 mmol/L (5-15) H Blood Urea Nitrogen 8 mg/dL (7-18) Creatinine 1.3 MG/DL (0.55-1.30) Estimat Glomerular Filtration Rate > 60 mL/min (>60) Glucose Level 108 MG/DL (74-106) H Calcium Level 9.4 MG/DL (8.5-10.1) Total Bilirubin 0.2 MG/DL (0.2-1.0) Aspartate Amino Transf (AST/SGOT) 27 U/L (15-37) Alanine Aminotransferase (ALT/SGPT) 24 U/L (12-78) Alkaline Phosphatase 154 U/L (46-116) H Total Protein 8.1 G/DL (6.4-8.2) Albumin 4.5 G/DL (3.4-5.0) Globulin 3.6 g/dL Albumin/Globulin Ratio 1.2 (1.0-2.7) Serum Alcohol < 3 mg/dL Height (Feet): 6 Height (Inches): 1.00 Weight (Pounds): 205 Medications Current Medications Medications (Trade) Dose Ordered Sig/Joe Route PRN Reason Start Time Stop Time Status Last Admin Dose Admin Acetaminophen (Tylenol) 650 mg Q4H PRN ORAL fever 10/15/18 18:45 11/14/18 18:44 Dextrose (Dextrose 50%) 25 ml Q30M PRN IV Hypoglycemia 10/15/18 18:45 11/14/18 18:44 Dextrose (Dextrose 50%) 50 ml Q30M PRN IV Hypoglycemia 10/15/18 19:00 11/14/18 18:59 Heparin Sodium (Porcine) (Heparin 5000 units/ml) 5,000 units EVERY 12 HOURS SUBQ 10/15/18 21:00 11/14/18 20:59 Levetiracetam (Keppra) 1,000 mg EVERY 12 HOURS ORAL 10/15/18 21:00 11/14/18 20:59 Lorazepam (Ativan 2mg/ml 1ml) 2 mg Q1H PRN IV seizures 10/15/18 18:45 10/22/18 18:44 Morphine Sulfate (Morphine Sulfate) 1 mg Q4H PRN IVP For Pain 10/15/18 18:45 10/22/18 18:44 Ondansetron HCl (Zofran) 4 mg Q6H PRN IVP Nausea & Vomiting 10/15/18 18:45 11/14/18 18:44 Polyethylene Glycol (Miralax) 17 gm HSPRN PRN ORAL Constipation 10/15/18 18:45 11/14/18 18:44 Zolpidem Tartrate (Ambien) 5 mg HSPRN PRN ORAL Insomnia 10/15/18 18:45 10/22/18 18:44 Assessment/Plan Problem List: (1) Polysubstance abuse ICD Codes: F19.10 - Other psychoactive substance abuse, uncomplicated SNOMED: 933650977 (2) Nonadherence to medication ICD Codes: Z91.14 - Patient's other noncompliance with medication regimen SNOMED: 590369443 (3) Seizure disorder ICD Codes: G40.909 - Epilepsy, unspecified, not intractable, without status epilepticus SNOMED: 266972533 (4) Cocaine abuse ICD Codes: F14.10 - Cocaine abuse, uncomplicated SNOMED: 97767750 (5) Epileptic seizure, generalized ICD Codes: G40.309 - Generalized idiopathic epilepsy and epileptic syndromes, not intractable, without status epilepticus SNOMED: 17468689 Assessment/Plan: Recommend Q2 Hour Neuro Obs given tox screen and non compliance with Keppra SBP<140 Maintain normoglycemia with ISS EEG Routine ordered - Strongly recommend Psych ax and discussion regarding SUBSTANCE ABUSE TREATMENT with patient. Monitor for signs of depression/ suicidal ideation This is his 4th positive Tox for cocaine in 2019 on admission for seizure. Na 135-145 Shanice Dai N.P. Oct 15, 2018 22:32
[2018-10-16] VITALS: BP 141/83
[2018-10-16 04:00] VITALS: BP 150/81
[2018-10-16 07:34] LABS: BASOPHILS % (AUTO) 1.4 % (0.0-2.0); EOSINOPHILS % (AUTO) 0.3 % (0.0-3.0); HEMATOCRIT 42.1 % (42.0-52.0); HEMOGLOBIN 13.9 G/DL (14.2-18.0); LYMPHOCYTES % (AUTO) 38.6 % (20.0-45.0); MEAN CORPUSCULAR VOLUME 81 FL (80-99); MONOCYTES % (AUTO) 9.5 % (1.0-10.0); NEUTROPHILS % (AUTO) 50.3 % (45.0-75.0); PLATELET COUNT 234 K/UL (150-450); RED CELL DISTRIBUTION WIDTH 14.1 % (11.6-14.8); WHITE BLOOD COUNT 7.3 K/UL (4.8-10.8)
[2018-10-16 07:54] LABS: ALANINE AMINOTRANSFERASE 23 U/L (12-78); ALBUMIN 4.1 G/DL (3.4-5.0); ALBUMIN/GLOBULIN RATIO 1.5 (1.0-2.7); ALKALINE PHOSPHATASE 129 U/L (46-116); ANION GAP 12 mmol/L (5-15); ASPARTATE AMINO TRANSFERASE 23 U/L (15-37); BILIRUBIN,TOTAL 0.5 MG/DL (0.2-1.0); BLOOD UREA NITROGEN 6 mg/dL (7-18); CALCIUM 9.1 MG/DL (8.5-10.1); CARBON DIOXIDE 24 MMOL/L (21-32); CHLORIDE 105 MMOL/L (98-107); SODIUM 141 MMOL/L (136-145)
[2018-10-16 08:00] VITALS: BP 131/96
[2018-10-16] MEDS: Heparin 5000 units/ml inj SUBQ SCH (08:35)
[2018-10-16 12:00] VITALS: BP 112/74
[2018-10-16] MEDS ORDERED: KEPPRA500 MG ORAL (12:33)
--- NOTE | 2018-10-16 12:46 | Consultation ---
History of Present Illness General Date patient seen: Oct 16, 2018 Chief Complaint: Seizure Referring physician: Dr. Resendiz Present Illness HPI 33 year old man with a known PMH of epilepsy and noncompliance with meds who was BIBA for episodes of generalized seizure. He further admitted to not taking his prescribed Keppra and could not provide further reason for his noncompliance. Allergies: Coded Allergies: No Known Allergies (Unverified , 08/05/14) Medication History Scheduled Folic Acid* (Folic Acid*), 1 MG ORAL DAILY, (Reported) Levetiracetam (Keppra), 500 MG ORAL EVERY 12 HOURS Levetiracetam (Keppra), 1,000 MG ORAL EVERY 12 HOURS Levetiracetam (Keppra), Unknown Dose ORAL EVERY 12 HOURS, (Reported) Levetiracetam (Keppra), 1,000 MG ORAL EVERY 12 HOURS Miscellaneous Medications Unable to Obtain Medications (Unable To Obtain Meds), (Reported) Unable to Obtain Medications (Unable To Obtain Meds), (Reported) Patient History Healthcare decision maker Resuscitation status Full Code Advanced Directive on File No Past Medical/Surgical History Past Medical/Surgical History: (1) Cocaine abuse (2) Nonadherence to medication (3) Polysubstance abuse (4) Epileptic seizure, generalized Review of Systems All Other Systems: negative except mentioned in HPI Physical Exam General Appearance: WD/WN Lines, tubes and drains: peripheral, central line HEENT: normocephalic, atraumatic Neck: non-tender, normal alignment Respiratory/Chest: chest wall non-tender, lungs clear Cardiovascular/Chest: normal peripheral pulses, normal rate Abdomen: normal bowel sounds, non tender Genitourinary/Rectal: normal genital exam Extremities: normal range of motion Skin Exam: normal pigmentation 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 Lymphatic: anterior cervical Last 24 Hour Vital Signs Date Time Temp Pulse Resp B/P (MAP) Pulse Ox O2 Delivery O2 Flow Rate FiO2 10/16/18 09:00 Room Air 10/16/18 08:00 98.9 90 18 131/96 (108) 96 10/16/18 08:00 90 10/16/18 04:00 98.4 83 18 150/81 (104) 96 10/16/18 04:00 83 10/16/18 00:00 88 10/16/18 00:00 98.4 88 18 141/83 (102) 96 10/15/18 21:00 Room Air 10/15/18 20:00 98.4 84 18 143/90 (107) 96 10/15/18 20:00 84 10/15/18 17:45 Room Air 10/15/18 17:30 98.9 74 18 131/80 (97) 100 10/15/18 17:11 98.0 95 18 120/75 99 Room Air 10/15/18 16:52 95 18 120/75 99 Room Air 10/15/18 13:31 101 18 126/76 98 Room Air Laboratory Tests Test 10/16/18 06:35 White Blood Count 7.3 K/UL (4.8-10.8) Red Blood Count 5.20 M/UL (4.70-6.10) Hemoglobin 13.9 G/DL (14.2-18.0) L Hematocrit 42.1 % (42.0-52.0) Mean Corpuscular Volume 81 FL (80-99) Mean Corpuscular Hemoglobin 26.7 PG (27.0-31.0) L Mean Corpuscular Hemoglobin Concent 33.0 G/DL (32.0-36.0) Red Cell Distribution Width 14.1 % (11.6-14.8) Platelet Count 234 K/UL (150-450) Mean Platelet Volume 6.1 FL (6.5-10.1) L Neutrophils (%) (Auto) 50.3 % (45.0-75.0) Lymphocytes (%) (Auto) 38.6 % (20.0-45.0) Monocytes (%) (Auto) 9.5 % (1.0-10.0) Eosinophils (%) (Auto) 0.3 % (0.0-3.0) Basophils (%) (Auto) 1.4 % (0.0-2.0) Sodium Level 141 MMOL/L (136-145) Potassium Level 4.0 MMOL/L (3.5-5.1) Chloride Level 105 MMOL/L (98-107) Carbon Dioxide Level 24 MMOL/L (21-32) Anion Gap 12 mmol/L (5-15) Blood Urea Nitrogen 6 mg/dL (7-18) L Creatinine 1.0 MG/DL (0.55-1.30) Estimat Glomerular Filtration Rate > 60 mL/min (>60) Glucose Level 82 MG/DL (74-106) Calcium Level 9.1 MG/DL (8.5-10.1) Total Bilirubin 0.5 MG/DL (0.2-1.0) Aspartate Amino Transf (AST/SGOT) 23 U/L (15-37) Alanine Aminotransferase (ALT/SGPT) 23 U/L (12-78) Alkaline Phosphatase 129 U/L (46-116) H Troponin I 0.000 ng/mL (0.000-0.056) Total Protein 6.9 G/DL (6.4-8.2) Albumin 4.1 G/DL (3.4-5.0) Globulin 2.8 g/dL Albumin/Globulin Ratio 1.5 (1.0-2.7) Height (Feet): 6 Height (Inches): 1.00 Weight (Pounds): 205 Medications Current Medications Medications (Trade) Dose Ordered Sig/Joe Route PRN Reason Start Time Stop Time Status Last Admin Dose Admin Acetaminophen (Tylenol) 650 mg Q4H PRN ORAL fever 10/15/18 18:45 11/14/18 18:44 Dextrose (Dextrose 50%) 25 ml Q30M PRN IV Hypoglycemia 10/15/18 18:45 11/14/18 18:44 Dextrose (Dextrose 50%) 50 ml Q30M PRN IV Hypoglycemia 10/15/18 19:00 11/14/18 18:59 Heparin Sodium (Porcine) (Heparin 5000 units/ml) 5,000 units EVERY 12 HOURS SUBQ 10/15/18 21:00 11/14/18 20:59 10/16/18 08:35 Levetiracetam (Keppra) 1,000 mg EVERY 12 HOURS ORAL 10/15/18 21:00 11/14/18 20:59 10/16/18 08:34 Lorazepam (Ativan 2mg/ml 1ml) 2 mg Q1H PRN IV seizures 10/15/18 18:45 10/22/18 18:44 Morphine Sulfate (Morphine Sulfate) 1 mg Q4H PRN IVP For Pain 10/15/18 18:45 10/22/18 18:44 Ondansetron HCl (Zofran) 4 mg Q6H PRN IVP Nausea & Vomiting 10/15/18 18:45 11/14/18 18:44 Polyethylene Glycol (Miralax) 17 gm HSPRN PRN ORAL Constipation 10/15/18 18:45 11/14/18 18:44 Zolpidem Tartrate (Ambien) 5 mg HSPRN PRN ORAL Insomnia 10/15/18 18:45 10/22/18 18:44 Assessment/Plan Problem List: (1) Uncontrolled seizures ICD Codes: R56.9 - Unspecified convulsions SNOMED: 73873798 (2) Polysubstance abuse ICD Codes: F19.10 - Other psychoactive substance abuse, uncomplicated SNOMED: 258095545 (3) Nonadherence to medication ICD Codes: Z91.14 - Patient's other noncompliance with medication regimen SNOMED: 624953817 (4) Cocaine abuse ICD Codes: F14.10 - Cocaine abuse, uncomplicated SNOMED: 66361318 Status Narrative resume [facility] dc home pt was advised to refrain from taking Cocaine Melanie Arredondo MD Oct 16, 2018 12:46
[2018-10-16 16:00] VITALS: BP 112/76
--- NOTE | 2018-10-16 18:45 | History and Physical Report ---
DATE OF ADMISSION: 10/15/2018 DATE AND TIME SEEN: 10/16/2018 at 3 p.m. CONSULTANTS:: 1. Melanie Arredondo M.D. 2. Prosper Ruiz M.D. CHIEF COMPLAINT: Seizure. BRIEF HISTORY: This is a 33-year-old male, who lives at home with history of seizure. Apparently, he was taking some drugs and had a seizure episode. The patient came to [facility], diagnosed with the above, admitted to medical floor. Currently calm in bed, feeling better, wants to go home. PAST MEDICAL HISTORY: Includes seizure, diabetes, and drug abuse. PAST SURGICAL HISTORY: None. ALLERGIES: Denies. MEDICATIONS: Include Keppra, heparin, Ambien, Ativan, Zofran, and MiraLAX. SOCIAL HISTORY: Positive smoke. Positive alcohol. Positive use of ecstasy and cocaine. PHYSICAL EXAMINATION: GENERAL: Calm in bed, oriented x3, in no acute distress. VITAL SIGNS: Temperature 98 degrees, pulse 92, respirations 18, and blood pressure 112/74. CARDIOVASCULAR: No murmur. LUNGS: Distant and clear. ABDOMEN: Bowel sounds positive. Nontender. Nondistended. EXTREMITIES: No cyanosis, clubbing, or edema. NEUROLOGIC: The patient moves all extremities, slightly weak. LABORATORY AND DIAGNOSTIC DATA: Initial white count 14, otherwise CBC is normal. BMP show BUN is 6, otherwise BMP is normal. Alkaline phosphatase 129. Troponin 0.00. Urinalysis - 2+ blood, 1+ leukocyte esterase. Urine tox positive for cocaine, positive for marijuana. ASSESSMENT: 1. Seizure. 2. Diabetes. 3. Drug abuse. PLAN: 1. Detox. 2. Seizure control. 3. Blood sugar control. 4. Dietary followup. 5. CBC and BMP in the morning. 6. Discharge plan if cleared by team. Pipo Resendiz D.O. DR: SANTI JOB#: [id number] CC:
--- NOTE | 2018-10-17 07:26 | Discharge Summary ---
Discharge Summary Discharge Summary _ DATE OF ADMISSION: 10/15/2018 DATE OF DISCHARGE: 10/16/2018 DISCHARGED BY: Dr. Pipo Resendiz CONSULTANTS: Dr. Melanie Ruiz [facility] HOSPITAL COURSE: Patient is a 33-year-old male, who lives at home, with history of seizure disorder and diabetes. Apparently patient was taking drugs and had a seizure episode. EMS were called by the patient's parents when he had a tonic-clonic seizure. Per EMS, patient is noncompliant with medications. Patient admitted to not taking his Keppra. He denied head trauma or recent illness. He denied fever or chills. He complained of headache. He had several admissions to ED due to seizures. On evaluation at ED, blood work showed leukocytosis, WBC was 14.5. Hemoglobin and hematocrit were stable. Electrolytes were normal. Urine toxicology screen was positive for cocaine and marijuana. He refused CT scan. Initially patient declined to have IV Keppra. However, he had a seizure at the ED and was given IV Ativan and was loaded with Keppra. He was admitted to telemetry for seizure disorder. He was placed on seizure precautions. He was resumed on Keppra. Neuro consultation was obtained. Patient had several admissions to ED and had tested positive for cocaine four times in 2019. He was strongly advised to refrain from taking cocaine. Stressed the importance of compliance with medications. There were no further seizure episodes noted. He was then discharged home. FINAL DIAGNOSES: Seizure disorder with acute exacerbation Nonadherence to medications Diabetes Polysubstance drug abuse DISPOSITION: Patient was discharged home. DISCHARGE MEDICATIONS: Refer to Discharge Medication List. DISCHARGE INSTRUCTIONS: Follow-up in a week. I have been assigned to complete a discharge summary on this account, I was not involved with the patient's management. Irais Navarro NP Oct 17, 2018 07:26
--- NOTE | 2018-10-17 19:19 | Cardiology Report ---
APPROVED REPORT EKG Measurement Heart [id number] Normal sinus rhythm with sinus arrhythmia Normal ECG
== END 2018-10-16 16:15 | disposition home or self-care (01) | DRG 53 ==
LOC: EDBD 08:31 → EMR 08:55 → 2E 15:00 → EDBEDREQ 16:15
DX: G40.409 Other generalized epilepsy and epileptic syndromes, not intractable, without status epilepticus (principal); E11.9 Type 2 diabetes mellitus without complications; F14.10 Cocaine abuse, uncomplicated; Z91.14 Patient's other noncompliance with medication regimen; F19.10 Other psychoactive substance abuse, uncomplicated
CPT/HCPCS: 36415; 80053; 80299; 80307; 80329; 81003; 82962; 84484; 85025; 93005; 96361; 96365; 96374; 96375; 96376; 99291

== ENCOUNTER 2018-11-07 08:48 | Emergency (ER) | payer OTHER ==
[~2018-11-07] VITALS: Ht 177.8 cm; Wt 81.6 kg
[~2018-11-07 08:48] MED LIST changes: +FOLIC ACID1 MG ORAL
[2018-11-07 08:52] VITALS: BP 112/54
--- NOTE | 2018-11-07 08:55 | NUR ---
ED Nurse Note: pt brought by [facility] from home due to seizure. witnessed by family member. pt was lying on carpet floor. non-compliant for seizure medication. postictal upon arrival. pt open eye with pain. will assess neuro after wake up. no visible trauma noted. on shoe polisher. seziure pad applied. side rails up x2. will wait for the further order.
[2018-11-07] MEDS: levETIRAcetam 500 MG in D5W 110 ML IV ONE ×2 (09:00→12:46)
--- NOTE | 2018-11-07 09:00 | NUR ---
ED Nurse Note: pt combative and unable to stay still. RN attempted to draw blood multiple times. RN notified Dr. Burdick. will wait for order. rashes noted on all over the body and pt scratches himself. Dr. Burdick notified. no further order at this time.
[2018-11-07] MEDS ORDERED: LORazepam Inj 2mg/ml 1ml IM ONE ×3 (09:15→12:00)
--- NOTE | 2018-11-07 09:15 | Emergency Room Report ---
History of Present Illness General Chief Complaint: Seizure Source: Medical Record, EMS Present Illness HPI 33-year-old male presents ED for evaluation. Brought in by EMS status post seizure. Witnessed seizure at home. Found down on ground. Given Versed by EMS. Upon arrival patient is postictal, lethargic. Notes history of seizures. Well-known to EMS and is not typically compliant with his medications. Also admits to drug use. Has been here multiple times for similar presentation. No other aggravating relieving factors. No other associated symptoms Allergies: Coded Allergies: No Known Allergies (Unverified , 08/05/14) Patient History Past Medical History: DM, seizures Past Surgical History: none Pertinent Family History: none Social History: Reports: drug use; Denies: smoking, alcohol use Immunizations: UTD Reviewed Nursing Documentation: PMH: Agreed; PSxH: Agreed Nursing Documentation-PMH Hx Cardiac Problems: No Hx Diabetes: Yes Hx Cancer: No Hx Gastrointestinal Problems: No Hx Neurological Problems: Yes Hx Seizures: Yes Review of Systems All Other Systems: limited Physical Exam Vital Signs Date Time Temp Pulse Resp B/P (MAP) Pulse Ox O2 Delivery O2 Flow Rate FiO2 11/07/18 08:52 101 25 Room Air 11/07/18 08:52 112/54 100 11/07/18 08:53 97.2 Sp02 EP Interpretation: reviewed, normal General Appearance: Postictal Head: normocephalic, atraumatic Eyes: bilateral eye normal inspection, bilateral eye PERRL ENT: normal ENT inspection Neck: normal inspection Respiratory: chest non-tender, lungs clear, normal breath sounds, speaking full sentences Cardiovascular #1: regular rate, rhythm, no edema Gastrointestinal: normal inspection Rectal: deferred Genitourinary: no CVA tenderness Musculoskeletal: normal inspection Neurologic: other - postiictal Psychiatric: other - postictal Skin: normal color Lymphatic: normal inspection Medical Decision Making Diagnostic Impression: Primary Impression: Uncontrolled seizures Qualified Codes: R56.9 - Unspecified convulsions Additional Impression: Substance abuse ER Course Hospital Course 33-year-old M presents to ED status post seizure. Differential diagnosis includes- breakthrough seizure, alcohol abuse, noncompliance with medication Clinical course Patient placed on stretcher. Initial history and physical I ordered labs, IV fluids, CT brain Patient remains combative while postictal. Patient well-known to [facility] and has behaved like this previously. Pulls away during IV attempts. CT head negative Patient given Ativan for sedation however has repeat seizure in ED. IM Ativan given. IV access established. Given IV Keppra. Labs-electrolytes okay, no leukocytosis noted, hemoglobin/hematocrit stable. Utox + BZs + THC CT Brain ok Because of insurance patient will be transferred i. I feel this is a highly complex case requiring extensive working including EKG/Rhythm strip, Xray/CT/US, Blood/urine lab work, repeat exams while in ED, and administration of strong opiates/narcotics for pain control, admission to hospital or close patient follow up. Diagnosis -uncontrolled seizures, substance abuse transferred in serious condition Labs Test 11/07/18 12:15 11/07/18 13:30 White Blood Count 7.3 K/UL (4.8-10.8) Red Blood Count 5.45 M/UL (4.70-6.10) Hemoglobin 14.3 G/DL (14.2-18.0) Hematocrit 46.1 % (42.0-52.0) Mean Corpuscular Volume 85 FL (80-99) Mean Corpuscular Hemoglobin 26.2 PG (27.0-31.0) Mean Corpuscular Hemoglobin Concent 30.9 G/DL (32.0-36.0) Red Cell Distribution Width 14.3 % (11.6-14.8) Platelet Count 261 K/UL (150-450) Mean Platelet Volume 6.6 FL (6.5-10.1) Neutrophils (%) (Auto) 60.0 % (45.0-75.0) Lymphocytes (%) (Auto) 30.9 % (20.0-45.0) Monocytes (%) (Auto) 7.7 % (1.0-10.0) Eosinophils (%) (Auto) 0.6 % (0.0-3.0) Basophils (%) (Auto) 0.9 % (0.0-2.0) Urine Opiates Screen Negative (NEGATIVE) Urine Barbiturates Screen Negative (NEGATIVE) Phencyclidine (PCP) Screen Negative (NEGATIVE) Urine Amphetamines Screen Negative (NEGATIVE) Urine Benzodiazepines Screen Positive (NEGATIVE) Urine Cocaine Screen Negative (NEGATIVE) Urine Marijuana (THC) Screen Positive (NEGATIVE) Sodium Level 141 MMOL/L (136-145) Potassium Level 4.2 MMOL/L (3.5-5.1) Chloride Level 109 MMOL/L (98-107) Carbon Dioxide Level 26 MMOL/L (21-32) Anion Gap 6 mmol/L (5-15) Blood Urea Nitrogen 7 mg/dL (7-18) Creatinine 1.0 MG/DL (0.55-1.30) Estimat Glomerular Filtration Rate > 60 mL/min (>60) Glucose Level 85 MG/DL (74-106) Calcium Level 8.9 MG/DL (8.5-10.1) Total Bilirubin 0.2 MG/DL (0.2-1.0) Aspartate Amino Transf (AST/SGOT) 25 U/L (15-37) Alanine Aminotransferase (ALT/SGPT) 24 U/L (12-78) Alkaline Phosphatase 109 U/L (46-116) Total Protein 6.6 G/DL (6.4-8.2) Albumin 3.2 G/DL (3.4-5.0) Globulin 3.4 g/dL Albumin/Globulin Ratio 0.9 (1.0-2.7) Salicylates Level 5.9 ug/mL (2.8-20) Acetaminophen Level < 2 MCG/ML (10-30) CT/MRI/US Diagnostic Results CT/MRI/US Diagnostic Results : Imaging Test Ordered: CT Head Impression no acute process Last Vital Signs Date Time Temp Pulse Resp B/P (MAP) Pulse Ox O2 Delivery O2 Flow Rate FiO2 11/07/18 08:53 97.2 103 18 112/54 (73) 99 11/07/18 08:52 Room Air Status: improved [facility] Condition: Serious Bryant Burdick MD Nov 07, 2018 09:15
--- NOTE | 2018-11-07 09:30 | NUR ---
ED Nurse Note: pt lying in left side and sleep. once staff touch him for blood draw or cable connection, pt became combative. uncooperative to care. RN notified Dr. Burdick. will give more meds. will wait for the order.
[2018-11-07] MEDS ORDERED: LORazepam Inj 2mg/ml 1ml ONE ×2 (09:39→11:54)
--- NOTE | 2018-11-07 10:31 | NUR ---
ED Nurse Note: pt came back from CT. pt still combative when RN attempt to start IV. RN notified Dr. Burdick, per . it is ok not to have blood work up done and IV access. will monitor pt.
[2018-11-07 10:37] VITALS: BP 119/60
--- NOTE | 2018-11-07 10:48 | Diagnostic Imaging Report ---
Indication: Seizure Technique: Contiguous 5 mm thick transaxial imaging of the head obtained in a Siemens Sensation [address] scanner. Soft tissue and bone windows generated. Automatic Exposure Control was utilized. Total Dose length Product (DLP): 1569.[address] Dose Index Volume (CTDIvol): 70.38 mGy Comparison: 09/18/2017 Findings: The size and configuration of the cortical sulci, basal cisterns, and ventricles are within normal limits for age. There is no mass effect, midline shift, or edema identified. There is no evidence of acute hemorrhage or abnormal intra-axial or extra-axial fluid collections. The bones and soft tissues are unremarkable. Impression: No mass effect, edema or acute bleed. The CT scanner at [facility] is accredited by the [employer] and the scans are performed using dose optimization techniques as appropriate to a performed exam including Automatic Exposure control.
--- NOTE | 2018-11-07 12:40 | NUR ---
ED Nurse Note: pt had seizure activity and witnessed by Dr. Burdick. oxygen on, side lying. meds given as verbal order.
[2018-11-07] MEDS ORDERED: levETIRAcetam 500mg vial IV ONE (12:45)
[2018-11-07 12:58] LABS: BASOPHILS % (AUTO) 0.9 % (0.0-2.0); EOSINOPHILS % (AUTO) 0.6 % (0.0-3.0); HEMATOCRIT 46.1 % (42.0-52.0); HEMOGLOBIN 14.3 G/DL (14.2-18.0); LYMPHOCYTES % (AUTO) 30.9 % (20.0-45.0); MEAN CORPUSCULAR VOLUME 85 FL (80-99); MONOCYTES % (AUTO) 7.7 % (1.0-10.0); PLATELET COUNT 261 K/UL (150-450); RED BLOOD COUNT 5.45 M/UL (4.70-6.10); RED CELL DISTRIBUTION WIDTH 14.3 % (11.6-14.8); WHITE BLOOD COUNT 7.3 K/UL (4.8-10.8)
[2018-11-07 13:00] VITALS: BP 106/60
--- NOTE | 2018-11-07 13:15 | NUR ---
SPOKE TO DR BRAVO REGARDING TRANSFER . STILL WAITING FOR MORE LAB RESULTS
[2018-11-07 14:02] LABS: ANION GAP 6 mmol/L (5-15); BLOOD UREA NITROGEN 7 mg/dL (7-18); CALCIUM 8.9 MG/DL (8.5-10.1); CARBON DIOXIDE 26 MMOL/L (21-32); CHLORIDE 109 MMOL/L (98-107); POTASSIUM 4.2 MMOL/L (3.5-5.1); SODIUM 141 MMOL/L (136-145)
--- NOTE | 2018-11-07 14:05 | NUR ---
REPORT CALLED TO MAREK ZARCO . PATIENT WILL BE TRANSFERD TO [facility] VIA AMBULANCE
[2018-11-07 14:06] LABS: ALANINE AMINOTRANSFERASE 24 U/L (12-78); ALBUMIN 3.2 G/DL (3.4-5.0); ALBUMIN/GLOBULIN RATIO 0.9 (1.0-2.7); ALKALINE PHOSPHATASE 109 U/L (46-116); ASPARTATE AMINO TRANSFERASE 25 U/L (15-37); BILIRUBIN,TOTAL 0.2 MG/DL (0.2-1.0)
[2018-11-07 15:00] VITALS: BP 111/71
[2018-11-07 16:32] VITALS: BP 132/87
--- NOTE | 2018-11-07 16:34 | NUR ---
ED Nurse Note: pt transferred to [facility] by [facility] ambulance.
== END 2018-11-07 16:35 | disposition short-term general hospital (02) ==
LOC: EDBD 08:48 → EMR 09:12 → EDBEDREQ 12:53 → EMR 16:35
DX: R56.9 Unspecified convulsions (principal); E11.9 Type 2 diabetes mellitus without complications; F19.10 Other psychoactive substance abuse, uncomplicated
CPT/HCPCS: 36415; 70450; 80053; 80307; 80329; 85025; 96361; 96372; 96374; 99285; J1953

== ENCOUNTER 2018-11-29 14:08 | Emergency (ER) | payer OTHER ==
[~2018-11-29] VITALS: Ht 182.9 cm; Wt 99.8 kg
[2018-11-29 14:10] VITALS: BP 114/68
--- NOTE | 2018-11-29 14:10 | NUR ---
ED Nurse Note: pt brought by RA94 from home due to seizure activity. unwitnessed. no visible trauma noted. pt arousable by name. cooperative. non-compliant on sz meds. respirations even and non-labored noted. scaly skin noted on both hands. on racing mechanic. seizure pad applied. 2x side rails up. will wait for the further order.
[2018-11-29] MEDS ORDERED: levETIRAcetam 1,000mg/NS100ml 100 ML IVPB ONE (14:15)
[2018-11-29] MEDS ORDERED: LORazepam Inj 2mg/ml 1ml IV ONE (14:15)
--- NOTE | 2018-11-29 14:21 | Emergency Room Report ---
History of Present Illness General Chief Complaint: Seizure Source: EMS Present Illness HPI 33-year-old male history of seizures, takes Keppra, presents with tonic-clonic movement prior to arrival lasting 3 minutes, patient is currently postictal, history is limited, seizure severity severe: Duration minutes, aggravated by unknown, alleviated by Keppra, Allergies: Coded Allergies: No Known Allergies (Unverified , 08/05/14) Patient History Limited by: medical condition - Currently postictal Past Medical History: see triage record Reviewed Nursing Documentation: PMH: Agreed; PSxH: Agreed Nursing Documentation-PMH Past Medical History: No History, Except For Hx Cardiac Problems: No Hx Diabetes: Yes Hx Cancer: No Hx Gastrointestinal Problems: No Hx Neurological Problems: Yes Hx Seizures: Yes Review of Systems All Other Systems: limited - Postictal Physical Exam Vital Signs Date Time Temp Pulse Resp B/P (MAP) Pulse Ox O2 Delivery O2 Flow Rate FiO2 11/29/18 14:09 98.6 96 18 140/82 (101) 100 Room Air Sp02 EP Interpretation: reviewed, normal General Appearance: well appearing, other - Confused Head: normocephalic, atraumatic Eyes: bilateral eye PERRL, bilateral eye EOMI ENT: uvula midline, moist mucus membranes Neck: supple, thyroid normal, supple/symm/no masses Respiratory: lungs clear, no respiratory distress, no retraction, no accessory muscle use Cardiovascular #1: normal peripheral pulses, regular rate, rhythm, no edema, no gallop, no murmur Gastrointestinal: non tender, soft, no guarding, no rebound Musculoskeletal: normal inspection Neurologic: responsive, other - Moving all 4 extremities Psychiatric: mood/affect normal Skin: no rash, warm/dry Medical Decision Making Diagnostic Impression: Primary Impression: Seizure disorder ER Course Patient with history of seizures, on Keppra, will provide patient with Keppra here, will check glucose, will provide patient with fluids, Ativan, will re-eval Patient still postictal Patient accepted by Dr. Alvarez at 4:16pm Patient came back to baseline refused any further treatment and left AGAINST MEDICAL ADVICE The patient has requested to leave the ED against medical advice. The patient reason(s) for leaving include, but are not limited to, the following: back to baseline. I believe this patient is of sound mind and competent to refuse medical care. The patient is responding and asking questions appropriately. The patient is oriented to person, place and time. The patient is not psychotic, delusional, suicidal, homicidal or hallucinating. The patient demonstrates a normal mental capacity to make decisions regarding their healthcare. The patient is clinically sober and does not appear to be under the influence of any illicit drugs at this time. The patient has been advised of the risks, in layman terms, of leaving AMA which include, but are not limited to , coma, permanent disability, loss of current lifestyle, delay in diagnosis. Alternatives have been offered - the patient remains steadfast in their wish to leave. The patient has been advised that should they change their mind they are welcome to return to this hospital, or any other, at any time. The patient understands that in no way does an AMA discharge mean that I do not want them to have the best medical care available. To this end, I have provided appropriate prescriptions, referrals, and discharge instructions. The patient did sign AMA paperwork. The above discussion was witnessed by another member of staff. Laboratory Tests Test 11/29/18 15:00 White Blood Count 7.2 K/UL (4.8-10.8) Red Blood Count 5.77 M/UL (4.70-6.10) Hemoglobin 14.9 G/DL (14.2-18.0) Hematocrit 48.7 % (42.0-52.0) Mean Corpuscular Volume 84 FL (80-99) Mean Corpuscular Hemoglobin 25.8 PG (27.0-31.0) L Mean Corpuscular Hemoglobin Concent 30.6 G/DL (32.0-36.0) L Red Cell Distribution Width 14.0 % (11.6-14.8) Platelet Count 230 K/UL (150-450) Mean Platelet Volume 5.8 FL (6.5-10.1) L Neutrophils (%) (Auto) 51.6 % (45.0-75.0) Lymphocytes (%) (Auto) 39.7 % (20.0-45.0) Monocytes (%) (Auto) 6.8 % (1.0-10.0) Eosinophils (%) (Auto) 0.6 % (0.0-3.0) Basophils (%) (Auto) 1.3 % (0.0-2.0) Sodium Level 142 MMOL/L (136-145) Potassium Level 3.9 MMOL/L (3.5-5.1) Chloride Level 103 MMOL/L (98-107) Carbon Dioxide Level 21 MMOL/L (21-32) Anion Gap 18 mmol/L (5-15) H Blood Urea Nitrogen 8 mg/dL (7-18) Creatinine 1.2 MG/DL (0.55-1.30) Estimate Glomerular Filtration Rate > 60 mL/min (>60) Glucose Level 72 MG/DL (74-106) L Calcium Level 10.1 MG/DL (8.5-10.1) Total Bilirubin 0.2 MG/DL (0.2-1.0) Aspartate Amino Transferase (AST) 27 U/L (15-37) Alanine Aminotransferase (ALT) 17 U/L (12-78) Alkaline Phosphatase 123 U/L (46-116) H Total Creatine Kinase 534 U/L (26-308) H Creatine Kinase MB 2.2 NG/ML (0.0-3.6) Creatine Kinase MB Relative Index 0.4 Total Protein 8.5 G/DL (6.4-8.2) H Albumin 4.1 G/DL (3.4-5.0) Globulin 4.4 g/dL Albumin/Globulin Ratio 0.9 (1.0-2.7) L Salicylates Level 6.5 ug/mL (2.8-20) Acetaminophen Level < 2 MCG/ML (10-30) L Phenytoin (Dilantin) Level 1.0 ug/mL (10-20) L Valproic Acid Level < 3 MCG/ML (50-100) L Carbamazepine (Tegretol) Level < 0.5 ug/mL (4.0-12.0) L Phenobarbital Level < 1.0 ug/mL (15-40) L Serum Alcohol < 3 mg/dL EKG Diagnostic Results EKG Time: 14:28 EP Interpretation: NSR, rate 91, QTc 447, no acute ST elevations, normal axis Rate: normal Rhythm: NSR ST Segments: no acute changes Rhythm Strip Diag. Results Rhythm Strip Time: 14:38 EP Interpretation: yes Rate: 89 Rhythm: NSR, no PVC's, no ectopy Last Vital Signs Date Time Temp Pulse Resp B/P (MAP) Pulse Ox O2 Delivery O2 Flow Rate FiO2 8/2/19 14:09 98.6 96 18 140/82 (101) 100 Room Air Disposition: AGAINST MEDICAL ADVICE Condition: Improved Patient Instructions: Seizure, Adult Additional Instructions: The patient was provided with discharge instructions, notified to follow-up with a primary care doctor and or specialist in the next 24-48 hours, and to return to the ED if they have worsening of their symptoms. Please note that this report is being documented using [employer] technology. This can lead to erroneous entry secondary to incorrect interpretation by the dictating instrument. Prosper Chacon MD Nov 29, 2018 14:21
[2018-11-29 15:00] VITALS: BP 109/69
[2018-11-29 15:09] LABS: BASOPHILS % (AUTO) 1.3 % (0.0-2.0); EOSINOPHILS % (AUTO) 0.6 % (0.0-3.0); HEMATOCRIT 48.7 % (42.0-52.0); HEMOGLOBIN 14.9 G/DL (14.2-18.0); LYMPHOCYTES % (AUTO) 39.7 % (20.0-45.0); MEAN CORPUSCULAR VOLUME 84 FL (80-99); MONOCYTES % (AUTO) 6.8 % (1.0-10.0); NEUTROPHILS % (AUTO) 51.6 % (45.0-75.0); PLATELET COUNT 230 K/UL (150-450); RED BLOOD COUNT 5.77 M/UL (4.70-6.10); WHITE BLOOD COUNT 7.2 K/UL (4.8-10.8)
[2018-11-29 15:22] LABS: ANION GAP 18 mmol/L (5-15); BLOOD UREA NITROGEN 8 mg/dL (7-18); CALCIUM 10.1 MG/DL (8.5-10.1); CARBON DIOXIDE 21 MMOL/L (21-32); CHLORIDE 103 MMOL/L (98-107); CREATININE 1.2 MG/DL (0.55-1.30); POTASSIUM 3.9 MMOL/L (3.5-5.1); SODIUM 142 MMOL/L (136-145)
[2018-11-29 15:42] LABS: ALANINE AMINOTRANSFERASE 17 U/L (12-78); ALBUMIN 4.1 G/DL (3.4-5.0); ALBUMIN/GLOBULIN RATIO 0.9 (1.0-2.7); ALKALINE PHOSPHATASE 123 U/L (46-116); ASPARTATE AMINO TRANSFERASE 27 U/L (15-37); BILIRUBIN,TOTAL 0.2 MG/DL (0.2-1.0); CKMB 2.2 NG/ML (0.0-3.6); CREATINE KINASE 534 U/L (26-308)
[2018-11-29 16:00] VITALS: BP 127/75
[2018-11-29 17:00] VITALS: BP 123/78
--- NOTE | 2018-11-29 17:22 | NUR ---
ED Nurse Note: pt lying in bed comfortably without facial grimacing or moaning. will wait for the transportation.
--- NOTE | 2018-11-29 17:25 | NUR ---
called to give report no answer but left message to call back
--- NOTE | 2018-11-29 18:36 | NUR ---
ED Nurse Note: Reports given to Vah[facility] nursing buildings and grounds supervisor at [facility].
--- NOTE | 2018-11-29 18:36 | NUR ---
ED Nurse Note: pt transferred to [place] [facility] by [facility] [address].
--- NOTE | 2018-11-29 18:43 | NUR ---
ED Nurse Note: Dr. Chacon explained that it can cause, , permant disability if pt not admitted to hospital. RN instructed pt to take seizure meds and he can come back anytime.
--- NOTE | 2018-11-29 18:45 | NUR ---
ED Nurse Note: pt refused to transfer, pt screaming and yelling to RN "fuck off, im gonna go home." pt is fully awake and oriented x 4. Dr. Chacon notified. pt signed AMA.
[2018-11-29 18:47] VITALS: BP 117/70
--- NOTE | 2018-11-29 18:47 | NUR ---
AMA: SEE AMA FORM.
--- NOTE | 2018-11-29 18:49 | NUR ---
ED Nurse Note: IV access removed by BETTY Sanford.
== END 2018-11-29 18:47 | disposition left against medical advice (07) ==
LOC: EDBD 14:08 → EMR 15:00
DX: G40.409 Other generalized epilepsy and epileptic syndromes, not intractable, without status epilepticus (principal); E11.9 Type 2 diabetes mellitus without complications
CPT/HCPCS: 36415; 80053; 80156; 80164; 80184; 80185; 80329; 82550; 82553; 85025; 93005; 96361; 96374; 96375; 99284; J1953

== ENCOUNTER 2019-03-19 06:19 | Emergency (ER) | payer OTHER ==
[~2019-03-19] VITALS: Ht 188 cm; Wt 93.0 kg
[2019-03-19] VITALS (8 sets, daily range): BP systolic 101–115; BP diastolic 55–72
--- NOTE | 2019-03-19 06:59 | Emergency Room Report ---
History of Present Illness General Chief Complaint: Seizure Source: EMS Present Illness HPI 34-year-old male with known seizure disorder presents to emergency room with seizure overnight. As per EMS patient reported to have a seizure in bed, witnessed by girlfriend. Patient was postictal on EMS arrival. Patient at this time has no complaints. He states he last took Keppra when he was at the hospital last week. Patient is unaware of his current Keppra dose. Patient admits to noncompliance with medication. Patient denies any alcohol abuse, drug abuse. Patient does know he may have hit his head on the bed frame, or dresser. He denies any headache, nausea, vomiting, dizziness, tinnitus, or facial pain. Allergies: Coded Allergies: No Known Allergies (Unverified , 08/05/14) Patient History PMH Narrative Seizure disorder Nursing Documentation-PMH Hx Cardiac Problems: No Hx Hypertension: Yes Hx Diabetes: Yes Hx Cancer: No Hx Gastrointestinal Problems: No Hx Neurological Problems: Yes Hx Seizures: Yes Review of Systems Constitutional: Denies: chills, fever Eye: Denies: blurred vision, double vision ENT: Denies: ear pain, nose pain Respiratory: Denies: cough, shortness of breath Cardiovascular: Denies: chest pain, palpitations Gastrointestinal: Denies: abdominal pain, nausea, vomiting Musculoskeletal: Denies: back pain, joint pain Skin: Denies: rash, lesions Neurological: Reports: seizure; Denies: headache, focal weakness, dizziness Physical Exam Vital Signs Date Time Temp Pulse Resp B/P (MAP) Pulse Ox O2 Delivery O2 Flow Rate FiO2 03/19/19 06:18 98.4 105 20 124/67 (86) 98 Room Air Sp02 EP Interpretation: reviewed, normal General Appearance: no apparent distress, alert, GCS 15, non-toxic Head: normocephalic, atraumatic ENT: hearing grossly normal, normal pharynx, normal voice, other - No hemotympanum Neck: full range of motion, supple/symm/no masses Respiratory: chest non-tender, lungs clear, normal breath sounds, speaking full sentences Cardiovascular #1: regular rate, rhythm, no edema Cardiovascular #2: 2+ radial (R), 2+ radial (L) Gastrointestinal: normal bowel sounds, non tender, soft, non-distended, no guarding, no rebound Rectal: deferred Musculoskeletal: back normal, normal range of motion, non-tender Neurologic: alert, oriented x3, responsive, motor strength/tone normal, sensory intact, speech normal Skin: warm/dry Medical Decision Making Diagnostic Impression: Primary Impression: Uncontrolled seizures Additional Impression: Seizure ER Course 34-year-old male who presents with seizure last night, history of seizure disorder and noncompliance with medications. Differential: Seizure disorder with noncompliance, electrolyte abnormality, sepsis, head injury or tumor. Doubt sepsis given no concerning history and physical exam findings show no fever or tachycardia. Doubt brain lesion head injury or mass given patient is neurologically intact at baseline at this time Will assess for electrolyte abnormality and load Keppra Patient's testing was reviewed patient to be discharged. Discussed care with family. Laboratory Tests Test 03/19/19 06:43 03/19/19 08:25 White Blood Count 9.2 K/UL (4.8-10.8) Red Blood Count 5.36 M/UL (4.70-6.10) Hemoglobin 14.3 G/DL (14.2-18.0) Hematocrit 44.9 % (42.0-52.0) Mean Corpuscular Volume 84 FL (80-99) Mean Corpuscular Hemoglobin 26.6 PG (27.0-31.0) L Mean Corpuscular Hemoglobin Concent 31.7 G/DL (32.0-36.0) L Red Cell Distribution Width 14.8 % (11.6-14.8) Platelet Count 278 K/UL (150-450) Mean Platelet Volume 6.0 FL (6.5-10.1) L Neutrophils (%) (Auto) 63.1 % (45.0-75.0) Lymphocytes (%) (Auto) 28.5 % (20.0-45.0) Monocytes (%) (Auto) 6.6 % (1.0-10.0) Eosinophils (%) (Auto) 0.7 % (0.0-3.0) Basophils (%) (Auto) 1.1 % (0.0-2.0) Sodium Level 142 MMOL/L (136-145) Potassium Level 4.4 MMOL/L (3.5-5.1) Chloride Level 105 MMOL/L (98-107) Carbon Dioxide Level 19 MMOL/L (21-32) L Anion Gap 18 mmol/L (5-15) H Blood Urea Nitrogen 9 mg/dL (7-18) Creatinine 1.1 MG/DL (0.55-1.30) Estimate Glomerular Filtration Rate > 60 mL/min (>60) Glucose Level 99 MG/DL (74-106) Calcium Level 9.2 MG/DL (8.5-10.1) Troponin I 0.000 ng/mL (0.000-0.056) Acetaminophen Level < 2 MCG/ML (10-30) L Serum Alcohol < 3 mg/dL Urine Color Pale yellow Urine Appearance Clear Urine pH 6 (4.5-8.0) Urine Specific Butterfield 1.020 (1.005-1.035) Urine Protein 2+ (NEGATIVE) H Urine Glucose (UA) Negative (NEGATIVE) Urine Ketones 1+ (NEGATIVE) H Urine Blood 2+ (NEGATIVE) H Urine Nitrite Negative (NEGATIVE) Urine Bilirubin Negative (NEGATIVE) Urine Urobilinogen Normal MG/DL (0.0-1.0) Urine Leukocyte Esterase Negative (NEGATIVE) Urine RBC 2-4 /HPF (0 - 0) H Urine WBC 0-2 /HPF (0 - 0) Urine Squamous Epithelial Cells Few /LPF (NONE/OCC) Urine Bacteria Occasional /HPF (NONE) Urine Mucus Occasional /LPF Urine Opiates Screen Negative (NEGATIVE) Urine Barbiturates Screen Negative (NEGATIVE) Phencyclidine (PCP) Screen Negative (NEGATIVE) Urine Amphetamines Screen Negative (NEGATIVE) Urine Benzodiazepines Screen Negative (NEGATIVE) Urine Cocaine Screen Negative (NEGATIVE) Urine Marijuana (THC) Screen Positive (NEGATIVE) H Lab Results Impression THC positive, otherwise within normal limits EKG Diagnostic Results EKG Time: 06:37 EP Interpretation: Normal sinus rhythm rate of 83 T wave flattening lateral leads Last Vital Signs Date Time Temp Pulse Resp B/P (MAP) Pulse Ox O2 Delivery O2 Flow Rate FiO2 03/19/19 06:18 98.4 105 20 124/67 (86) 98 Room Air Status: worsened Reevaluation Impression Patient care discussed with family at bedside. Patient was to be discharged. Patient stating he was having mild headache came to computer to order Tylenol for patient. However 1 minute later I was notified by the nurse patient was having a seizure. Patient was having ocular deviation to the left, convulsions in all 4 extremities, urinary incontinence, and foaming at the mouth. Patient was given 2 mg IV push Ativan. Patient was kept on the monitor. Patient put on O2. Discussed with family will perform head CT and likely admit for uncontrolled seizures. Disposition: XFER SHT-TRM HOSP Condition: Serious Referrals: NON PHYSICIAN (PCP) Assessment/Plan Assessment/Plan Patient's care discussed with at [facility]. Patient accepted for transfer Rodrick Acevedo M.D. Mar 19, 2019 06:59
[2019-03-19 07:02] LABS: ANION GAP 18 mmol/L (5-15); BLOOD UREA NITROGEN 9 mg/dL (7-18); CALCIUM 9.2 MG/DL (8.5-10.1); CARBON DIOXIDE 19 MMOL/L (21-32); CHLORIDE 105 MMOL/L (98-107); CREATININE 1.1 MG/DL (0.55-1.30); POTASSIUM 4.4 MMOL/L (3.5-5.1); SODIUM 142 MMOL/L (136-145)
[2019-03-19 07:13] LABS: BASOPHILS % (AUTO) 1.1 % (0.0-2.0); EOSINOPHILS % (AUTO) 0.7 % (0.0-3.0); HEMATOCRIT 44.9 % (42.0-52.0); HEMOGLOBIN 14.3 G/DL (14.2-18.0); LYMPHOCYTES % (AUTO) 28.5 % (20.0-45.0); MEAN CORPUSCULAR VOLUME 84 FL (80-99); MONOCYTES % (AUTO) 6.6 % (1.0-10.0); NEUTROPHILS % (AUTO) 63.1 % (45.0-75.0); PLATELET COUNT 278 K/UL (150-450); RED BLOOD COUNT 5.36 M/UL (4.70-6.10); RED CELL DISTRIBUTION WIDTH 14.8 % (11.6-14.8); WHITE BLOOD COUNT 9.2 K/UL (4.8-10.8)
[2019-03-19] MEDS ORDERED: levETIRAcetam 1,000mg/NS100ml 100 ML IVPB ONE (07:45)
[2019-03-19] MEDS ORDERED: LORazepam Inj 2mg/ml 1ml ONE (08:17)
[2019-03-19] MEDS ORDERED: LORazepam Inj 2mg/ml 1ml IV ONE (08:30)
[2019-03-19 08:38] LABS: APPEARANCE,URINE CLEAR; BILIRUBIN, URINE NEGATIVE (NEGATIVE); COLOR,URINE PALE YELLOW; GLUCOSE, URINE (UA) NEGATIVE (NEGATIVE); KETONES,URINE 1+ (NEGATIVE); LEUKOCYTE ESTERASE ,URINE NEGATIVE (NEGATIVE); NITRITE,URINE NEGATIVE (NEGATIVE); PH,URINE 6 (4.5-8.0); PROTEIN,URINE 2+ (NEGATIVE); UROBILINOGEN,URINE NORMAL MG/DL (0.0-1.0)
--- NOTE | 2019-03-19 09:07 | Diagnostic Imaging Report ---
Indications: Seizures Technique: Spiral acquisitions obtained through the brain. Angled axial and coronal 5 x 5 mm slices were reconstructed. Total dose length product 1794 mGycm. CTDI vol(s) 74 mGy. Dose reduction achieved using automated exposure control Comparison: None. Findings: No acute intracranial hemorrhage or edema, mass effect, nor midline shift. Normal price-white differentiation. Normal size ventricles and extra axial CSF spaces. Visualized orbits and sinuses are unremarkable. Intact calvarium. There is nonspecific mild symmetric scalp soft tissue thickening near the vertex Impression: Negative The CT scanner at [facility] is accredited by the [employer] and the scans are performed using protocols designed to limit radiation exposure to as low as reasonably achievable to attain images of sufficient resolution adequate for diagnostic evaluation.
--- NOTE | 2019-03-20 17:04 | Cardiology Report ---
APPROVED REPORT EKG Measurement Heart [id number] Normal sinus rhythm Possible Inferior infarct, age undetermined Abnormal ECG
== END 2019-03-19 13:00 | disposition short-term general hospital (02) ==
LOC: EDBD 06:19 → EMR 06:45
DX: G40.909 Epilepsy, unspecified, not intractable, without status epilepticus (principal); I10 Essential (primary) hypertension; E11.9 Type 2 diabetes mellitus without complications; Z91.14 Patient's other noncompliance with medication regimen
CPT/HCPCS: 36415; 70450; 80048; 80307; 81003; 82962; 84484; 85025; 93005; 96361; 96374; 96375; G0480; J1953; J7030; Z7502; 99285

== ENCOUNTER 2019-05-15 06:10 | Emergency (ER) | payer OTHER ==
[~2019-05-15] VITALS: Ht 188 cm; Wt 99.8 kg
--- NOTE | 2019-05-15 06:24 | NUR ---
ED Nurse Note: pt presents to ED via EMS arrival RA 68 for a seizure. pt does not know how or when it happened, states that he has been compliant with sz meds but that this is his second one this week. per EMS, the sz was witnessed. pt is unable to answer any questions about his sz or events leading up to it. sz precautions are in place. will continue to monitor pt
[2019-05-15 06:29] VITALS: BP 150/100
[2019-05-15] MEDS ORDERED: levETIRAcetam 1,000mg/NS100ml 100 ML IVPB ONE (06:30)
--- NOTE | 2019-05-15 06:30 | NUR ---
ED Nurse Note: not yet able to start line on pt, he keeps moving and flinching. will try again when pt wakes up a little more
--- NOTE | 2019-05-15 06:31 | NUR ---
ED Nurse Note: pt c/o L SINCLAIR px that does not radiate and tongue px. upon inspection there appears to be bite arnett on his tongue Addendum: 05/15/19 at 0644 by QLE ED Nurse Note: pt reports that his Dr keeps switching up the dosages of his keppra
--- NOTE | 2019-05-15 06:59 | NUR ---
ED Nurse Note: per pt's request, called and left voicemail for Leatha, pt's children's mother letting her know that he is at [facility]. Leatha's number: [phone]
--- NOTE | 2019-05-15 07:13 | Emergency Room Report ---
History of Present Illness General Chief Complaint: Seizure Source: Patient Present Illness HPI Patient presents from home with complaints of seizure activity Witnessed by family Patient here reports that he is unsure of his Keppra dosage and has not been taking it over the past several days Denies any vomiting or diarrhea patient has mild headache last seizure was about 1-1/2 months ago Denies any focal weakness denies any visual changes Allergies: Coded Allergies: No Known Allergies (Unverified , 08/05/14) Patient History Past Medical History: see triage record Reviewed Nursing Documentation: PMH: Agreed; PSxH: Agreed Nursing Documentation-PMH Hx Cardiac Problems: No Hx Hypertension: Yes Hx Diabetes: Yes Hx Cancer: No Hx Gastrointestinal Problems: No Hx Neurological Problems: Yes Hx Seizures: Yes Review of Systems All Other Systems: negative except mentioned in HPI Physical Exam Vital Signs Date Time Temp Pulse Resp B/P (MAP) Pulse Ox O2 Delivery O2 Flow Rate FiO2 05/15/19 06:09 93 12 150/100 (117) 98 Room Air Sp02 EP Interpretation: reviewed, normal General Appearance: no apparent distress Head: normocephalic, atraumatic Eyes: bilateral eye PERRL, bilateral eye EOMI ENT: EOM grossly intact Neck: supple, thyroid normal, no meningismus Respiratory: lungs clear, normal breath sounds, no rhonchi Cardiovascular #1: regular rate, rhythm Gastrointestinal: non tender, soft Musculoskeletal: normal inspection Neurologic: alert - Initially somewhat postictal and patient has received Versed in the field otherwise, becoming more oriented throughout his stay Psychiatric: normal inspection Skin: no rash Lymphatic: normal inspection Medical Decision Making Diagnostic Impression: Primary Impression: Epileptic seizure, generalized ER Course Multiple differentials and consideration, including but not limited to neurological, neurosurgical, infectious process Patient's electrolytes at normal levels patient Provided with Keppra through the ER At this time continues to complain of not feeling well Had questionable second seizure and therefore admitted for further inpatient care Please note that at time of admission patient has now refused to be admitted to the hospital He is aware that leaving at this time can lead to worsening symptoms repeat breakthrough seizure and possible Labs Test 05/15/19 06:50 White Blood Count 5.6 K/UL (4.8-10.8) Red Blood Count 5.62 M/UL (4.70-6.10) Hemoglobin 15.2 G/DL (14.2-18.0) Hematocrit 47.6 % (42.0-52.0) Mean Corpuscular Volume 85 FL (80-99) Mean Corpuscular Hemoglobin 27.1 PG (27.0-31.0) Mean Corpuscular Hemoglobin Concent 32.0 G/DL (32.0-36.0) Red Cell Distribution Width 13.1 % (11.6-14.8) Platelet Count 279 K/UL (150-450) Mean Platelet Volume 5.9 FL (6.5-10.1) Neutrophils (%) (Auto) 38.8 % (45.0-75.0) Lymphocytes (%) (Auto) 47.5 % (20.0-45.0) Monocytes (%) (Auto) 11.4 % (1.0-10.0) Eosinophils (%) (Auto) 1.3 % (0.0-3.0) Basophils (%) (Auto) 1.1 % (0.0-2.0) Sodium Level 140 MMOL/L (136-145) Potassium Level 4.4 MMOL/L (3.5-5.1) Chloride Level 105 MMOL/L (98-107) Carbon Dioxide Level 19 MMOL/L (21-32) Anion Gap 16 mmol/L (5-15) Blood Urea Nitrogen 12 mg/dL (7-18) Creatinine 1.2 MG/DL (0.55-1.30) Estimat Glomerular Filtration Rate > 60 mL/min (>60) Glucose Level 105 MG/DL (74-106) Calcium Level 9.2 MG/DL (8.5-10.1) Total Bilirubin 0.2 MG/DL (0.2-1.0) Aspartate Amino Transf (AST/SGOT) 26 U/L (15-37) Alanine Aminotransferase (ALT/SGPT) 37 U/L (12-78) Alkaline Phosphatase 136 U/L (46-116) Total Protein 8.2 G/DL (6.4-8.2) Albumin 3.8 G/DL (3.4-5.0) Globulin 4.4 g/dL Albumin/Globulin Ratio 0.9 (1.0-2.7) EKG Diagnostic Results Rate: normal Rhythm: NSR ST Segments: no acute changes Last Vital Signs Date Time Temp Pulse Resp B/P (MAP) Pulse Ox O2 Delivery O2 Flow Rate FiO2 05/15/19 06:29 93 12 Room Air 05/15/19 06:29 150/100 98 Status: improved Disposition: AGAINST MEDICAL ADVICE Condition: Improved Referrals: NOT CHOSEN IPA/,REFERRING (PCP) David Page DO May 15, 2019 07:13
--- NOTE | 2019-05-15 07:16 | NUR ---
ED Nurse Note: Pt in bed asleep, vss. Keppra infused. IV site intact and patent. pt looks comfortable. No pending orders at this time.
--- NOTE | 2019-05-15 07:16 | NUR ---
HAND-OFF: Report given to BETTY Cabezas.
[2019-05-15 07:17] LABS: BASOPHILS % (AUTO) 1.1 % (0.0-2.0); EOSINOPHILS % (AUTO) 1.3 % (0.0-3.0); HEMATOCRIT 47.6 % (42.0-52.0); HEMOGLOBIN 15.2 G/DL (14.2-18.0); LYMPHOCYTES % (AUTO) 47.5 % (20.0-45.0); MEAN CORPUSCULAR VOLUME 85 FL (80-99); MONOCYTES % (AUTO) 11.4 % (1.0-10.0); NEUTROPHILS % (AUTO) 38.8 % (45.0-75.0); PLATELET COUNT 279 K/UL (150-450); RED BLOOD COUNT 5.62 M/UL (4.70-6.10); RED CELL DISTRIBUTION WIDTH 13.1 % (11.6-14.8); WHITE BLOOD COUNT 5.6 K/UL (4.8-10.8)
[2019-05-15 07:21] VITALS: BP 123/71
[2019-05-15 07:21] LABS: ANION GAP 16 mmol/L (5-15); BLOOD UREA NITROGEN 12 mg/dL (7-18); CALCIUM 9.2 MG/DL (8.5-10.1); CARBON DIOXIDE 19 MMOL/L (21-32); CHLORIDE 105 MMOL/L (98-107); CREATININE 1.2 MG/DL (0.55-1.30); POTASSIUM 4.4 MMOL/L (3.5-5.1); SODIUM 140 MMOL/L (136-145)
[2019-05-15 07:25] LABS: ALANINE AMINOTRANSFERASE 37 U/L (12-78); ALBUMIN 3.8 G/DL (3.4-5.0); ALBUMIN/GLOBULIN RATIO 0.9 (1.0-2.7); ALKALINE PHOSPHATASE 136 U/L (46-116); ASPARTATE AMINO TRANSFERASE 26 U/L (15-37); BILIRUBIN,TOTAL 0.2 MG/DL (0.2-1.0)
--- NOTE | 2019-05-15 08:16 | NUR ---
ED Nurse Note: Spoke with amilcar case supervisor from [facility] [place]
[2019-05-15 08:43] VITALS: BP 124/84
--- NOTE | 2019-05-15 10:09 | NUR ---
ED Nurse Note: Telephone report given to Vika RN for continuity of care.
--- NOTE | 2019-05-15 10:14 | NUR ---
AMA: SEE AMA FORM.
--- NOTE | 2019-05-15 10:15 | NUR ---
ED Nurse Note: ermd at bedside, pt refuses to be admitted per pt "I have a one year old daughter i need to look over i cant stay here". Pt signed AMA.
[2019-05-15 10:16] VITALS: BP 127/89
== END 2019-05-15 10:14 | disposition home or self-care (01) ==
LOC: EDBD 06:10 → EMR 06:40 → 4E 08:15 → UNDOADMOB 08:15 → EDBEDREQ 08:40
DX: G40.409 Other generalized epilepsy and epileptic syndromes, not intractable, without status epilepticus (principal); Z79.899 Other long term (current) drug therapy; I10 Essential (primary) hypertension; E11.9 Type 2 diabetes mellitus without complications
CPT/HCPCS: 36415; 80053; 82962; 85025; 93005; 96374; J1953; Z7502; 99283

== ENCOUNTER 2019-07-24 07:40 | Emergency (ER) | payer OTHER ==
[~2019-07-24] VITALS: Ht 185.4 cm; Wt 90.7 kg
[2019-07-24 07:40] VITALS: BP 128/70
[2019-07-24] MEDS ORDERED: levETIRAcetam 1,000mg/NS100ml 100 ML IVPB ONE (07:45)
--- NOTE | 2019-07-24 07:45 | NUR ---
ED Nurse Note: Pt from home and brought in by RA 29 due to seizure activity x 3 episodes today and witnessed by his family members. Pt was reported to be combative and versed 5mg IM was given by EMS. No apparent oral or head trauma. Noted urinary incontinence. Pt came in awake but uncooperative. No respiratory distress.
--- NOTE | 2019-07-24 07:50 | Emergency Room Report ---
History of Present Illness General Chief Complaint: Seizure Source: Medical Record, EMS Present Illness HPI Disclaimer: Please note that this report is being documented using DRAGON technology. This can lead to erroneous entry secondary to incorrect interpretation by the dictating instrument. HPI: 34-year-old male history of seizure disorder and history of medication noncompliance presents for evaluation after generalized tonic-clonic seizures. Family notes 2 seizures at home which aborted spontaneously. EMS witnessed a generalized tonic-clonic seizure en route. He was given Versed which aborted the seizure. He is somnolent and incontinent of urine. No oral trauma noted. He has a long history of medication noncompliance. He is supposed to be taking Keppra for seizure disorder but EMS states over multiple trips he does not take his medication preferring to use herbal medications. Patient cannot provide any history at this time. He is resting comfortably and protecting his airway. PMH: Seizure disorder PSH: Chart reviewed Allergies: Chart reviewed Social Hx: Unknown Allergies: Coded Allergies: No Known Allergies (Unverified , 08/05/14) COVID-19 Screening Contact w/high risk pt: No Recent Travel to affected area: No Experienced COVID-19 symptoms?: No Nursing Documentation-PMH Past Medical History: No History, Except For Hx Cardiac Problems: No Hx Hypertension: Yes Hx Diabetes: Yes Hx Cancer: No Hx Gastrointestinal Problems: No Hx Neurological Problems: Yes Hx Seizures: Yes Review of Systems All Other Systems: limited - Due to clinical condition Physical Exam Vital Signs Date Time Temp Pulse Resp B/P (MAP) Pulse Ox O2 Delivery O2 Flow Rate FiO2 07/24/19 07:35 98.6 120 18 126/62 (83) 98 Room Air General: Sleeping comfortably. Sonorous respirations. HEENT: NC/AT. EOMI. pupils are 3 mm and reactive to light bilaterally. No oral trauma. Neck: Supple, trachea midline Chest Wall: No tenderness, no deformity Cardiovascular: RRR. S1 and S2 normal. No murmur appreciated Resp: Normal work of breathing. No cough, wheezing or crackles appreciated Abdomen: Abdomen is soft, nondistended. Nontender Skin: Intact. No abrasions, laceration or rash over the exposed skin MSK: Normal tone and bulk. Moving all extremities. No obvious deformity. Neuro: Somnolent, sonorous respirations. Arousable and intermittently combative with staff Medical Decision Making Diagnostic Impression: Primary Impression: Uncontrolled seizures ER Course This a 34-year-old male with history of poorly controlled seizure disorder and history of medication noncompliance presenting for generalized tonic-clonic seizures. Multiple ER visits for same in the past. Differential includes was not limited to medication noncompliance, breakthrough seizure, toxic ingestion, dehydration, metabolic abnormality, electrolyte abnormality to name a few. We will draw broad labs and loaded with Keppra. Will monitor for improvement. No indication for CT imaging at this time. Can advance work-up as needed. Laboratory Tests Test 07/24/19 08:50 White Blood Count 10.7 K/UL (4.8-10.8) Red Blood Count 5.63 M/UL (4.70-6.10) Hemoglobin 15.1 G/DL (14.2-18.0) Hematocrit 45.8 % (42.0-52.0) Mean Corpuscular Volume 81 FL (80-99) Mean Corpuscular Hemoglobin 26.9 PG (27.0-31.0) L Mean Corpuscular Hemoglobin Concent 33.0 G/DL (32.0-36.0) Red Cell Distribution Width 13.6 % (11.6-14.8) Platelet Count 276 K/UL (150-450) Mean Platelet Volume 5.8 FL (6.5-10.1) L Neutrophils (%) (Auto) 77.6 % (45.0-75.0) H Lymphocytes (%) (Auto) 13.0 % (20.0-45.0) L Monocytes (%) (Auto) 7.8 % (1.0-10.0) Eosinophils (%) (Auto) 0.2 % (0.0-3.0) Basophils (%) (Auto) 1.4 % (0.0-2.0) Urine Color Pale yellow Urine Appearance Clear Urine pH 5 (4.5-8.0) Urine Specific [place] 1.020 (1.005-1.035) Urine Protein 2+ (NEGATIVE) H Urine Glucose (UA) Negative (NEGATIVE) Urine Ketones Negative (NEGATIVE) Urine Blood 3+ (NEGATIVE) H Urine Nitrite Negative (NEGATIVE) Urine Bilirubin Negative (NEGATIVE) Urine Urobilinogen Normal MG/DL (0.0-1.0) Urine Leukocyte Esterase Negative (NEGATIVE) Urine RBC 2-4 /HPF (0 - 0) H Urine WBC 0-2 /HPF (0 - 0) Urine Squamous Epithelial Cells Occasional /LPF Urine Bacteria Occasional /HPF (NONE) Urine Opiates Screen Negative (NEGATIVE) Urine Barbiturates Screen Negative (NEGATIVE) Phencyclidine (PCP) Screen Negative (NEGATIVE) Urine Amphetamines Screen Negative (NEGATIVE) Urine Benzodiazepines Screen Positive (NEGATIVE) H Urine Cocaine Screen Negative (NEGATIVE) Urine Marijuana (THC) Screen Positive (NEGATIVE) H EKG Diagnostic Results EKG Time: 09:05 Rate: normal Rhythm: NSR ST Segments: no acute changes Other Impression Sinus rhythm, normal axis, normal intervals, no ST segment changes Rhythm Strip Diag. Results Rhythm Strip Time: 09:05 EP Interpretation: yes Rate: 70s Rhythm: NSR, no PVC's, no ectopy Reevaluation Time: 10:55 Last Vital Signs Date Time Temp Pulse Resp B/P (MAP) Pulse Ox O2 Delivery O2 Flow Rate FiO2 07/24/19 07:35 98.6 120 18 126/62 (83) 98 Room Air Reevaluation Impression Patient became combative with staff and required restraints briefly but is now improved. He is now awake, alert, no longer combative and mentating appropriately. Ambulating with a steady gait. Labs have been within normal limits aside from the chemistry which was hemolyzed. Patient refused to redraw. He states he is now taking his medication but using an herbal supplement for control and states he has not had a seizure in 3 months. I refilled his Keppra medications and encouraged him to start taking it as prescribed. He can follow-up with his PMD. Sister is here to take him home. Stable for outpatient follow-up. Understands reasons to return to the emergency department. Disposition: HOME, SELF-CARE Condition: Improved Scripts Levetiracetam (KEPPRA) 500 Mg Tablet 500 MG ORAL EVERY 12 HOURS, #60 TAB 0 Refills Prov: Carlito Wiley MD 07/24/19 Carlito Wiley MD Jul 24, 2019 07:50
--- NOTE | 2019-07-24 07:53 | NUR ---
ED Nurse Note: Pt still being restless and uncooperative upon arrival. Pt awake but non verbal. Dr Wiley was notified.
[2019-07-24] MEDS ORDERED: LORazepam Inj 2mg/ml 1ml IV ONE (08:00)
--- NOTE | 2019-07-24 08:23 | NUR ---
ED Nurse Note: Pt still very uncooperaive and moving a lot. RN unable to start an IV access and draw blood. Dr Wiley was notified. Seizure precautions: Side rails up with bed locked in lowest position.
--- NOTE | 2019-07-24 08:55 | NUR ---
ED Nurse Note: Collected blood/urine then sent to lab.
[2019-07-24 09:09] LABS: BASOPHILS % (AUTO) 1.4 % (0.0-2.0); EOSINOPHILS % (AUTO) 0.2 % (0.0-3.0); HEMATOCRIT 45.8 % (42.0-52.0); HEMOGLOBIN 15.1 G/DL (14.2-18.0); MEAN CORPUSCULAR VOLUME 81 FL (80-99); MONOCYTES % (AUTO) 7.8 % (1.0-10.0); NEUTROPHILS % (AUTO) 77.6 % (45.0-75.0); PLATELET COUNT 276 K/UL (150-450); RED BLOOD COUNT 5.63 M/UL (4.70-6.10); RED CELL DISTRIBUTION WIDTH 13.6 % (11.6-14.8); WHITE BLOOD COUNT 10.7 K/UL (4.8-10.8)
[2019-07-24 09:20] LABS: APPEARANCE,URINE CLEAR; BILIRUBIN, URINE NEGATIVE (NEGATIVE); COLOR,URINE PALE YELLOW; GLUCOSE, URINE (UA) NEGATIVE (NEGATIVE); KETONES,URINE NEGATIVE (NEGATIVE); LEUKOCYTE ESTERASE ,URINE NEGATIVE (NEGATIVE); NITRITE,URINE NEGATIVE (NEGATIVE); PH,URINE 5 (4.5-8.0); PROTEIN,URINE 2+ (NEGATIVE); UROBILINOGEN,URINE NORMAL MG/DL (0.0-1.0)
--- NOTE | 2019-07-24 09:34 | NUR ---
ED Nurse Note: Blood was hemolyzed . RN unable to draw blood from pt. Mary from lab called.
[2019-07-24 09:40] VITALS: BP 118/76
--- NOTE | 2019-07-24 09:44 | NUR ---
ED Nurse Note: Mary at the bed side for blood draw and pt refused and still being uncooperative. Dr Wiley notified.
--- NOTE | 2019-07-24 10:02 | NUR ---
ED Nurse Note: Pt is more alert and awake at this time. No acute distress. Sister in the waiting room and Dr Wiley notified.
[2019-07-24] MEDS ORDERED: KEPPRA500 M4 ORAL ×2 (10:13)
[2019-07-24 10:53] VITALS: BP 122/84
--- NOTE | 2019-07-24 10:53 | NUR ---
ER DISCHARGE NOTE: Patient is cleared to be discharged per ERMD, pt is aox4, on room air, with stable vital signs. pt was given dc and prescription instructions, pt was able to verbalize understanding, pt id band and iv site removed without complications. pt is able to ambulate with steady gait. pt took all belongings and left with his sister.
== END 2019-07-24 10:53 | disposition home or self-care (01) ==
LOC: EDBD 07:40 → EMR 07:55
DX: R56.9 Unspecified convulsions (principal); I10 Essential (primary) hypertension; E11.9 Type 2 diabetes mellitus without complications
CPT/HCPCS: 36415; 80307; 81003; 82962; 85025; 93005; 96374; 96375; J1953; Z7502; 99284

== ENCOUNTER 2019-07-28 07:24 | Emergency (ER) | payer OTHER ==
[~2019-07-28] VITALS: Ht 177.8 cm; Wt 81.6 kg
[2019-07-28] MEDS ORDERED: KEPPRA LIQ100 MG/1 M ORAL (07:25)
[2019-07-28 07:36] VITALS: BP 114/78
--- NOTE | 2019-07-28 07:41 | Emergency Room Report ---
History of Present Illness General Chief Complaint: Seizure Source: Patient, EMS Present Illness HPI Disclaimer: Please note that this report is being documented using DRAGON technology. This can lead to erroneous entry secondary to incorrect interpretation by the dictating instrument. HPI: 34-year-old male history of seizure disorder and history of medication noncompliance presents for evaluation after generalized tonic-clonic seizures. Patient was in the emergency department several days ago with similar presentation. Today he had another witnessed generalized tonic-clonic seizure by family that aborted spontaneously. He is now awake and alert complaining of a headache and fatigue. Returned to his neurologic baseline. He states that he did not take his Keppra today or yesterday. He states it sometimes makes his head hurt and makes him lightheaded. He has been trying to treat his seizure disorder with herbal medication. He denies any urinary continence this time. Denies any tongue biting. Denies any recent drug or alcohol use. No reported head trauma PMH: Seizure disorder PSH: Chart reviewed Allergies: Chart reviewed Social Hx: Unknown Allergies: Coded Allergies: No Known Allergies (Unverified , 08/05/14) COVID-19 Screening Contact w/high risk pt: No Recent Travel to affected area: No Experienced COVID-19 symptoms?: No Nursing Documentation-PMH Past Medical History: No History, Except For Hx Cardiac Problems: No Hx Hypertension: Yes Hx Diabetes: Yes Hx Cancer: No Hx Gastrointestinal Problems: No Hx Neurological Problems: Yes Hx Seizures: Yes Review of Systems All Other Systems: negative except mentioned in HPI Physical Exam Vital Signs Date Time Temp Pulse Resp B/P (MAP) Pulse Ox O2 Delivery O2 Flow Rate FiO2 07/28/19 07:19 98.2 98 Room Air 07/28/19 07:36 90 20 114/78 General: Awake and alert, no acute distress HEENT: NC/AT. EOMI. PERRLA. No nystagmus. No tongue biting or oral trauma Cardiovascular: RRR. S1 and S2 normal. No murmur appreciated Resp: Normal work of breathing. No cough, wheezing or crackles appreciated Abdomen: Abdomen is soft, nondistended. Nontender Skin: Intact. No abrasions, laceration or rash over the exposed skin MSK: Normal tone and bulk. Moving all extremities. No obvious deformity. Neuro: Awake and alert. Mentating appropriately. Moving all extremities. Strength and sensation is full bilaterally. Medical Decision Making Diagnostic Impression: Primary Impression: Noncompliance with medication regimen Additional Impression: Uncontrolled seizures ER Course 34-year-old male history of seizure disorder noncompliant with Keppra therapy presents for evaluation after generalized tonic-clonic seizure at home. Patient is returned to neurologic baseline. We will continue to monitor and draw basic labs. Will load with IV Keppra. No indication for CT imaging at this time. Laboratory Tests Test 07/28/19 07:55 White Blood Count 6.0 K/UL (4.8-10.8) Red Blood Count 5.58 M/UL (4.70-6.10) Hemoglobin 15.1 G/DL (14.2-18.0) Hematocrit 45.7 % (42.0-52.0) Mean Corpuscular Volume 82 FL (80-99) Mean Corpuscular Hemoglobin 27.0 PG (27.0-31.0) Mean Corpuscular Hemoglobin Concent 33.0 G/DL (32.0-36.0) Red Cell Distribution Width 13.3 % (11.6-14.8) Platelet Count 246 K/UL (150-450) Mean Platelet Volume 6.1 FL (6.5-10.1) L Neutrophils (%) (Auto) 43.6 % (45.0-75.0) L Lymphocytes (%) (Auto) 46.1 % (20.0-45.0) H Monocytes (%) (Auto) 7.3 % (1.0-10.0) Eosinophils (%) (Auto) 1.4 % (0.0-3.0) Basophils (%) (Auto) 1.6 % (0.0-2.0) Sodium Level 139 MMOL/L (136-145) Potassium Level 4.2 MMOL/L (3.5-5.1) Chloride Level 103 MMOL/L (98-107) Carbon Dioxide Level 21 MMOL/L (21-32) Anion Gap 16 mmol/L (5-15) H Blood Urea Nitrogen 12 mg/dL (7-18) Creatinine 1.2 MG/DL (0.55-1.30) Estimated Glomerular Filtration Rate > 60 mL/min (>60) Glucose Level 106 MG/DL (74-106) Calcium Level 9.5 MG/DL (8.5-10.1) Total Bilirubin 0.2 MG/DL (0.2-1.0) Aspartate Amino Transferase (AST) 30 U/L (15-37) Alanine Aminotransferase (ALT) 31 U/L (12-78) Alkaline Phosphatase 129 U/L (46-116) H Total Protein 7.8 G/DL (6.4-8.2) Albumin 3.9 G/DL (3.4-5.0) Globulin 3.9 g/dL Albumin/Globulin Ratio 1.0 (1.0-2.7) Serum Alcohol < 3 mg/dL EKG Diagnostic Results EKG Time: 07:42 Rate: normal Rhythm: NSR ST Segments: no acute changes Other Impression Sinus rhythm, normal axis, normal intervals, no ST segment changes. Rhythm Strip Diag. Results Rhythm Strip Time: 07:42 EP Interpretation: yes Rate: 84 Rhythm: NSR, no PVC's, no ectopy Reevaluation Time: 08:59 Last Vital Signs Date Time Temp Pulse Resp B/P (MAP) Pulse Ox O2 Delivery O2 Flow Rate FiO2 07/28/19 07:36 98.2 90 20 114/78 100 Room Air Reevaluation Impression Labs have returned within normal limits. Patient remains at his neurologic baseline. He is not been compliant with his Keppra therapy. We will again reprint his prescriptions. I strongly encouraged him to take his medications as prescribed to prevent further seizures and explained to him that he is not to drive, operate any heavy machinery or perform any activities that could result in significant injury should he have another seizure. Will discharge to follow-up with his PMD and neurology. Family is coming to pick him up. Contacted [facility] to suspend his license given his noncompliance with his medical regimen and recurrent seizures. Disposition: HOME, SELF-CARE Condition: Stable Scripts Levetiracetam (KEPPRA) 1,000 Mg Tablet 1000 MG ORAL BID for 30 Days, #60 TAB 0 Refills Prov: Carlito Wiley MD 07/28/19 Referrals: [facility]ERR[facility] (PCP) Carlito Wiley MD Jul 28, 2019 07:41
[2019-07-28] MEDS ORDERED: levETIRAcetam 1,000mg/NS100ml 100 ML IVPB ONE (07:45)
[2019-07-28 08:07] LABS: BASOPHILS % (AUTO) 1.6 % (0.0-2.0); EOSINOPHILS % (AUTO) 1.4 % (0.0-3.0); HEMATOCRIT 45.7 % (42.0-52.0); HEMOGLOBIN 15.1 G/DL (14.2-18.0); LYMPHOCYTES % (AUTO) 46.1 % (20.0-45.0); MEAN CORPUSCULAR VOLUME 82 FL (80-99); MONOCYTES % (AUTO) 7.3 % (1.0-10.0); NEUTROPHILS % (AUTO) 43.6 % (45.0-75.0); PLATELET COUNT 246 K/UL (150-450); RED BLOOD COUNT 5.58 M/UL (4.70-6.10); RED CELL DISTRIBUTION WIDTH 13.3 % (11.6-14.8)
[2019-07-28 08:24] LABS: ANION GAP 16 mmol/L (5-15); BLOOD UREA NITROGEN 12 mg/dL (7-18); CALCIUM 9.5 MG/DL (8.5-10.1); CARBON DIOXIDE 21 MMOL/L (21-32); CHLORIDE 103 MMOL/L (98-107); CREATININE 1.2 MG/DL (0.55-1.30); POTASSIUM 4.2 MMOL/L (3.5-5.1); SODIUM 139 MMOL/L (136-145)
[2019-07-28 08:30] LABS: ALANINE AMINOTRANSFERASE 31 U/L (12-78); ALBUMIN 3.9 G/DL (3.4-5.0); ALKALINE PHOSPHATASE 129 U/L (46-116); ASPARTATE AMINO TRANSFERASE 30 U/L (15-37); BILIRUBIN,TOTAL 0.2 MG/DL (0.2-1.0)
[2019-07-28] MEDS ORDERED: KEPPRA1000 MG ORAL (08:43)
[2019-07-28 09:21] VITALS: BP 115/66
[2019-07-28 09:36] VITALS: BP 125/79
[2019-07-28 10:01] LABS: APPEARANCE,URINE CLEAR; BILIRUBIN, URINE NEGATIVE (NEGATIVE); COLOR,URINE PALE YELLOW; GLUCOSE, URINE (UA) NEGATIVE (NEGATIVE); KETONES,URINE 1+ (NEGATIVE); LEUKOCYTE ESTERASE ,URINE NEGATIVE (NEGATIVE); NITRITE,URINE NEGATIVE (NEGATIVE); PH,URINE 5 (4.5-8.0); PROTEIN,URINE 2+ (NEGATIVE); UROBILINOGEN,URINE NORMAL MG/DL (0.0-1.0)
== END 2019-07-28 09:36 | disposition home or self-care (01) ==
LOC: EDBD 07:24 → EMR 07:37
DX: G40.909 Epilepsy, unspecified, not intractable, without status epilepticus (principal); Z91.14 Patient's other noncompliance with medication regimen; R51 Headache; R53.83 Other fatigue; E11.9 Type 2 diabetes mellitus without complications; I10 Essential (primary) hypertension
CPT/HCPCS: 36415; 80053; 80307; 81003; 82962; 85025; 93005; 96374; G0480; J1953; Z7502; 99284

== ENCOUNTER 2019-07-31 01:12 | Emergency (ER) | payer OTHER ==
[2019-07-31] VITALS (8 sets, daily range): BP systolic 118–147; BP diastolic 78–103
[~2019-07-31] VITALS: Ht 185.4 cm; Wt 81.6 kg
[~2019-07-31 01:12] MED LIST changes: +KEPPRA LIQ100 MG/1 M ORAL; +KEPPRA1000 MG ORAL
--- NOTE | 2019-07-31 01:15 | NUR ---
ED Nurse Note: Patient gonzalo tin by ambulance, RA 70, with complaints of recurrent seizure. Will continue to monitor for discharge.
--- NOTE | 2019-07-31 01:23 | Emergency Room Report ---
History of Present Illness General Chief Complaint: Seizure Source: Patient, Medical Record, EMS Present Illness HPI This is a 34-year-old male well-known to EMS in this department. He has a history of seizure. He presents with chief complaint of seizure. Had 2 seizure that lasted a total of about 6-minute total. He had or trauma. No incontinence of urine. Sister called 911. Per EMS he is well-known to them. They have been there multiple times. Patient has not taken his Keppra for the last 2 days. He was very postictal. He received 5 mg Versed IM. He is back to baseline now. Denies any head trauma. No nausea no vomiting. Similar presentation in the past. His Keppra was increased to thousand milligrams twice a day. He has some but not taking his medication. Allergies: Coded Allergies: No Known Allergies (Unverified , 08/05/14) COVID-19 Screening Contact w/high risk pt: No Recent Travel to affected area: No Experienced COVID-19 symptoms?: No Patient History Past Medical History: see triage record, old chart reviewed, seizures Past Surgical History: none Pertinent Family History: none Social History: Reports: drug use Immunizations: other Reviewed Nursing Documentation: PMH: Agreed; PSxH: Agreed Nursing Documentation-PMH Past Medical History: No History, Except For Hx Cardiac Problems: No Hx Hypertension: Yes Hx Diabetes: Yes Hx Cancer: No Hx Gastrointestinal Problems: No Hx Neurological Problems: Yes Hx Seizures: Yes Review of Systems Eye: Denies: eye pain, blurred vision ENT: Denies: ear pain, nose congestion, throat swelling Respiratory: Denies: cough, shortness of breath Cardiovascular: Denies: chest pain, palpitations Gastrointestinal: Denies: abdominal pain, diarrhea, nausea, vomiting Musculoskeletal: Denies: back pain, joint pain Skin: Denies: rash Neurological: Denies: headache, numbness Endocrine: Denies: increased thirst, increased urine Hematologic/Lymphatic: Denies: easy bruising All Other Systems: negative except mentioned in HPI Physical Exam Vital Signs Date Time Temp Pulse Resp B/P (MAP) Pulse Ox O2 Delivery O2 Flow Rate FiO2 07/31/19 01:13 98.2 100 18 147/80 (102) 98 Room Air Vitals normal Sp02 EP Interpretation: reviewed, normal General Appearance: well appearing, no apparent distress, alert Head: normocephalic, atraumatic Eyes: bilateral eye PERRL, bilateral eye EOMI ENT: hearing grossly normal, normal pharynx, other - Tongue abrasion at the tip on left side Neck: full range of motion, supple, no meningismus Respiratory: chest non-tender, lungs clear, normal breath sounds Cardiovascular #1: regular rate, rhythm, no murmur Gastrointestinal: normal bowel sounds, non tender, no mass, no organomegaly, no bruit, non-distended Musculoskeletal: back normal, normal range of motion, gait/station normal Psychiatric: mood/affect normal Medical Decision Making Diagnostic Impression: Primary Impression: Epileptic seizure, generalized Additional Impression: Noncompliance with medication regimen ER Course Patient presents with seizure secondary to noncompliance with medication. Keppra loaded here. I see no need for blood work or CT scan. Patient is back to baseline. Will discharge home after medication. Patient said that he does not drive. I see no need for DMV report. Last Vital Signs Date Time Temp Pulse Resp B/P (MAP) Pulse Ox O2 Delivery O2 Flow Rate FiO2 07/31/19 01:13 98.2 100 18 147/80 (102) 98 Room Air Status: improved Disposition: HOME, SELF-CARE Condition: Stable Patient Instructions: Seizure, Adult Additional Instructions: Take your Keppra. Follow-up with your doctor in 7 days. No driving until cleared by neurologist. Return if worse. Mal Murray MD Jul 31, 2019 01:23
[2019-07-31] MEDS: levETIRAcetam 1,000mg/NS100ml 100 ML IVPB ONE ×3 (01:24→03:19)
--- NOTE | 2019-07-31 01:25 | NUR ---
ED Nurse Note: Patient combative and unwilling to allow IV start for anti-seizure medication administration. ERMD consulted.
--- NOTE | 2019-07-31 01:30 | NUR ---
ED Nurse Note: Patient placed on stable attendant with bed in lowest position and both side rails up. Vital signs within normal range. Will continue to monitor.
--- NOTE | 2019-07-31 01:40 | NUR ---
ED Nurse Note: Patient rendered PO medication due to IV refusal, Patient rendered discharge instructions. Will consult patient's family member for ride home.
--- NOTE | 2019-07-31 01:45 | NUR ---
ED Nurse Note: Patient rendered number to his sister, Silvana Ocasio, for orange picker however no one answered. Message was left. Will monitor patient for discharge. The number given was [phone].
--- NOTE | 2019-07-31 02:10 | NUR ---
ED Nurse Note: Patient's sister called again. Additional message left for return call. Will continue to monitor.
--- NOTE | 2019-07-31 02:11 | NUR ---
ED Nurse Note: Patient experienced another seizure. patient found on floor, seizing for 1 minute and 30 seconds, with back and forth motion, with sounds and saliva coming from his mouth. Patient head held in safety position, while patient was on his side until conclusion of seizure. Patient helped back to bed by 3 RN's. Security contacted as patient increased aggression and unwillingness to cooperate during [id number] state. ERMD informed.
[2019-07-31] MEDS ORDERED: LORazepam Inj 2mg/ml 1ml IV ONE (02:15)
[2019-07-31] MEDS ORDERED: levETIRAcetam 500mg/NS100ml 100 ML IVPB ONE (02:15)
--- NOTE | 2019-07-31 02:30 | NUR ---
ED Nurse Note: Patient placed on soft restraints due to continued abusive behavior, and talk therapy initiated. Patient was still unwilling to comply to IV start and IV medication administration of Anti-seizure medication. ERMd consulted.
[2019-07-31] MEDS ORDERED: LORazepam Inj 2mg/ml 1ml ONE ×2 (02:36→02:56)
--- NOTE | 2019-07-31 02:45 | NUR ---
ED Nurse Note: 3 RN's at bedside, 1 [employer] security at bedside attempting to subdue patient because of continued erratic behavior, attempting to jump out of bed and knock bed over. ERMD informed. Hard restraints ordered.
[2019-07-31] MEDS ORDERED: LORazepam Inj 2mg/ml 1ml IM ONE ×2 (03:00→03:30)
--- NOTE | 2019-07-31 03:45 | NUR ---
ED Nurse Note: Patient unable/unwilling to cooperate to complete CT of head. Patient is mildly combative and expresses desire to sleep on his side preventing him from achieving CT image.
--- NOTE | 2019-07-31 04:59 | NUR ---
ED Nurse Note: Patient is currently sleeping soundly with no s/s of acute distress. Vital signs within normal range and documented, Will continue to monitor for discharge.
--- NOTE | 2019-07-31 05:29 | NUR ---
ED Nurse Note: received report from Monica HERNÁNDEZ. Pt is calm and sleeping. vss, yakov, on monitor. will continue to monitor patient.
--- NOTE | 2019-07-31 06:15 | NUR ---
ED Nurse Note: attempted to call the sister for DC. Left a voicemail. Will attempt again at a later time
--- NOTE | 2019-07-31 09:36 | NUR ---
Pt's sister was called and voicemail was left. Sisters phone # [phone]
--- NOTE | 2019-07-31 10:36 | NUR ---
ER DISCHARGE NOTE: Patient is cleared to be discharged per ERMD, pt is aox4, on room air, with stable vital signs. pt was given dc and prescription instructions, pt id band. pt is able to ambulate with steady gait. pt took all belongings. Pt offered bus voucher but refused. Pt offered scrub pants but refused. Pt refusing to go. Security present to escort patient.
== END 2019-07-31 10:38 | disposition home or self-care (01) ==
LOC: EDBD 01:12 → EDUNIT# 01:12 → EMR 01:45
DX: G40.909 Epilepsy, unspecified, not intractable, without status epilepticus (principal); Z91.14 Patient's other noncompliance with medication regimen; I10 Essential (primary) hypertension; E11.9 Type 2 diabetes mellitus without complications; S00.512A Abrasion of oral cavity, initial encounter; X58.XXXA Exposure to other specified factors, initial encounter; Y92.9 Unspecified place or not applicable
CPT/HCPCS: 80299; 96372; 96374; 96375; J1953; Z7502; 99284

== ENCOUNTER 2019-09-28 09:34 | Emergency (ER) | payer OTHER ==
[~2019-09-28] VITALS: Ht 177.8 cm; Wt 90.7 kg
[2019-09-28 09:34] VITALS: BP 130/95
--- NOTE | 2019-09-28 09:56 | Emergency Room Report ---
History of Present Illness General Chief Complaint: Seizure Source: Patient Present Illness HPI Disclaimer: Please note that this report is being documented using DRAGON technology. This can lead to erroneous entry secondary to incorrect interpretation by the dictating instrument. HPI: 34-year-old male with history of seizure disorder substance abuse presents for evaluation after generalized tonic-clonic seizure. Witnessed by family at home. The patient had 2 generalized tonic-clonic seizures today lasting approximately 3 minutes each. The second seizure happened while the patient was in the kitchen fell from standing striking the back of his head. He was postictal when EMS found him though improved on route. He is awake though confused. Complaining of a headache. Moving all extremities. According to EMS family stated the patient was previously on Keppra but no longer taking it. He has a history of noncompliance and substance abuse. PMH: Seizure disorder, substance abuse PSH: Reviewed Allergies: None reported Social Hx: Substance abuse Allergies: Coded Allergies: No Known Allergies (Unverified , 08/05/14) COVID-19 Screening Contact w/high risk pt: No Recent Travel to affected area: No Experienced COVID-19 symptoms?: No COVID-19 Testing performed HIGH SCHOOL ACADEMIC COACH: No Nursing Documentation-PMH Past Medical History: No History, Except For Hx Cardiac Problems: No - seizure Hx Hypertension: Yes Hx Diabetes: Yes Hx Cancer: No Hx Gastrointestinal Problems: No Hx Neurological Problems: Yes Hx Seizures: Yes Review of Systems All Other Systems: limited - Patient confused Physical Exam Vital Signs Date Time Temp Pulse Resp B/P (MAP) Pulse Ox O2 Delivery O2 Flow Rate FiO2 09/28/19 09:27 98.1 90 16 130/95 (107) 99 Room Air General: Awake, somewhat confused, no acute distress HEENT: NC/AT. EOMI. PERRLA. No nystagmus Cardiovascular: RRR. S1 and S2 normal. No murmur appreciated Resp: Normal work of breathing. No cough, wheezing or crackles appreciated Abdomen: Abdomen is soft, nondistended. Nontender Skin: Intact. No abrasions, laceration or rash over the exposed skin MSK: Normal tone and bulk. Moving all extremities. No obvious deformity. Neuro: Awake, confused, moving all extremities. Medical Decision Making Diagnostic Impression: Primary Impression: Seizure Additional Impression: Elevated LFTs ER Course 34-year-old male history of known seizure disorder presents for evaluation of generalized tonic-clonic seizure. Reported head injury earlier today. Ordered broad labs, CT scan of the head and loaded with Keppra. CT scan unremarkable; no evidence of intracranial injury. Labs have returned within normal limits aside from slightly elevated liver function studies. Patient was loaded with Keppra. Received IV fluids. He was monitored in the emergency department is now awake and alert answering questions appropriately. He states he was recently admitted to [facility] several weeks ago after a prolonged seizure but was only given 10 days worth of Keppra. He ran out last week. Denies any recent illness or current complaints aside from a slight headache which he states is typical of his postictal state. We will follow-up as an outpatient for his elevated liver function studies. No other complaints at this time and otherwise feeling well would like to return home. He has called his family to come pick him up. We will follow-up with his neurologist and I have refilled his Keppra prescription. Discussed reasons to return to the emergency department. He understands and agrees with this treatment plan. Laboratory Tests Test 09/28/19 09:47 09/28/19 10:19 White Blood Count 12.9 K/UL (4.8-10.8) H Red Blood Count 5.22 M/UL (4.70-6.10) Hemoglobin 14.1 G/DL (14.2-18.0) L Hematocrit 43.1 % (42.0-52.0) Mean Corpuscular Volume 83 FL (80-99) Mean Corpuscular Hemoglobin 27.0 PG (27.0-31.0) Mean Corpuscular Hemoglobin Concent 32.7 G/DL (32.0-36.0) Red Cell Distribution Width 12.9 % (11.6-14.8) Platelet Count 352 K/UL (150-450) Mean Platelet Volume 5.5 FL (6.5-10.1) L Neutrophils (%) (Auto) % (45.0-75.0) Lymphocytes (%) (Auto) % (20.0-45.0) Monocytes (%) (Auto) % (1.0-10.0) Eosinophils (%) (Auto) % (0.0-3.0) Basophils (%) (Auto) % (0.0-2.0) Differential Total Cells Counted 100 Neutrophils % (Manual) 67 % (45-75) Lymphocytes % (Manual) 23 % (20-45) Monocytes % (Manual) 10 % (1-10) Eosinophils % (Manual) 0 % (0-3) Basophils % (Manual) 0 % (0-2) Band Neutrophils 0 % (0-8) Platelet Estimate Adequate Platelet Morphology Normal Red Blood Cell Morphology Normal Sodium Level 142 MMOL/L (136-145) Potassium Level 3.8 MMOL/L (3.5-5.1) Chloride Level 104 MMOL/L (98-107) Carbon Dioxide Level 18 MMOL/L (21-32) L Anion Gap 20 mmol/L (5-15) H Blood Urea Nitrogen 13 mg/dL (7-18) Creatinine 1.3 MG/DL (0.55-1.30) Estimated Glomerular Filtration Rate > 60 mL/min (>60) Glucose Level 111 MG/DL (74-106) H Calcium Level 9.3 MG/DL (8.5-10.1) Total Bilirubin 0.3 MG/DL (0.2-1.0) Aspartate Amino Transferase (AST) 151 U/L (15-37) H Alanine Aminotransferase (ALT) 261 U/L (12-78) H Alkaline Phosphatase 290 U/L (46-116) H Total Protein 8.0 G/DL (6.4-8.2) Albumin 3.5 G/DL (3.4-5.0) Globulin 4.5 g/dL Albumin/Globulin Ratio 0.8 (1.0-2.7) L Salicylates Level 2.3 ug/mL (2.8-20) L Acetaminophen Level < 2 MCG/ML (10-30) L Serum Alcohol < 3 mg/dL Urine Color Pale yellow Urine Appearance Clear Urine pH 5 (4.5-8.0) Urine Specific Blakely 1.025 (1.005-1.035) Urine Protein 3+ (NEGATIVE) H Urine Glucose (UA) Negative (NEGATIVE) Urine Ketones 1+ (NEGATIVE) H Urine Blood 4+ (NEGATIVE) H Urine Nitrite Negative (NEGATIVE) Urine Bilirubin Negative (NEGATIVE) Urine Urobilinogen Normal MG/DL (0.0-1.0) Urine Leukocyte Esterase Negative (NEGATIVE) Urine RBC 5-10 /HPF (0 - 0) H Urine WBC 2-4 /HPF (0 - 0) Urine Squamous Epithelial Cells Occasional /LPF Urine Bacteria Occasional /HPF (NONE) Urine Opiates Screen Negative (NEGATIVE) Urine Barbiturates Screen Negative (NEGATIVE) Phencyclidine (PCP) Screen Negative (NEGATIVE) Urine Amphetamines Screen Negative (NEGATIVE) Urine Benzodiazepines Screen Negative (NEGATIVE) Urine Cocaine Screen Negative (NEGATIVE) Urine Marijuana (THC) Screen Positive (NEGATIVE) H EKG Diagnostic Results EKG Time: 09:57 Rate: normal Rhythm: NSR ST Segments: no acute changes Other Impression Sinus rhythm, normal axis, normal intervals, nonspecific T wave flattening Rhythm Strip Diag. Results Rhythm Strip Time: 09:57 EP Interpretation: yes Rate: 90s Rhythm: NSR, no PVC's, no ectopy CT/MRI/US Diagnostic Results CT/MRI/US Diagnostic Results : Impression Procedure: CT Head no Contrast EXAM: CT Head Without Intravenous Contrast CLINICAL HISTORY: SZ TECHNIQUE: Axial computed tomography images of the head/brain without intravenous contrast. CTDI is 53.4 mGy and DLP is 1072.2 mGy-cm. One or more of the following dose reduction techniques were used: automated exposure control, adjustment of the mA and/or kV according to patient size, use of iterative reconstruction technique. COMPARISON: CT head on 03/19/2019 FINDINGS: Brain: No acute infarct or hemorrhage. No extra-axial fluid collection. No mass effect or midline shift. Ventricles and sulci: Normal. No ventriculomegaly or intraventricular hemorrhage. Bones: Probable old fracture deformity of the left lamina papyracea. No bony lesion or acute fracture. Subcutaneous tissues: Normal. Sinuses: Normal. No air-fluid levels or mucosal thickening. Mastoid air cells: Small amount of fluid in the right mastoid air cells. Orbits: Grossly unremarkable. IMPRESSION: No acute intracranial abnormality. Dictated By: Yuli Russ MD Electronically Signed By: Yuli Russ MD Signed Date/Time 09/28/19 1106 CC: Carlito Wiley MD Last Vital Signs Date Time Temp Pulse Resp B/P (MAP) Pulse Ox O2 Delivery O2 Flow Rate FiO2 09/28/19 09:27 98.1 90 16 130/95 (107) 99 Room Air Disposition: HOME, SELF-CARE Condition: Stable Scripts Levetiracetam (KEPPRA) 1,000 Mg Tablet 1000 MG ORAL BID for 30 Days, #60 TAB 0 Refills Prov: Carlito Wiley MD 09/28/19 Carlito Wiley MD September 28, 2019 09:56
[2019-09-28] MEDS ORDERED: levETIRAcetam 1,000mg/NS100ml 100 ML IVPB ONE (10:00)
[2019-09-28 10:10] LABS: HEMATOCRIT 43.1 % (42.0-52.0); HEMOGLOBIN 14.1 G/DL (14.2-18.0); MEAN CORPUSCULAR VOLUME 83 FL (80-99); PLATELET COUNT 352 K/UL (150-450); RED BLOOD COUNT 5.22 M/UL (4.70-6.10); RED CELL DISTRIBUTION WIDTH 12.9 % (11.6-14.8); WHITE BLOOD COUNT 12.9 K/UL (4.8-10.8)
[2019-09-28 10:22] LABS: ANION GAP 20 mmol/L (5-15); BLOOD UREA NITROGEN 13 mg/dL (7-18); CALCIUM 9.3 MG/DL (8.5-10.1); CARBON DIOXIDE 18 MMOL/L (21-32); CHLORIDE 104 MMOL/L (98-107); CREATININE 1.3 MG/DL (0.55-1.30); POTASSIUM 3.8 MMOL/L (3.5-5.1); SODIUM 142 MMOL/L (136-145)
[2019-09-28 10:26] LABS: ALANINE AMINOTRANSFERASE 261 U/L (12-78); ALBUMIN 3.5 G/DL (3.4-5.0); ALBUMIN/GLOBULIN RATIO 0.8 (1.0-2.7); ALKALINE PHOSPHATASE 290 U/L (46-116); ASPARTATE AMINO TRANSFERASE 151 U/L (15-37); BILIRUBIN,TOTAL 0.3 MG/DL (0.2-1.0)
[2019-09-28 10:35] LABS: APPEARANCE,URINE CLEAR; BILIRUBIN, URINE NEGATIVE (NEGATIVE); COLOR,URINE PALE YELLOW; GLUCOSE, URINE (UA) NEGATIVE (NEGATIVE); KETONES,URINE 1+ (NEGATIVE); LEUKOCYTE ESTERASE ,URINE NEGATIVE (NEGATIVE); NITRITE,URINE NEGATIVE (NEGATIVE); PH,URINE 5 (4.5-8.0); PROTEIN,URINE 3+ (NEGATIVE); UROBILINOGEN,URINE NORMAL MG/DL (0.0-1.0)
--- NOTE | 2019-09-28 11:08 | Diagnostic Imaging Report ---
EXAM: CT Head Without Intravenous Contrast CLINICAL HISTORY: SZ TECHNIQUE: Axial computed tomography images of the head/brain without intravenous contrast. CTDI is 53.4 mGy and DLP is 1072.2 mGy-cm. One or more of the following dose reduction techniques were used: automated exposure control, adjustment of the mA and/or kV according to patient size, use of iterative reconstruction technique. COMPARISON: CT head on 03/19/2019 FINDINGS: Brain: No acute infarct or hemorrhage. No extra-axial fluid collection. No mass effect or midline shift. Ventricles and sulci: Normal. No ventriculomegaly or intraventricular hemorrhage. Bones: Probable old fracture deformity of the left lamina papyracea. No bony lesion or acute fracture. Subcutaneous tissues: Normal. Sinuses: Normal. No air-fluid levels or mucosal thickening. Mastoid air cells: Small amount of fluid in the right mastoid air cells. Orbits: Grossly unremarkable. IMPRESSION: No acute intracranial abnormality.
[2019-09-28] MEDS ORDERED: KEPPRA1000 MG ORAL (11:29)
[2019-09-28 12:36] VITALS: BP 135/86
== END 2019-09-28 12:36 | disposition home or self-care (01) ==
LOC: EDBD 09:34 → EMR 09:55
DX: G40.909 Epilepsy, unspecified, not intractable, without status epilepticus (principal); R79.89 Other specified abnormal findings of blood chemistry; R51 Headache; E11.9 Type 2 diabetes mellitus without complications; I10 Essential (primary) hypertension
CPT/HCPCS: 36415; 70450; 80053; 80307; 81003; 85007; 85025; 93005; 96361; 96374; G0480; G0481; J1953; J7030; Z7502; 99284

== ENCOUNTER 2020-01-08 14:16 | Emergency (ER) | payer OTHER ==
[~2020-01-08] VITALS: Ht 185.4 cm; Wt 95.3 kg
[2020-01-08 14:20] VITALS: BP 127/70
[2020-01-08] MEDS ORDERED: levETIRAcetam 1,000mg/NS100ml 100 ML IVPB ONE (14:30)
--- NOTE | 2020-01-08 14:31 | Emergency Room Report ---
History of Present Illness General Chief Complaint: Seizure Source: Patient Present Illness HPI 35M PMHx seizure disorder on keppra 1000mg po BID with Hx of non-compliance because "he doesnt how sleepy his medication makes him feel" CHERRIE s/p witnessed seizure. Last breakthrough seizure was in November and he has not follow up with neurology yet. Pt bit the lateral L side of his tongue but denies other complaints. EMS states that mina was WNL on scene. Patient is fully neuro intact. Pt was sleeping in bed when he had his seizure. He did not hit his head. Pt does not drive. Denies SINCLAIR, vision changes, neck pain, weakness, rash, photophobia, n/v/d, fever, cough. The patient's symptoms were gradual onset, severity was moderate, duration since 1 day. Quality: generalized Past medical history: Denies Past surgical history: Denies Smoking: "black and mild time to time" Alcohol use: Denies Drug use: Marijuana Review of systems: CONST: No fevers or chills, No night sweats PULMONARY: No productive cough, No shortness of breath CARDIAC: No chest pain, No palpitations GI: No vomiting, No diarrhea , No melena_or_BRBPR : No dysuria, No hematuria, No discharge NEURO: No new_focal_weakness_or_numbness, No confusion, No vision changes 14 point Review of Systems is otherwise negative except per HPI Physical Exam: GENERAL: Awake_alert_ nontoxic, no acute distress Spo2 98% on RA -normal EYES: Extraocular muscles are intact. Conjunctivae clear. Lids without swelling ENT: External nose and ear normal_in_appearance. Oropharynx clear. Head_ atraumatic, Moist_oral_mucosa L lateral tongue abrasion no laceration. No dental fracture. NECK: No JVD. No meningismus. No thyromegaly. Supple. Trachea midline RESP: Normal respiratory effort. Symmetric rise. No stridor. Clear_to_ auscultation_No_rales_No_wheezes CARDIAC: Regular rate and regular rhytm. No_significant pedal edema. ABDOMEN: Soft. Nondistended. Nontender_No_rebound_or_guarding. MSK: Normal muscle tone, without rigidity. Extremities without asymmetric deformity or swelling. SKIN: Warm and dry. No visible cyanosis or pallor NEUROLOGIC: Alert, oriented x3. Motor_and_sensation_grossly_intact. No truncal ataxia. Gait_normal Psych: Normal mood and affect, normal judgment and insight - COORDINATION OF CARE Case was discussed with: Patient Any labs and imaging that were ordered were interpreted as part of the medical decision making: Medical Decision Making/Plan: Differential includes noncompliance with medication, brain tumor, intracranial bleeding, metabolic encephalopathy, hyponatremia, hypoglycemia, among others. Labs were checked, which were reassuring, no evidence of hypoglycemia, severe acidosis, or significant metabolic derangement. CT was not ordered, given that patient has history of seizures, is back to baseline neuro status, no focal deficits, no e/o brain tumor, bleed. Patient has been non compliant with his antiepileptic so he was loaded with keppra here. He was counseled on the importance of being compliant with his medications to prevent breakthrough seizure in the future. The patient will be discharged with a refill of their maintenance medication. Patient had serial neurologic exams in the ER, and is back to baseline, no neuro deficits, ambulating steadily without any assistance, understands to take their antiepileptics, and stable for dc home and f/u with PMD. Patient instructed not to drive until cleared by PMD, and DMV form faxed. Allergies: Coded Allergies: No Known Allergies (Unverified , 08/05/14) COVID-19 Screening Contact w/high risk pt: Yes Recent Travel to affected area: No Experienced COVID-19 symptoms?: No COVID-19 Testing performed BARREL LEVELER: No Nursing Documentation-PMH Past Medical History: No History, Except For Hx Cardiac Problems: No - seizure Hx Hypertension: Yes Hx Diabetes: Yes Hx Cancer: No Hx Gastrointestinal Problems: No Hx Neurological Problems: Yes Hx Seizures: Yes Physical Exam Vital Signs Date Time Temp Pulse Resp B/P (MAP) Pulse Ox O2 Delivery O2 Flow Rate FiO2 01/08/20 14:17 97.7 88 16 138/69 (92) 97 Room Air Sp02 EP Interpretation: reviewed, normal Medical Decision Making Diagnostic Impression: Primary Impression: Noncompliance with medication regimen Additional Impression: Seizure Reevaluation Time: 15:30 Last Vital Signs Date Time Temp Pulse Resp B/P (MAP) Pulse Ox O2 Delivery O2 Flow Rate FiO2 01/08/20 14:17 97.7 88 16 138/69 (92) 97 Room Air Status: improved Disposition: HOME, SELF-CARE Admit Decision Time: 15:35 Condition: Stable Scripts Acetaminophen* (TYLENOL EXTRA STRENGTH*) 500 Mg Tablet 500 MG ORAL Q8H PRN for Prn Headache/Temp > 101, #30 TAB 0 Refills Prov: Iliana Otoole D.O. 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 You need to follow-up with a neurologist within 1 week. Take all medications including your Keppra as prescribed otherwise he will have breakthrough seizures. Please do not drive or operate heavy machinery because you have a seizure disorder and it is not only harmful for you but for other people as well Follow-up with your doctor sooner if your condition requires a more timely clinical reevaluation. Return to the emergency department immediately if you feel that your condition is worsening or if you have any new or concerning symptoms. Review your discharge instructions and take any prescriptions given as instructed. Patient Instructions: You had a lapse of consciousness, which we are required by law to report to the DMV. You should not drive until you are cleared to do so by your primary doctor or a neurologist because of the risk of another episode occurring which would place you as well as others on the road in danger. You should not drive until you are cleared to do so by your primary doctor or a neurologist because of the risk of another episode occurring which would place you as well as others on the road in danger. Iliana Otoole D.O. Jan 08, 2020 14:31
[2020-01-08] MEDS ORDERED: TYLENOL EXTRA500 MG ORAL (14:36)
[2020-01-08] MEDS ORDERED: KEPPRA1000 MG ORAL (14:36)
[2020-01-08 16:30] VITALS: BP 133/75
== END 2020-01-08 16:30 | disposition home or self-care (01) ==
LOC: EDBD 14:16 → EMR 15:08
DX: Z91.14 Patient's other noncompliance with medication regimen (principal); G40.909 Epilepsy, unspecified, not intractable, without status epilepticus; I10 Essential (primary) hypertension; E11.9 Type 2 diabetes mellitus without complications; Z79.899 Other long term (current) drug therapy
CPT/HCPCS: 82962; 96374; J1953; U0002; Z7502; 99284

== ENCOUNTER 2020-02-04 13:28 | Emergency (ER) | payer OTHER ==
[~2020-02-04] VITALS: Ht 190.5 cm; Wt 104.3 kg
[~2020-02-04 13:28] MED LIST changes: +TYLENOL EXTRA500 MG ORAL
[2020-02-04 13:42] VITALS: BP 111/64
--- NOTE | 2020-02-04 13:42 | NUR ---
ED Nurse Note: Patient from home and was brought in by ambulance due to tonic clonic seizure for unknown time today. Patient was laying down on bed and had seizure. No reports of oral or head trauma. Pt came in post tictal, AAO x4 follows commands with non labored breathing. Still slow to respond. Seizure precautions implemented.
[2020-02-04] MEDS ORDERED: LORazepam Inj 2mg/ml 1ml IV ONE (13:45)
[2020-02-04] MEDS ORDERED: levETIRAcetam 1,000mg/NS100ml 100 ML IVPB ONE (13:45)
--- NOTE | 2020-02-04 13:45 | Emergency Room Report ---
History of Present Illness General Chief Complaint: Seizure Present Illness HPI Patient is a 35-year-old male brought in by EMS after witnessed seizure. Prior history of seizure disorder. Patient has been intermittently compliant with medications reports his last seizure 3 days ago. Reports having mild headache. Denies any pain to his tongue. Had previously been on Keppra. He has had multiple ER visits for similar symptoms after seizure episodes. Reports having a mild headache similar to previous after seizures. Reports having some mild pain to the right lower extremity and has abrasion to that area. Does not recall how this happened. (Mitch Alarcon MD) Allergies: Coded Allergies: No Known Allergies (Unverified , 08/05/14) COVID-19 Screening Contact w/high risk pt: No Recent Travel to affected area: No Experienced COVID-19 symptoms?: No COVID-19 Testing performed HOSPITAL TRAY SERVICE WORKER: No (Mitch Alarcon MD) Patient History Past Medical History: see triage record, seizures Reviewed Nursing Documentation: PMH: Agreed; PSxH: Agreed (Mitch Alarcon MD) Nursing Documentation-PMH Hx Cardiac Problems: No - seizure Hx Hypertension: Yes Hx Diabetes: Yes Hx Cancer: No Hx Gastrointestinal Problems: No Hx Neurological Problems: Yes Hx Seizures: Yes (Mitch Alarcon MD) Review of Systems All Other Systems: negative except mentioned in HPI (Mitch Alarcon MD) Physical Exam Vital Signs Date Time Temp Pulse Resp B/P (MAP) Pulse Ox O2 Delivery O2 Flow Rate FiO2 02/04/20 13:22 85 18 136/82 (100) 100 Room Air Sp02 EP Interpretation: reviewed, normal General Appearance: normal inspection, well appearing, no apparent distress, alert, GCS 15 Head: atraumatic ENT: normal ENT inspection, hearing grossly normal, normal voice Neck: normal inspection, full range of motion, supple, no bony tend Respiratory: normal inspection, lungs clear, normal breath sounds, no respiratory distress, no retraction, no wheezing Cardiovascular #1: regular rate, rhythm, no edema Gastrointestinal: normal inspection, normal bowel sounds, non tender, soft, no guarding, no hernia Genitourinary: no CVA tenderness Musculoskeletal: normal inspection, back normal, normal range of motion Neurologic: alert, motor strength/tone normal, glass melt operator III-XII nml as tested, oriented x3, responsive, speech normal, normal inspection Psychiatric: normal inspection, judgement/insight normal, mood/affect normal Skin: other - Right lower extremity abrasion to the anterior leg without erythema (Mitch Alarcon MD) Medical Decision Making Diagnostic Impression: Primary Impression: Seizure Additional Impression: Noncompliance with medication regimen ER Course Patient presented for seizure. Differential diagnosis include was not limited to seizure disorder, breakthrough seizure, medication noncompliance, substance abuse among others. Patient is had multiple prior visits for similar symptoms in the past. Patient appears to be awake and alert and does not appear to require CT imaging at this time. Patient was given IV medications due to seizur es recently. patient was endorsed to oncoming physician pending laboratory testing and reevaluation. EKG interpreted by me showed normal sinus rhythm with a rate of [address] changes. There is some early re-dano changes noted which is unchanged from his previous EKGs. (Mitch Alarcon MD) ER Course Assumed care of the patient from the previous provider at approximately 1500 hrs. Please refer to initial note for full history and physical exam. Briefly, this is a 35-year-old male history of seizure disorder and medication noncompliance presenting after generalized tonic-clonic seizure. Labs obtained by previous provider within normal limits. He was loaded with Keppra. Patient was sleeping comfortably and awaiting reevaluation. He is now awake and alert and at his neurologic baseline. He states he has an appointment to see a new neurologist next week. Will discharge with a refill for Keppra although he does state that he has some at home. States he was drinking some wine last night but otherwise has been mostly compliant with his medications. He is stable for outpatient follow-up. Instructed him to return with new or worsening symptoms and seizure precautions also discussed. Laboratory Tests Test 02/04/20 13:50 White Blood Count 9.2 K/UL (4.8-10.8) Red Blood Count 5.19 M/UL (4.70-6.10) Hemoglobin 13.5 G/DL (14.2-18.0) L Hematocrit 41.8 % (42.0-52.0) L Mean Corpuscular Volume 81 FL (80-99) Mean Corpuscular Hemoglobin 26.0 PG (27.0-31.0) L Mean Corpuscular Hemoglobin Concent 32.3 G/DL (32.0-36.0) Red Cell Distribution Width 13.6 % (11.6-14.8) Platelet Count 272 K/UL (150-450) Mean Platelet Volume 6.1 FL (6.5-10.1) L Neutrophils (%) (Auto) 56.0 % (45.0-75.0) Lymphocytes (%) (Auto) 32.5 % (20.0-45.0) Monocytes (%) (Auto) 7.9 % (1.0-10.0) Eosinophils (%) (Auto) 0.5 % (0.0-3.0) Basophils (%) (Auto) 3.1 % (0.0-2.0) H Sodium Level 139 MMOL/L (136-145) Potassium Level 4.3 MMOL/L (3.5-5.1) Chloride Level 104 MMOL/L (98-107) Carbon Dioxide Level 19 MMOL/L (21-32) L Anion Gap 16 mmol/L (5-15) H Blood Urea Nitrogen 15 mg/dL (7-18) Creatinine 1.3 MG/DL (0.55-1.30) Estimated Glomerular Filtration Rate > 60 mL/min (>60) Glucose Level 80 MG/DL (74-106) Calcium Level 9.4 MG/DL (8.5-10.1) Total Bilirubin 0.2 MG/DL (0.2-1.0) Aspartate Amino Transferase (AST) 31 U/L (15-37) Alanine Aminotransferase (ALT) 23 U/L (12-78) Alkaline Phosphatase 159 U/L (46-116) H Troponin I 0.000 ng/mL (0.000-0.056) Total Protein 7.6 G/DL (6.4-8.2) Albumin 3.8 G/DL (3.4-5.0) Globulin 3.8 g/dL Albumin/Globulin Ratio 1.0 (1.0-2.7) Urine Opiates Screen Negative (NEGATIVE) Urine Barbiturates Screen Negative (NEGATIVE) Phencyclidine (PCP) Screen Negative (NEGATIVE) Urine Amphetamines Screen Negative (NEGATIVE) Urine Benzodiazepines Screen Negative (NEGATIVE) Urine Cocaine Screen Negative (NEGATIVE) Urine Marijuana (THC) Screen Positive (NEGATIVE) H (Carlito Wiley MD) EKG Diagnostic Results Rate: normal Rhythm: NSR ST Segments: no acute changes (Mitch Alarcon MD) Last Vital Signs Date Time Temp Pulse Resp B/P (MAP) Pulse Ox O2 Delivery O2 Flow Rate FiO2 02/04/20 13:22 85 18 136/82 (100) 100 Room Air Status: improved (Mitch Alarcon MD) Disposition: HOME, SELF-CARE Condition: Stable Scripts Levetiracetam (KEPPRA) 1,000 Mg Tablet 1000 MG ORAL BID for 30 Days, #60 TAB 0 Refills Prov: Carlito Wiley MD 02/04/20 Mitch Alarcon MD Feb 04, 2020 13:45 Carlito Wiley MD Feb 04, 2020 16:27
--- NOTE | 2020-02-04 14:01 | NUR ---
ED Nurse Note: Collected blood and urine then sent.
[2020-02-04 14:06] LABS: BASOPHILS % (AUTO) 3.1 % (0.0-2.0); EOSINOPHILS % (AUTO) 0.5 % (0.0-3.0); HEMATOCRIT 41.8 % (42.0-52.0); HEMOGLOBIN 13.5 G/DL (14.2-18.0); LYMPHOCYTES % (AUTO) 32.5 % (20.0-45.0); MEAN CORPUSCULAR VOLUME 81 FL (80-99); MONOCYTES % (AUTO) 7.9 % (1.0-10.0); PLATELET COUNT 272 K/UL (150-450); RED BLOOD COUNT 5.19 M/UL (4.70-6.10); RED CELL DISTRIBUTION WIDTH 13.6 % (11.6-14.8); WHITE BLOOD COUNT 9.2 K/UL (4.8-10.8)
[2020-02-04 14:16] LABS: ANION GAP 16 mmol/L (5-15); BLOOD UREA NITROGEN 15 mg/dL (7-18); CALCIUM 9.4 MG/DL (8.5-10.1); CARBON DIOXIDE 19 MMOL/L (21-32); CHLORIDE 104 MMOL/L (98-107); CREATININE 1.3 MG/DL (0.55-1.30); POTASSIUM 4.3 MMOL/L (3.5-5.1); SODIUM 139 MMOL/L (136-145)
[2020-02-04 14:22] LABS: ALANINE AMINOTRANSFERASE 23 U/L (12-78); ALBUMIN 3.8 G/DL (3.4-5.0); ALKALINE PHOSPHATASE 159 U/L (46-116); ASPARTATE AMINO TRANSFERASE 31 U/L (15-37); BILIRUBIN,TOTAL 0.2 MG/DL (0.2-1.0)
--- NOTE | 2020-02-04 14:52 | NUR ---
ED Nurse Note: Called lab and spoke to Murray and followed up with troponin lab add on.
[2020-02-04 15:28] VITALS: BP 110/71
--- NOTE | 2020-02-04 15:29 | NUR ---
ED Nurse Note: patient sleeping on bed at this time and snoring. Sats 100 % in roomair. Seizure precaution still implemented. Pads on both sides and bed locked in lowest position.
[2020-02-04] MEDS ORDERED: KEPPRA1000 MG ORAL (15:30)
--- NOTE | 2020-02-04 16:25 | NUR ---
ED Nurse Note: Patient is more awake and alert at this time. Dr Wiley at the bed side. Water provided to patient.
[2020-02-04 16:43] VITALS: BP 106/70
--- NOTE | 2020-02-04 16:43 | NUR ---
ER DISCHARGE NOTE: Patient is cleared to be discharged per ERMD, pt is aox4, on room air, with stable vital signs. pt was given dc and prescription instructions, pt was able to verbalize understanding, pt id band and iv site removed without complications. pt is able to ambulate with steady gait. pt took all belongings.
== END 2020-02-04 16:43 | disposition home or self-care (01) ==
LOC: EDBD 13:28 → EMR 14:02
DX: G40.909 Epilepsy, unspecified, not intractable, without status epilepticus (principal); Z91.14 Patient's other noncompliance with medication regimen; I10 Essential (primary) hypertension; E11.9 Type 2 diabetes mellitus without complications; Z79.899 Other long term (current) drug therapy
CPT/HCPCS: 36415; 80053; 80307; 84484; 85025; 93005; 96374; 96375; J1953; Z7502; 99284

== ENCOUNTER 2020-02-07 08:31 | Emergency (ER) | payer OTHER ==
[~2020-02-07] VITALS: Ht 182.9 cm; Wt 90.7 kg
--- NOTE | 2020-02-07 08:41 | Emergency Room Report ---
History of Present Illness General Chief Complaint: Seizure Source: EMS Present Illness HPI Patient is a 35-year-old male past medical history of seizure disorder on Keppra known to be noncompliant with medication who presents to the ER status post seizure. Patient had a witnessed tonic-clonic seizure by family who called EMS. Patient was brought in by EMS. Patient is well-known to our emergency department for the same complaint. Patient is currently postictal. Allergies: Coded Allergies: No Known Allergies (Unverified , 08/05/14) COVID-19 Screening Contact w/high risk pt: No Recent Travel to affected area: No Experienced COVID-19 symptoms?: No COVID-19 Testing performed DEPLOYMENT SPECIALIST: No Patient History Reviewed Nursing Documentation: PMH: Agreed; PSxH: Agreed Nursing Documentation-PMH Hx Cardiac Problems: No - seizure Hx Hypertension: Yes Hx Diabetes: Yes Hx Cancer: No Hx Gastrointestinal Problems: No Hx Neurological Problems: Yes Hx Seizures: Yes Review of Systems All Other Systems: limited - ams Physical Exam Vital Signs Date Time Temp Pulse Resp B/P (MAP) Pulse Ox O2 Delivery O2 Flow Rate FiO2 02/07/20 08:33 97.3 88 16 136/84 (101) 99 Room Air Sp02 EP Interpretation: reviewed, normal General Appearance: no apparent distress, non-toxic, lethargic Head: normocephalic, atraumatic Eyes: bilateral eye normal inspection, bilateral eye PERRL ENT: hearing grossly normal, normal pharynx, no angioedema, normal voice Neck: full range of motion, supple/symm/no masses Respiratory: chest non-tender, lungs clear, normal breath sounds, speaking full sentences Cardiovascular #1: regular rate, rhythm, no edema Gastrointestinal: normal bowel sounds, non tender, soft, non-distended, no guarding, no rebound Rectal: deferred Musculoskeletal: no lower extremity edema Skin: no rash Lymphatic: no adenopathy Medical Decision Making Diagnostic Impression: Primary Impression: Noncompliance with medication regimen Additional Impression: Seizure ER Course Patient's vital signs are stable. Patient is well-known to our emergency department for recurrent seizures due to noncompliance. Patient's labs demonstrate mild leukocytosis. Patient has been observed for period of time and is now awake alert and oriented. He is ambulating without difficulty. His girlfriend is here to pick him up. I have explained to him the importance of medication compliance. After discussing risks and benefits of further diagnostics, treatment plans, as well as indications for and risks of admission, the patient is agreeable to being discharged home. I have explained that their evaluation and treatment in the emergency department today is an important step towards them achieving better health but that their evaluation today is not intended to replace further evaluation and treatment by a physician in their local clinic. I have explained that while the current findings suggest no immediate life threatening emergency they will require further evaluation and treatment by a physician of their choice in their area. They understand that it will be necessary for them to review the final reports of their ED visit with their clinic physician. We have reviewed indications for return to the Emergency Department. I have explained that additional time may need to pass and/or additional testing as an outpatient may be necessary before a definitive diagnosis can be made. They tell me they are willing to follow up as instructed within the timeframe I recommend. They appear to understand what we discussed. Additionally they understand that if they are unable to be seen by an outpatient physician they are welcome, and in fact should, return to the Emergency Department for a repeat evaluation. The patient is stable at time of discharge. Laboratory Tests Test 02/07/20 08:57 White Blood Count 11.3 K/UL (4.8-10.8) H Red Blood Count 5.12 M/UL (4.70-6.10) Hemoglobin 13.6 G/DL (14.2-18.0) L Hematocrit 42.3 % (42.0-52.0) Mean Corpuscular Volume 83 FL (80-99) Mean Corpuscular Hemoglobin 26.5 PG (27.0-31.0) L Mean Corpuscular Hemoglobin Concent 32.1 G/DL (32.0-36.0) Red Cell Distribution Width 14.0 % (11.6-14.8) Platelet Count 277 K/UL (150-450) Mean Platelet Volume 6.1 FL (6.5-10.1) L Neutrophils (%) (Auto) 49.7 % (45.0-75.0) Lymphocytes (%) (Auto) 35.7 % (20.0-45.0) Monocytes (%) (Auto) 10.7 % (1.0-10.0) H Eosinophils (%) (Auto) 0.9 % (0.0-3.0) Basophils (%) (Auto) 3.0 % (0.0-2.0) H Sodium Level 140 MMOL/L (136-145) Potassium Level 4.5 MMOL/L (3.5-5.1) Chloride Level 103 MMOL/L (98-107) Carbon Dioxide Level 18 MMOL/L (21-32) L Anion Gap 19 mmol/L (5-15) H Blood Urea Nitrogen 9 mg/dL (7-18) Creatinine 1.4 MG/DL (0.55-1.30) H Estimated Glomerular Filtration Rate > 60 mL/min (>60) Glucose Level 100 MG/DL (74-106) Calcium Level 8.5 MG/DL (8.5-10.1) Magnesium Level 1.9 MG/DL (1.8-2.4) Total Bilirubin 0.2 MG/DL (0.2-1.0) Aspartate Amino Transferase (AST) 23 U/L (15-37) Alanine Aminotransferase (ALT) 20 U/L (12-78) Alkaline Phosphatase 168 U/L (46-116) H Total Protein 7.2 G/DL (6.4-8.2) Albumin 3.6 G/DL (3.4-5.0) Globulin 3.6 g/dL Albumin/Globulin Ratio 1.0 (1.0-2.7) EKG Diagnostic Results Troponin ordered: No - Ordered for seizure EKG Time: 08:36 EP Interpretation: Xochitl Mahan MD Rate: normal - 95 bpm Rhythm: NSR ST Segments: no acute changes Other Impression prolonged QT ASA given to the pt in ED: No Rhythm Strip Diag. Results Rhythm Strip Time: 08:41 EP Interpretation: yes - Xochitl Mahan MD Rate: 94 bpm Rhythm: NSR, no PVC's, no ectopy Last Vital Signs Date Time Temp Pulse Resp B/P (MAP) Pulse Ox O2 Delivery O2 Flow Rate FiO2 02/07/20 08:33 97.3 88 16 136/84 (101) 99 Room Air Disposition: HOME, SELF-CARE Condition: Stable Additional Instructions: The patient was provided with discharge instructions, notified to follow-up with a primary care doctor and or specialist in the next 24-48 hours, and to return to the ED if they have worsening of their symptoms. Please note that this report is being documented using [employer] technology. This can lead to erroneous entry secondary to incorrect interpretation by the dictating instrument. Xochitl Mahan M.D. Feb 07, 2020 08:41
[2020-02-07] MEDS ORDERED: levETIRAcetam 1,000mg/NS100ml 100 ML IVPB ONE (08:45)
[2020-02-07 08:50] VITALS: BP 132/85
--- NOTE | 2020-02-07 08:50 | NUR ---
ED Nurse Note: Pt BIBA R29 for seizures unwitnessed for unknown amount of time. Pt is a&ox2, drowsy. Pt is combative when attempting to do IV, but otherwise calm. Pt is set up on monitor. Blood drawn and sent. Pt has been seen by TEODORA.
[2020-02-07] MEDS ORDERED: LORazepam Inj 2mg/ml 1ml IM ONE (09:00)
[2020-02-07 09:07] LABS: EOSINOPHILS % (AUTO) 0.9 % (0.0-3.0); HEMATOCRIT 42.3 % (42.0-52.0); HEMOGLOBIN 13.6 G/DL (14.2-18.0); LYMPHOCYTES % (AUTO) 35.7 % (20.0-45.0); MEAN CORPUSCULAR VOLUME 83 FL (80-99); MONOCYTES % (AUTO) 10.7 % (1.0-10.0); NEUTROPHILS % (AUTO) 49.7 % (45.0-75.0); PLATELET COUNT 277 K/UL (150-450); RED BLOOD COUNT 5.12 M/UL (4.70-6.10); WHITE BLOOD COUNT 11.3 K/UL (4.8-10.8)
[2020-02-07 09:18] LABS: ANION GAP 19 mmol/L (5-15); BLOOD UREA NITROGEN 9 mg/dL (7-18); CALCIUM 8.5 MG/DL (8.5-10.1); CARBON DIOXIDE 18 MMOL/L (21-32); CHLORIDE 103 MMOL/L (98-107); CREATININE 1.4 MG/DL (0.55-1.30); POTASSIUM 4.5 MMOL/L (3.5-5.1); SODIUM 140 MMOL/L (136-145)
[2020-02-07 09:22] LABS: ALANINE AMINOTRANSFERASE 20 U/L (12-78); ALBUMIN 3.6 G/DL (3.4-5.0); ALKALINE PHOSPHATASE 168 U/L (46-116); ASPARTATE AMINO TRANSFERASE 23 U/L (15-37); BILIRUBIN,TOTAL 0.2 MG/DL (0.2-1.0)
[2020-02-07 10:53] VITALS: BP 127/91
[2020-02-07 11:05] VITALS: BP 125/87
--- NOTE | 2020-02-07 11:05 | NUR ---
ER DISCHARGE NOTE: Patient is cleared to be discharged per ERMD, pt is aox4, on room air, with stable vital signs.pt was able to verbalize understanding, pt id band and iv site removed without complications. pt is able to ambulate with steady gait. pt took all belongings. Pt educated regarding seizures.
== END 2020-02-07 11:09 | disposition home or self-care (01) ==
LOC: EDBD 08:31 → EMR 08:41
DX: G40.909 Epilepsy, unspecified, not intractable, without status epilepticus (principal); Z91.14 Patient's other noncompliance with medication regimen; E11.9 Type 2 diabetes mellitus without complications; I10 Essential (primary) hypertension; D72.829 Elevated white blood cell count, unspecified
CPT/HCPCS: 36415; 80053; 83735; 85025; 93005; 96361; 96372; 96374; J1953; J7030; Z7502; 99284

== ENCOUNTER 2020-03-08 04:51 | Emergency (ER) | payer OTHER ==
[~2020-03-08] VITALS: Ht 188 cm; Wt 127.0 kg
[2020-03-08] MEDS ORDERED: levETIRAcetam 1,000mg/NS100ml 100 ML IVPB ONE (05:00)
[2020-03-08] MEDS ORDERED: KEPPRA500 M4 ORAL (05:11)
--- NOTE | 2020-03-08 05:11 | Emergency Room Report ---
History of Present Illness General Chief Complaint: Seizure Source: Patient Present Illness HPI This is a 35-year-old male with a history of seizure. He is supposed to be on Keppra but is noncompliant with his medication. He presents with chief complaint of seizure. He had a witnessed tonic-clonic seizure activity by family. They called 911. On arrival, patient was still seizing so EMS gave him 5 mg Versed IM. Patient is now postictal. There is some oral trauma. No incontinence of bowel or urine. This is a frequent event for him. He is noncompliant with medication. Also history of cocaine abuse. Allergies: Coded Allergies: No Known Allergies (Unverified , 08/05/14) COVID-19 Screening Contact w/high risk pt: No Recent Travel to affected area: No Experienced COVID-19 symptoms?: No COVID-19 Testing performed BUILDINGS AND GROUNDS DIRECTOR: No Patient History Past Medical History: see triage record, old chart reviewed, seizures Past Surgical History: none Pertinent Family History: none Social History: Reports: smoking, drug use Immunizations: other Reviewed Nursing Documentation: PMH: Agreed; PSxH: Agreed Nursing Documentation-PMH Hx Cardiac Problems: No - seizure Hx Hypertension: Yes Hx Diabetes: Yes Hx Cancer: No Hx Gastrointestinal Problems: No Hx Neurological Problems: Yes Hx Seizures: Yes Review of Systems Eye: Denies: eye pain, blurred vision ENT: Denies: ear pain, nose congestion, throat swelling Respiratory: Denies: cough, shortness of breath Cardiovascular: Denies: chest pain, palpitations Gastrointestinal: Denies: abdominal pain, diarrhea, nausea, vomiting Musculoskeletal: Denies: back pain, joint pain Skin: Denies: rash Neurological: Reports: seizure; Denies: headache, numbness Endocrine: Denies: increased thirst, increased urine Hematologic/Lymphatic: Denies: easy bruising All Other Systems: negative except mentioned in HPI Physical Exam Vital Signs Date Time Temp Pulse Resp B/P (MAP) Pulse Ox O2 Delivery O2 Flow Rate FiO2 03/08/20 04:53 98.8 95 16 112/69 (83) 97 Vitals normal Sp02 EP Interpretation: reviewed, normal General Appearance: well appearing, no apparent distress, other - Sleeping Head: normocephalic, atraumatic Eyes: bilateral eye PERRL, bilateral eye EOMI ENT: hearing grossly normal, normal pharynx Neck: full range of motion, supple, no meningismus Respiratory: chest non-tender, lungs clear, normal breath sounds Cardiovascular #1: regular rate, rhythm, no murmur Gastrointestinal: normal bowel sounds, non tender, no mass, no organomegaly, no bruit, non-distended Musculoskeletal: back normal, normal range of motion Psychiatric: mood/affect normal Medical Decision Making Diagnostic Impression: Primary Impression: Epileptic seizure, generalized Additional Impression: Noncompliance with medication regimen ER Course Patient presents with seizure secondary to noncompliance. Loaded with Keppra. I see no head trauma to warrant CT scan. Once he is awake, will discharge home. Last Vital Signs Date Time Temp Pulse Resp B/P (MAP) Pulse Ox O2 Delivery O2 Flow Rate FiO2 03/08/20 04:53 98.8 95 16 112/69 (83) 97 Status: improved Disposition: HOME, SELF-CARE Condition: Improved Scripts Levetiracetam (KEPPRA) 500 Mg Tablet 500 MG ORAL EVERY 12 HOURS, #60 TAB 0 Refills Prov: Mal Murray MD 03/08/20 Patient Instructions: Seizure, Adult Additional Instructions: Take your seizure medication. Abstain from drug use. Follow-up your doctor in 7 days. Return if worse. Mal Murray MD Mar 08, 2020 05:11
[2020-03-08 05:30] VITALS: BP 106/49
[2020-03-08 06:45] VITALS: BP 113/64
--- NOTE | 2020-03-08 07:05 | NUR ---
ED Nurse Note: Received report from BETTY Joshi. Patient is sleeping, Kepra 1000mg was given IV. Patient calm, cooperative, all VSS at this time.
[2020-03-08 07:34] VITALS: BP 113/64
== END 2020-03-08 07:37 | disposition home or self-care (01) ==
LOC: EDUNIT# 04:51 → EDBD 04:51 → EMR 05:05
DX: G40.409 Other generalized epilepsy and epileptic syndromes, not intractable, without status epilepticus (principal); Z91.19 Patient's noncompliance with other medical treatment and regimen; I10 Essential (primary) hypertension; E11.9 Type 2 diabetes mellitus without complications
CPT/HCPCS: 96374; J1953; Z7502; 99284

== ENCOUNTER 2020-03-30 09:40 | Emergency (ER) | payer OTHER ==
[~2020-03-30] VITALS: Ht 182.9 cm; Wt 99.8 kg
[2020-03-30] MEDS ORDERED: FOLIC ACID1 MG ORAL (09:46)
[2020-03-30 09:50] VITALS: BP 106/80
[2020-03-30] MEDS ORDERED: LORazepam Inj 2mg/ml 1ml IV ONE (10:00)
[2020-03-30] MEDS ORDERED: levETIRAcetam 500mg/NS100ml 100 ML IV ONE (10:00)
--- NOTE | 2020-03-30 10:10 | Emergency Room Report ---
History of Present Illness General Chief Complaint: Seizure Source: Patient, EMS Present Illness HPI 35-year-old male presents status post seizure. Brought in by EMS from home. Had 2 witnessed seizures in bed this morning. Witnessed by family. History of seizures. Takes Keppra. Patient is more alert and oriented now. States he missed his Keppra dose yesterday. Admits to smoking marijuana and drinking alcohol. Denies any pain. Denies any nausea or vomiting. No other aggravating relieving factors. Denies any other associated symptoms Allergies: Coded Allergies: No Known Allergies (Unverified , 08/05/14) COVID-19 Screening Contact w/high risk pt: No Recent Travel to affected area: No Experienced COVID-19 symptoms?: No COVID-19 Testing performed TANNING WHEEL OPERATOR: No Patient History Past Medical History: DM, HTN Past Surgical History: none Pertinent Family History: none Social History: Denies: smoking, alcohol use, drug use Immunizations: UTD Reviewed Nursing Documentation: PMH: Agreed; PSxH: Agreed Nursing Documentation-PMH Past Medical History: No History, Except For Hx Cardiac Problems: No - seizure Hx Hypertension: Yes Hx Diabetes: Yes Hx Cancer: No Hx Gastrointestinal Problems: No Hx Neurological Problems: Yes Hx Seizures: Yes Review of Systems All Other Systems: negative except mentioned in HPI Physical Exam Vital Signs Date Time Temp Pulse Resp B/P (MAP) Pulse Ox O2 Delivery O2 Flow Rate FiO2 03/30/20 09:41 98.1 82 18 120/63 (82) 98 Room Air Sp02 EP Interpretation: reviewed, normal General Appearance: no apparent distress, alert, GCS 15, non-toxic Head: normocephalic, atraumatic Eyes: bilateral eye normal inspection, bilateral eye PERRL ENT: hearing grossly normal, normal pharynx, no angioedema, normal voice Neck: full range of motion, supple/symm/no masses Respiratory: chest non-tender, lungs clear, normal breath sounds, speaking full sentences Cardiovascular #1: regular rate, rhythm, no edema Cardiovascular #2: 2+ carotid (R), 2+ carotid (L), 2+ radial (R), 2+ radial (L), 2+ dorsalis pedis (R), 2+ dorsalis pedis (L) Gastrointestinal: normal bowel sounds, non tender, soft, non-distended, no guarding, no rebound Rectal: deferred Genitourinary: normal inspection, no CVA tenderness Musculoskeletal: back normal, normal range of motion, gait/station normal, non- tender Neurologic: alert, motor strength/tone normal, oriented x3, sensory intact, responsive, speech normal Psychiatric: judgement/insight normal, memory normal, mood/affect normal, no suicidal/homicidal ideation Reflexes: 3+ bicep (R), 3+ bicep (L), 3+ tricep (R), 3+ tricep (L), 3+ knee (R), 3+ knee (L) Lymphatic: no adenopathy Medical Decision Making Diagnostic Impression: Primary Impression: Seizure disorder Additional Impression: Noncompliance with medication regimen ER Course Hospital Course 35-year-old male presents status post seizure. History of seizures Differential diagnosis includes- breakthrough seizure, alcohol abuse, noncompliance with medication Clinical course Patient placed on stretcher. Initial history and physical I ordered labs, IV fluids, Keppra, ativan Labs- no leukocytosis, hemoglobin/hematocrit stable. initially altered. Postictal. Is now alert oriented x3. States he feels better. Given Tylenol for headache. Admits to noncompliance with his medication. Will provide refill of his Keppra. DMV form submitted. Safe for discharge. Diagnosis - seizure disorder, noncompliance with medication regimen stable and discharged to home prescription for Keppra. Followup with PMD. Return to ED if symptoms recur or worsen Laboratory Tests Test 03/30/20 10:15 White Blood Count 7.7 K/UL (4.8-10.8) Red Blood Count 5.41 M/UL (4.70-6.10) Hemoglobin 14.2 G/DL (14.2-18.0) Hematocrit 45.7 % (42.0-52.0) Mean Corpuscular Volume 84 FL (80-99) Mean Corpuscular Hemoglobin 26.1 PG (27.0-31.0) L Mean Corpuscular Hemoglobin Concent 31.0 G/DL (32.0-36.0) L Red Cell Distribution Width 15.3 % (11.6-14.8) H Platelet Count 283 K/UL (150-450) Mean Platelet Volume 7.1 FL (6.5-10.1) Neutrophils (%) (Auto) 66.2 % (45.0-75.0) Lymphocytes (%) (Auto) 21.7 % (20.0-45.0) Monocytes (%) (Auto) 9.5 % (1.0-10.0) Eosinophils (%) (Auto) 0.4 % (0.0-3.0) Basophils (%) (Auto) 2.1 % (0.0-2.0) H Last Vital Signs Date Time Temp Pulse Resp B/P (MAP) Pulse Ox O2 Delivery O2 Flow Rate FiO2 03/30/20 09:41 98.1 82 18 120/63 (82) 98 Room Air Status: improved Disposition: HOME, SELF-CARE Condition: Stable Scripts Levetiracetam (KEPPRA) 750 Mg Tablet 750 MG ORAL BID, #60 TAB Prov: Bryant Burdick MD 03/30/20 Referrals: [facility]ERR[facility] (PCP) Bryant Burdick MD Mar 30, 2020 10:10
[2020-03-30] MEDS ORDERED: LORazepam Inj 2mg/ml 1ml ONE (10:28)
[2020-03-30 10:38] LABS: BASOPHILS % (AUTO) 2.1 % (0.0-2.0); EOSINOPHILS % (AUTO) 0.4 % (0.0-3.0); HEMATOCRIT 45.7 % (42.0-52.0); HEMOGLOBIN 14.2 G/DL (14.2-18.0); LYMPHOCYTES % (AUTO) 21.7 % (20.0-45.0); MEAN CORPUSCULAR VOLUME 84 FL (80-99); MONOCYTES % (AUTO) 9.5 % (1.0-10.0); NEUTROPHILS % (AUTO) 66.2 % (45.0-75.0); PLATELET COUNT 283 K/UL (150-450); RED BLOOD COUNT 5.41 M/UL (4.70-6.10); RED CELL DISTRIBUTION WIDTH 15.3 % (11.6-14.8); WHITE BLOOD COUNT 7.7 K/UL (4.8-10.8)
[2020-03-30] MEDS ORDERED: Acetaminophen 500mg (ES) tab ORAL ONE (11:45)
[2020-03-30 12:03] VITALS: BP 130/90
[2020-03-30] MEDS ORDERED: KEPPRA750 MG ORAL (12:30)
[2020-03-30 13:15] VITALS: BP 110/68
== END 2020-03-30 13:15 | disposition home or self-care (01) ==
LOC: EDBD 09:40 → EMR 09:58
DX: G40.909 Epilepsy, unspecified, not intractable, without status epilepticus (principal); Z91.14 Patient's other noncompliance with medication regimen; I10 Essential (primary) hypertension; E11.9 Type 2 diabetes mellitus without complications
CPT/HCPCS: 36415; 85025; 96361; 96374; 96375; J1953; J7030; Z7502; 99284

== ENCOUNTER 2020-04-06 10:34 | Emergency (ER) | payer OTHER ==
[~2020-04-06] VITALS: Ht 182.9 cm; Wt 99.8 kg
[~2020-04-06 10:34] MED LIST changes: +KEPPRA750 MG ORAL
--- NOTE | 2020-04-06 10:43 | Emergency Room Report ---
History of Present Illness General Chief Complaint: Seizure Source: Patient, EMS Present Illness HPI Disclaimer: Please note that this report is being documented using [employer] technology. This can lead to erroneous entry secondary to incorrect interpretation by the dictating instrument. HPI: 35-year-old male well-known to the ER presents for seizure. Long history of seizure disorder noncompliant with medication as well as substance abuse. He was found by EMS in the seat of his car after family stated he had a witnessed 3-minute long generalized tonic-clonic seizure which aborted spontaneously. 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 Patient arrives somnolent but arousable. He is able to follow commands. Denies headache. States has been in his usual health otherwise. Not taking antiepileptic medications. Patient's license has been suspended multiple times by us in the emergency department yet he continues to drive. PMH: Seizure disorder, substance abuse PSH: Reviewed Allergies: None listed Social Hx: Substance abuse Allergies: Coded Allergies: No Known Allergies (Unverified , 08/05/14) COVID-19 Screening Contact w/high risk pt: No Recent Travel to affected area: No Experienced COVID-19 symptoms?: No COVID-19 Testing performed RAIL ASSEMBLER: No Nursing Documentation-PMH Hx Cardiac Problems: No - seizure Hx Hypertension: Yes Hx Diabetes: Yes Hx Cancer: No Hx Gastrointestinal Problems: No Hx Neurological Problems: Yes Hx Seizures: Yes Review of Systems All Other Systems: negative except mentioned in HPI Physical Exam Vital Signs Date Time Temp Pulse Resp B/P (MAP) Pulse Ox O2 Delivery O2 Flow Rate FiO2 04/06/20 10:28 85 20 121/62 (81) 99 Room Air General: Somnolent but arousable. Purposeful movements. Can respond to questions HEENT: NC/AT. EOMI. PERRLA. No nystagmus. No oral trauma. Cardiovascular: RRR. S1 and S2 normal. No murmur appreciated Resp: Normal work of breathing. No cough, wheezing or crackles appreciated Abdomen: Abdomen is soft, nondistended. Nontender Skin: Intact. No abrasions, laceration or rash over the exposed skin MSK: Normal tone and bulk. Moving all extremities. No obvious deformity. Neuro: Some but arousable. GCS 14. Follows simple commands. Understands and answers questions appropriately. Medical Decision Making Diagnostic Impression: Primary Impression: Noncompliance with medication regimen Additional Impression: Seizure ER Course 35-year-old male with history of seizure disorder noncompliant on antiepileptic medications presents after generalized tonic-clonic seizure witnessed by family. No head injury occurred. He is somnolent but arousable and nonfocal neurologic exam. Loaded with Keppra. Labs returned within normal limits. Will refill Keppra. DMV notified about this patient multiple times and will be again. [employer] notified as patient is danger to self and others persistently driving while having uncontrolled seizures however they stated they are unable to do anything at this time. Patient is now awake and alert ambulating with steady gait. He states he feels much better. Will be discharged home with his family. Again I stressed the importance of not driving a motor vehicle as he has uncontrolled seizures. Laboratory Tests Test 04/06/20 10:45 White Blood Count 9.2 K/UL (4.8-10.8) Red Blood Count 5.43 M/UL (4.70-6.10) Hemoglobin 14.4 G/DL (14.2-18.0) Hematocrit 46.9 % (42.0-52.0) Mean Corpuscular Volume 86 FL (80-99) Mean Corpuscular Hemoglobin 26.5 PG (27.0-31.0) L Mean Corpuscular Hemoglobin Concent 30.7 G/DL (32.0-36.0) L Red Cell Distribution Width 15.5 % (11.6-14.8) H Platelet Count 295 K/UL (150-450) Mean Platelet Volume 6.4 FL (6.5-10.1) L Neutrophils (%) (Auto) 66.6 % (45.0-75.0) Lymphocytes (%) (Auto) 25.1 % (20.0-45.0) Monocytes (%) (Auto) 6.0 % (1.0-10.0) Eosinophils (%) (Auto) 0.4 % (0.0-3.0) Basophils (%) (Auto) 2.0 % (0.0-2.0) Sodium Level 140 MMOL/L (136-145) Potassium Level 4.4 MMOL/L (3.5-5.1) Chloride Level 102 MMOL/L (98-107) Carbon Dioxide Level 18 MMOL/L (21-32) L Anion Gap 20 mmol/L (5-15) H Blood Urea Nitrogen 7 mg/dL (7-18) Creatinine 1.2 MG/DL (0.55-1.30) Estimated Glomerular Filtration Rate > 60 mL/min (>60) Glucose Level 90 MG/DL (74-106) Calcium Level 9.5 MG/DL (8.5-10.1) Total Bilirubin 0.2 MG/DL (0.2-1.0) Aspartate Amino Transferase (AST) 32 U/L (15-37) Alanine Aminotransferase (ALT) 30 U/L (12-78) Alkaline Phosphatase 132 U/L (46-116) H Total Protein 8.3 G/DL (6.4-8.2) H Albumin 4.1 G/DL (3.4-5.0) Globulin 4.2 g/dL Albumin/Globulin Ratio 1.0 (1.0-2.7) Serum Alcohol < 3 mg/dL EKG Diagnostic Results Troponin ordered: Yes When was troponin ordered?: Apr 06, 2020 EKG Time: 11:04 Rate: normal Rhythm: NSR ST Segments: no acute changes Other Impression Sinus rhythm, normal axis, normal intervals, no ST segment changes Rhythm Strip Diag. Results Rhythm Strip Time: 11:04 EP Interpretation: yes Rate: 70s Rhythm: NSR, no PVC's, no ectopy Last Vital Signs Date Time Temp Pulse Resp B/P (MAP) Pulse Ox O2 Delivery O2 Flow Rate FiO2 04/06/20 10:28 85 20 121/62 (81) 99 Room Air Disposition: HOME, SELF-CARE Condition: Stable Scripts Levetiracetam (KEPPRA) 750 Mg Tablet 750 MG ORAL BID, #60 TAB Prov: Carlito Wiley MD 04/06/20 Carlito Wiley MD Apr 06, 2020 10:43
[2020-04-06] MEDS ORDERED: levETIRAcetam 1,000mg/NS100ml 100 ML IVPB ONE (10:45)
[2020-04-06] MEDS ORDERED: KEPPRA750 MG ORAL (10:46)
[2020-04-06 11:11] VITALS: BP 121/62
[2020-04-06 11:12] LABS: ANION GAP 20 mmol/L (5-15); BLOOD UREA NITROGEN 7 mg/dL (7-18); CALCIUM 9.5 MG/DL (8.5-10.1); CARBON DIOXIDE 18 MMOL/L (21-32); CHLORIDE 102 MMOL/L (98-107); CREATININE 1.2 MG/DL (0.55-1.30); POTASSIUM 4.4 MMOL/L (3.5-5.1); SODIUM 140 MMOL/L (136-145)
[2020-04-06 11:16] LABS: ALANINE AMINOTRANSFERASE 30 U/L (12-78); ALBUMIN 4.1 G/DL (3.4-5.0); ALKALINE PHOSPHATASE 132 U/L (46-116); ASPARTATE AMINO TRANSFERASE 32 U/L (15-37); BILIRUBIN,TOTAL 0.2 MG/DL (0.2-1.0)
[2020-04-06 11:21] LABS: EOSINOPHILS % (AUTO) 0.4 % (0.0-3.0); HEMATOCRIT 46.9 % (42.0-52.0); HEMOGLOBIN 14.4 G/DL (14.2-18.0); LYMPHOCYTES % (AUTO) 25.1 % (20.0-45.0); MEAN CORPUSCULAR VOLUME 86 FL (80-99); NEUTROPHILS % (AUTO) 66.6 % (45.0-75.0); PLATELET COUNT 295 K/UL (150-450); RED BLOOD COUNT 5.43 M/UL (4.70-6.10); RED CELL DISTRIBUTION WIDTH 15.5 % (11.6-14.8); WHITE BLOOD COUNT 9.2 K/UL (4.8-10.8)
[2020-04-06 13:40] VITALS: BP 121/62
== END 2020-04-06 13:40 | disposition home or self-care (01) ==
LOC: EDBD 10:34 → EMR 10:55
DX: G40.409 Other generalized epilepsy and epileptic syndromes, not intractable, without status epilepticus (principal); Z91.19 Patient's noncompliance with other medical treatment and regimen; I10 Essential (primary) hypertension; E11.9 Type 2 diabetes mellitus without complications
CPT/HCPCS: 80053; 85025; 93005; 96374; G0480; J1953; Z7502; 99284

== ENCOUNTER 2020-05-13 16:25 | Emergency (ER) | payer OTHER ==
[~2020-05-13] VITALS: Ht 182.9 cm; Wt 108.9 kg
[2020-05-13 16:30] VITALS: BP 123/68
[2020-05-13] MEDS ORDERED: Midazolam 2mg/2ml Inj IM ONE (16:30)
[2020-05-13] MEDS ORDERED: levETIRAcetam 1,000mg/NS100ml 100 ML IVPB ONE (16:30)
--- NOTE | 2020-05-13 16:30 | NUR ---
ED Nurse Note: Pt CHERRIE RAHedy from home c/o seizure, witnessed by family, lasted for 30sec. Per EMS, another seizure episode was witnessed by them lasted for 20 sec, Versed 5mg IM was given ict support and test engineers. Pt is restless, combative, uncooperative. No SOB, on room air. Pt is AAOx0, non verbal, responsive to painful stimuli.Placed on environmental health and safety leader. ERMD at bedside.
--- NOTE | 2020-05-13 16:50 | NUR ---
ED Nurse Note: IV line established. Blood sent to lab.
--- NOTE | 2020-05-13 16:56 | Emergency Room Report ---
History of Present Illness General Chief Complaint: Seizure Source: Medical Record Present Illness HPI History limited due to patient's condition 35-year-old male history of epilepsy on Keppra presents with seizure prior to arrival patient was lying on his bed, had a general tonic-clonic seizure, no head trauma per EMS patient was given 5 mg of Versed, patient remained combative and confused, patient was brought in for evaluation seizures have unknown precipitating factor, alleviated with seizure medication severity was moderate, constant patient presents for evaluation and treatment Allergies: Coded Allergies: No Known Allergies (Unverified , 08/05/14) COVID-19 Screening Contact w/high risk pt: No Recent Travel to affected area: No Experienced COVID-19 symptoms?: No COVID-19 Testing performed 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: No Patient History Limited by: medical condition Past Medical History: see triage record Reviewed Nursing Documentation: PMH: Agreed; PSxH: Agreed Nursing Documentation-PMH Past Medical History: No History, Except For Hx Cardiac Problems: No - seizure Hx Hypertension: Yes Hx Diabetes: Yes Hx Cancer: No Hx Gastrointestinal Problems: No Hx Neurological Problems: Yes Hx Seizures: Yes Review of Systems All Other Systems: limited Physical Exam Vital Signs Date Time Temp Pulse Resp B/P (MAP) Pulse Ox O2 Delivery O2 Flow Rate FiO2 05/13/20 16:27 97.2 84 16 123/68 (86) 100 Room Air Sp02 EP Interpretation: reviewed, normal General Appearance: moderate distress - Combative confused shaking Head: normocephalic, atraumatic Eyes: bilateral eye PERRL, bilateral eye EOMI ENT: uvula midline, moist mucus membranes, other Neck: supple, thyroid normal, supple/symm/no masses Respiratory: lungs clear, no respiratory distress, no retraction, no accessory muscle use Cardiovascular #1: normal peripheral pulses, no edema, no gallop, no murmur, tachycardia Gastrointestinal: non tender, soft, no guarding, no rebound Musculoskeletal: normal inspection Neurologic: responsive Psychiatric: anxious Skin: no rash, warm/dry Procedures Critical Care Time Critical Care Time Given the critical condition in which the patient arrived, the patient was immediately assessed by myself and the nurse, and cardiac monitoring initiated due to the potential for rapid decompensation of the patient's clinical condition. During the course of the patient's stay, I spent a considerable amount of time at the bedside performing serial re-evaluations of the patient's hemodynamic and clinical status because of the recognized potential threat to life or limb in this condition. I then had a chance to review not only all of the available current laboratory and radiographic studies obtained today, but I also reviewed old records available to me at the time. Additionally, any ancillary information available including stamping die try out worker records were reviewed. Sequential vital signs were obtained. Critical Care time of 31 minutes was performed exclusive of billable procedures. Patient required Versed and a loading dose of Keppra to terminate his seizures Patient was at risk of brain damage Medical Decision Making Diagnostic Impression: Primary Impression: Epileptic seizure, generalized ER Course 35-year-old male presents with acute generalized seizure patient initially combative requiring Versed 10 mg IM loading dose of Keppra 1 g Reevaluation 7:23 PM patient back to baseline spoke with patient patient reports that he has intermittently been taking his epileptic meds Patient counseled the importance of taking his medication patient states he does not like the way it makes him feel Patient states he will adjust his medications with his primary Disposition home with return cautions follow-up with PCP Laboratory Tests Test 05/13/20 16:50 White Blood Count 6.4 K/UL (4.8-10.8) Red Blood Count 5.43 M/UL (4.70-6.10) Hemoglobin 14.0 G/DL (14.2-18.0) L Hematocrit 46.3 % (42.0-52.0) Mean Corpuscular Volume 85 FL (80-99) Mean Corpuscular Hemoglobin 25.8 PG (27.0-31.0) L Mean Corpuscular Hemoglobin Concent 30.3 G/DL (32.0-36.0) L Red Cell Distribution Width 14.8 % (11.6-14.8) Platelet Count 286 K/UL (150-450) Mean Platelet Volume 6.6 FL (6.5-10.1) Neutrophils (%) (Auto) 60.4 % (45.0-75.0) Lymphocytes (%) (Auto) 27.3 % (20.0-45.0) Monocytes (%) (Auto) 10.0 % (1.0-10.0) Eosinophils (%) (Auto) 0.3 % (0.0-3.0) Basophils (%) (Auto) 2.1 % (0.0-2.0) H Sodium Level 139 MMOL/L (136-145) Potassium Level 3.6 MMOL/L (3.5-5.1) Chloride Level 103 MMOL/L (98-107) Carbon Dioxide Level 17 MMOL/L (21-32) L Anion Gap 19 mmol/L (5-15) H Blood Urea Nitrogen 8 mg/dL (7-18) Creatinine 1.3 MG/DL (0.55-1.30) Estimated Glomerular Filtration Rate > 60 mL/min (>60) Glucose Level 102 MG/DL (74-106) Calcium Level 9.6 MG/DL (8.5-10.1) Total Bilirubin 0.3 MG/DL (0.2-1.0) Aspartate Amino Transferase (AST) 21 U/L (15-37) Alanine Aminotransferase (ALT) 22 U/L (12-78) Alkaline Phosphatase 119 U/L (46-116) H Total Protein 7.9 G/DL (6.4-8.2) Albumin 3.8 G/DL (3.4-5.0) Globulin 4.1 g/dL Albumin/Globulin Ratio 0.9 (1.0-2.7) L Last Vital Signs Date Time Temp Pulse Resp B/P (MAP) Pulse Ox O2 Delivery O2 Flow Rate FiO2 05/13/20 16:27 97.2 84 16 123/68 (86) 100 Room Air Disposition: HOME, SELF-CARE Condition: Stable Referrals: [facility] (PCP) Patient Instructions: Seizure, Adult Additional Instructions: The patient was provided with discharge instructions, notified to follow-up with a primary care doctor and or specialist in the next 24-48 hours, and to return to the ED if they have worsening of their symptoms. Please note that this report is being documented using [employer] technology. This can lead to erroneous entry secondary to incorrect interpretation by the dictating instrument. Prosper Chacon MD May 13, 2020 16:56
[2020-05-13 17:16] LABS: BASOPHILS % (AUTO) 2.1 % (0.0-2.0); EOSINOPHILS % (AUTO) 0.3 % (0.0-3.0); HEMATOCRIT 46.3 % (42.0-52.0); LYMPHOCYTES % (AUTO) 27.3 % (20.0-45.0); MEAN CORPUSCULAR VOLUME 85 FL (80-99); NEUTROPHILS % (AUTO) 60.4 % (45.0-75.0); PLATELET COUNT 286 K/UL (150-450); RED BLOOD COUNT 5.43 M/UL (4.70-6.10); RED CELL DISTRIBUTION WIDTH 14.8 % (11.6-14.8); WHITE BLOOD COUNT 6.4 K/UL (4.8-10.8)
[2020-05-13 17:28] LABS: ANION GAP 19 mmol/L (5-15); BLOOD UREA NITROGEN 8 mg/dL (7-18); CALCIUM 9.6 MG/DL (8.5-10.1); CARBON DIOXIDE 17 MMOL/L (21-32); CHLORIDE 103 MMOL/L (98-107); CREATININE 1.3 MG/DL (0.55-1.30); POTASSIUM 3.6 MMOL/L (3.5-5.1); SODIUM 139 MMOL/L (136-145)
[2020-05-13 17:33] LABS: ALANINE AMINOTRANSFERASE 22 U/L (12-78); ALBUMIN 3.8 G/DL (3.4-5.0); ALBUMIN/GLOBULIN RATIO 0.9 (1.0-2.7); ALKALINE PHOSPHATASE 119 U/L (46-116); ASPARTATE AMINO TRANSFERASE 21 U/L (15-37); BILIRUBIN,TOTAL 0.3 MG/DL (0.2-1.0)
--- NOTE | 2020-05-13 18:03 | NUR ---
when patient is ready to go home call [email or web address]
[2020-05-13 18:54] VITALS: BP 117/81
--- NOTE | 2020-05-13 19:10 | NUR ---
HAND-OFF: Report given to Rosa HERNÁNDEZ.
--- NOTE | 2020-05-13 19:25 | NUR ---
ED Nurse Note: Recived report from Siddhartha
[2020-05-13 19:31] VITALS: BP 111/78
--- NOTE | 2020-05-13 19:31 | NUR ---
ED Nurse Note: Pt is resting comfortably, breathing is even and unlabored. He is axox4 speaks in complete sentances. He is able to verbalize appropriately with staff and can move all 4 extremities independantly.
[2020-05-13 19:38] VITALS: BP 112/80
--- NOTE | 2020-05-13 19:39 | NUR ---
ER DISCHARGE NOTE: Patient is cleared to be discharged per ERMD, pt is aox4, on room air, with stable vital signs. pt was given dc and prescription instructions, pt was able to verbalize understanding, pt id band and iv site removed without complications. pt is able to ambulate with steady gait. pt took all belongings. 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
== END 2020-05-13 19:39 | disposition home or self-care (01) ==
LOC: EDBD 16:25 → EMR 16:40
DX: G40.409 Other generalized epilepsy and epileptic syndromes, not intractable, without status epilepticus (principal); I10 Essential (primary) hypertension; E11.9 Type 2 diabetes mellitus without complications; Z79.899 Other long term (current) drug therapy
CPT/HCPCS: 36415; 80053; 85025; 96361; 96374; 96375; J1953; J2250; Z7502; 99291

== ENCOUNTER 2020-05-21 11:35 | Emergency (ER) | payer OTHER ==
[~2020-05-21] VITALS: Ht 185.4 cm; Wt 99.8 kg
--- NOTE | 2020-05-21 11:35 | NUR ---
ED Nurse Note: Pt was brought in by R29 from home s/p tonic clonic seizure for 30 seconds with oral trauma. Pt was placed on bed, hooked to laboratory monitor, no active bleeding at this time. Latest accucheck 81mg/dl, ERMD notified, apple juice offered. Pt is now, awake and alert x4, calm and cooperative to care, VSS, on RA, afebrile on triage.
[2020-05-21] MEDS: levETIRAcetam 500mg/NS100ml 100 ML IV ONE (11:56)
[2020-05-21 11:59] VITALS: BP 146/82
[2020-05-21 12:05] LABS: BASOPHILS % (AUTO) 1.7 % (0.0-2.0); EOSINOPHILS % (AUTO) 0.6 % (0.0-3.0); HEMATOCRIT 48.2 % (42.0-52.0); HEMOGLOBIN 14.3 G/DL (14.2-18.0); LYMPHOCYTES % (AUTO) 34.1 % (20.0-45.0); MEAN CORPUSCULAR VOLUME 87 FL (80-99); MONOCYTES % (AUTO) 10.2 % (1.0-10.0); NEUTROPHILS % (AUTO) 53.4 % (45.0-75.0); PLATELET COUNT 274 K/UL (150-450); RED BLOOD COUNT 5.55 M/UL (4.70-6.10); RED CELL DISTRIBUTION WIDTH 15.4 % (11.6-14.8); WHITE BLOOD COUNT 10.8 K/UL (4.8-10.8)
[2020-05-21 12:37] LABS: ALANINE AMINOTRANSFERASE 17 U/L (12-78); ALBUMIN 3.9 G/DL (3.4-5.0); ALBUMIN/GLOBULIN RATIO 0.9 (1.0-2.7); ALKALINE PHOSPHATASE 128 U/L (46-116); ANION GAP 29 mmol/L (5-15); ASPARTATE AMINO TRANSFERASE 20 U/L (15-37); BILIRUBIN,TOTAL 0.2 MG/DL (0.2-1.0); BLOOD UREA NITROGEN 7 mg/dL (7-18); CALCIUM 9.5 MG/DL (8.5-10.1); CARBON DIOXIDE 10 MMOL/L (21-32); CHLORIDE 101 MMOL/L (98-107); CREATININE 1.3 MG/DL (0.55-1.30); POTASSIUM 4.1 MMOL/L (3.5-5.1); SODIUM 140 MMOL/L (136-145)
[2020-05-21 13:42] VITALS: BP 144/80
--- NOTE | 2020-05-22 08:18 | Emergency Room Report ---
History of Present Illness General Chief Complaint: Seizure Source: Patient Present Illness HPI 35-year-old male presents status post seizure. Witnessed seizure at home. Lasted 30 seconds. Brought in by EMS from home. History of seizures. Normally not compliant with his medication. Initially confused and postictal. Now more alert and oriented. Denies drug use. States he feels better. Denies pain. D enies headache. No other aggravating relieving factors. 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 Patient History Past Medical History: DM, HTN Past Surgical History: none Pertinent Family History: none Social History: Denies: smoking, alcohol use, drug use Immunizations: UTD Reviewed Nursing Documentation: PMH: Agreed; PSxH: Agreed Nursing Documentation-PMH Hx Cardiac Problems: No - seizure Hx Hypertension: Yes Hx Diabetes: Yes Hx Cancer: No Hx Gastrointestinal Problems: No Hx Neurological Problems: Yes Hx Seizures: Yes Review of Systems All Other Systems: negative except mentioned in HPI Physical Exam Vital Signs Date Time Temp Pulse Resp B/P (MAP) Pulse Ox O2 Delivery O2 Flow Rate FiO2 05/21/20 11:30 98.1 101 18 146/82 (103) 98 Room Air Sp02 EP Interpretation: reviewed, normal General Appearance: no apparent distress, alert, GCS 15, non-toxic Head: normocephalic, atraumatic Eyes: bilateral eye normal inspection, bilateral eye PERRL ENT: hearing grossly normal, normal pharynx, no angioedema, normal voice Neck: full range of motion, supple/symm/no masses Respiratory: chest non-tender, lungs clear, normal breath sounds, speaking full sentences Cardiovascular #1: regular rate, rhythm, no edema Cardiovascular #2: 2+ carotid (R), 2+ carotid (L), 2+ radial (R), 2+ radial (L), 2+ dorsalis pedis (R), 2+ dorsalis pedis (L) Gastrointestinal: normal bowel sounds, non tender, soft, non-distended, no guarding, no rebound Rectal: deferred Genitourinary: normal inspection, no CVA tenderness Musculoskeletal: back normal, normal range of motion, gait/station normal, non- tender Neurologic: alert, motor strength/tone normal, oriented x3, sensory intact, responsive, speech normal Psychiatric: judgement/insight normal, memory normal, mood/affect normal, no suicidal/homicidal ideation Reflexes: 3+ bicep (R), 3+ bicep (L), 3+ tricep (R), 3+ tricep (L), 3+ knee (R ), 3+ knee (L) Skin: no rash Lymphatic: no adenopathy Medical Decision Making Diagnostic Impression: Primary Impression: Seizure disorder ER Course Hospital Course 35-year-old M presents to ED status post seizure. Differential diagnosis includes- breakthrough seizure, alcohol abuse, noncompliance with medication Clinical course Patient placed on stretcher. Initial history and physical I ordered labs, IV fluids, Keppra Labs-electrolytes okay, no leukocytosis, hemoglobin/hematocrit stable. Patient allowed to rest is now awake alert oriented x3. ambulating without difficulty. States he is got his seizure medications at home. Important of compliance discussed. Safe for discharge with close outpatient follow-up Diagnosis - seizure stable and discharged to home. Followup with PMD. Return to ED if symptoms recur or worsen Labs Test 05/21/20 11:45 White Blood Count 10.8 K/UL (4.8-10.8) Red Blood Count 5.55 M/UL (4.70-6.10) Hemoglobin 14.3 G/DL (14.2-18.0) Hematocrit 48.2 % (42.0-52.0) Mean Corpuscular Volume 87 FL (80-99) Mean Corpuscular Hemoglobin 25.7 PG (27.0-31.0) Mean Corpuscular Hemoglobin Concent 29.6 G/DL (32.0-36.0) Red Cell Distribution Width 15.4 % (11.6-14.8) Platelet Count 274 K/UL (150-450) Mean Platelet Volume 6.4 FL (6.5-10.1) Neutrophils (%) (Auto) 53.4 % (45.0-75.0) Lymphocytes (%) (Auto) 34.1 % (20.0-45.0) Monocytes (%) (Auto) 10.2 % (1.0-10.0) Eosinophils (%) (Auto) 0.6 % (0.0-3.0) Basophils (%) (Auto) 1.7 % (0.0-2.0) Sodium Level 140 MMOL/L (136-145) Potassium Level 4.1 MMOL/L (3.5-5.1) Chloride Level 101 MMOL/L (98-107) Carbon Dioxide Level 10 MMOL/L (21-32) Anion Gap 29 mmol/L (5-15) Blood Urea Nitrogen 7 mg/dL (7-18) Creatinine 1.3 MG/DL (0.55-1.30) Estimat Glomerular Filtration Rate > 60 mL/min (>60) Glucose Level 80 MG/DL (74-106) Calcium Level 9.5 MG/DL (8.5-10.1) Total Bilirubin 0.2 MG/DL (0.2-1.0) Aspartate Amino Transf (AST/SGOT) 20 U/L (15-37) Alanine Aminotransferase (ALT/SGPT) 17 U/L (12-78) Alkaline Phosphatase 128 U/L (46-116) Total Protein 8.2 G/DL (6.4-8.2) Albumin 3.9 G/DL (3.4-5.0) Globulin 4.3 g/dL Albumin/Globulin Ratio 0.9 (1.0-2.7) Last Vital Signs Date Time Temp Pulse Resp B/P (MAP) Pulse Ox O2 Delivery O2 Flow Rate FiO2 05/21/20 13:42 98.1 19 144/80 99 Room Air 05/21/20 11:59 101 Status: improved Disposition: HOME, SELF-CARE Condition: Stable Referrals: [facility] (PCP) Patient Instructions: Seizure, Adult Bryant Burdick MD May 22, 2020 08:18
== END 2020-05-21 13:32 | disposition home or self-care (01) ==
LOC: EDBD 11:35 → EMR 12:00
DX: G40.909 Epilepsy, unspecified, not intractable, without status epilepticus (principal); I10 Essential (primary) hypertension; E11.8 Type 2 diabetes mellitus with unspecified complications
CPT/HCPCS: 36415; 80053; 85025; 96361; 96374; J1953; J7030; Z7502; 99284

== ENCOUNTER 2020-06-27 10:35 | Emergency (ER) | payer OTHER ==
[~2020-06-27] VITALS: Ht 188 cm; Wt 117.9 kg
--- NOTE | 2020-06-27 10:28 | Emergency Room Report ---
History of Present Illness General Chief Complaint: Seizure Source: EMS Present Illness HPI Patient is a 37-year-old male past medical history of seizure disorder per family not currently taking his medication who was brought into the emergency room status post seizure. When EMS arrived patient was seizing and was given 10 mg of intramuscular Versed. EMS is familiar with the patient and states that he becomes violent and agitated when coming out of his seizures. Patient is currently postictal. Allergies: Coded Allergies: No Known Allergies (Unverified , 08/05/14) COVID-19 Screening Contact w/high risk pt: No Experienced COVID-19 symptoms?: No Patient History Reviewed Nursing Documentation: PMH: Agreed; PSxH: Agreed Nursing Documentation-PMH Past Medical History: No History, Except For Hx Seizures: Yes Review of Systems All Other Systems: limited - Postictal and sedated Physical Exam Vital Signs Date Time Temp Pulse Resp B/P (MAP) Pulse Ox O2 Delivery O2 Flow Rate FiO2 06/27/20 10:12 98.2 128 20 140/72 (94) 99 Room Air Sp02 EP Interpretation: reviewed, normal General Appearance: other - Postictal Head: normocephalic, atraumatic Eyes: bilateral eye normal inspection, bilateral eye PERRL ENT: moist mucus membranes Neck: full range of motion, no meningismus Respiratory: chest non-tender, no respiratory distress, no accessory muscle use Cardiovascular #1: tachycardia Gastrointestinal: non tender, soft Rectal: deferred Musculoskeletal: normal range of motion Skin: no rash Lymphatic: no adenopathy Medical Decision Making Diagnostic Impression: Primary Impression: Noncompliance with medication regimen Additional Impression: Epileptic seizure, generalized ER Course Patient noncompliant with medication at home. Patient loaded with a gram of Keppra. Patient is now awake alert and oriented. He is refusing any further work-up in the emergency department. After discussing risks and benefits of further diagnostics, treatment plans, as well as indications for and risks of admission, the patient is agreeable to being discharged home. I have explained that their evaluation and treatment in the emergency department today is an important step towards them achieving better health but that their evaluation today is not intended to replace further evaluation and treatment by a physician in their local clinic. I have explained that while the current findings suggest no immediate life threatening emergency they will require further evaluation and treatment by a physician of their choice in their area. They understand that it will be necessary for them to review the final reports of their ED visit with their clinic physician. We have reviewed indications for return to the Emergency Department. I have explained that additional time may need to pass and/or additional testing as an outpatient may be necessary before a definitive diagnosis can be made. They tell me they are willing to follow up as instructed within the timeframe I recommend. They appear to understand what we discussed. Additionally they understand that if they are unable to be seen by an outpatient physician they are welcome, and in fact should, return to the Emergency Department for a repeat evaluation. The patient is stable at time of discharge. Laboratory Tests Test 06/27/20 10:43 POC Whole Blood Glucose 114 MG/DL (74-106) H EKG Diagnostic Results Troponin ordered: No - Ordered for seizure EKG Time: 10:38 EP Interpretation: Xochitl Mahan MD Rate: normal - 88 bpm Rhythm: NSR ST Segments: no acute changes ASA given to the pt in ED: No Rhythm Strip Diag. Results Rhythm Strip Time: 10:55 EP Interpretation: yes - Xochitl Mahan MD Rate: 83 bpm Rhythm: NSR, no PVC's, no ectopy Chest X-Ray Diagnostic Results Chest X-Ray Diagnostic Results : Chest X-Ray Ordered: Yes # of Views/Limited/Complete: 1 View Indication: Other - Mental status EP Interpretation: Yes Interpretation: no consolidation, no effusion, no pneumothorax, other - Bronchial thickening Impression: Other - Bronchial thickening Electronically Signed by: Xochitl Mahan MD Last Vital Signs Date Time Temp Pulse Resp B/P (MAP) Pulse Ox O2 Delivery O2 Flow Rate FiO2 06/27/20 10:12 98.2 128 20 140/72 (94) 99 Room Air Disposition: HOME, SELF-CARE Condition: Stable Scripts Levetiracetam (KEPPRA) 750 Mg Tablet 750 MG ORAL BID for 30 Days, TAB Prov: Xochitl Mahan M.D. 06/27/20 Additional Instructions: The patient was provided with discharge instructions, notified to follow-up with a primary care doctor and or specialist in the next 24-48 hours, and to return to the ED if they have worsening of their symptoms. Please note that this report is being documented using [employer] technology. This can lead to erroneous entry secondary to incorrect interpretation by the dictating instrument. Xochitl Mahan M.D. Jun 27, 2020 10:27
[2020-06-27] MEDS ORDERED: levETIRAcetam 1,000mg/NS100ml 100 ML IVPB ONE (10:45)
[2020-06-27 10:49] VITALS: BP 125/65
--- NOTE | 2020-06-27 11:08 | Diagnostic Imaging Report ---
FILM CXR 1 VIEW INDICATION: Altered mental status COMPARISON: None FINDINGS: Single frontal view demonstrates a normal cardiomediastinal silhouette. Radiopaque structures in the left thoracic soft tissues with mild interstitial prominence and bronchial thickening. No focal consolidation. No pleural effusions. The visualized osseous structures are within normal limits. IMPRESSION: Radiopaque foreign bodies overlying the left thorax. Bronchitis noted without focal infiltrate
[2020-06-27] MEDS ORDERED: KEPPRA750 MG ORAL (11:27)
[2020-06-27 11:30] VITALS: BP 130/88
[2020-06-27 11:33] LABS: APPEARANCE,URINE CLEAR; BILIRUBIN, URINE NEGATIVE (NEGATIVE); COLOR,URINE PALE YELLOW; GLUCOSE, URINE (UA) NEGATIVE (NEGATIVE); KETONES,URINE 1+ (NEGATIVE); LEUKOCYTE ESTERASE ,URINE NEGATIVE (NEGATIVE); NITRITE,URINE NEGATIVE (NEGATIVE); PH,URINE 5 (4.5-8.0); PROTEIN,URINE 3+ (NEGATIVE); UROBILINOGEN,URINE NORMAL MG/DL (0.0-1.0)
--- NOTE | 2020-06-27 11:54 | NUR ---
1030: pt biba for seizure activity. pt noncompliant with medications. pt intermittently calm & agitated. leather restraints placed per md order. pt fighting staff on arrival. pt responds to pain. VSS. monitoring pt every 15 min, RN 1 to 1 with pt to maintain safety. pt intermittently agitated, fighting staff, verbally aggressive, fighting restraints, attempting to grab staff, attempting to rip out lines, unable to follow directions, then pt calm and resting in bed. pt unable to be reoriented. pt unable to remain calm for length of time to take off restraints. pt cap refill <3 sec, sensation & skin intact. MD updated. 1130: restraints removed. pt calm & cooperative. pt verablizes understanding of need to verbalize with staff his needs, to remian calm & non-combative. pt A&Ox4. VSS
--- NOTE | 2020-06-27 12:03 | NUR ---
unable to obtain blood sample. pt aggressive. notified. accucheck completed, iv initiated, pt medicated per emar, ekg performed, urine sent to lab.
--- NOTE | 2020-06-27 14:30 | NUR ---
pt resting in bed. calm & cooperative. pt A&Ox4, ambulatory, stable. pt awake and ready for discharge. cleared by md for discharge. no seizure activity noted while in ER. pt verbalizes understanding of discharge instructions and followup care.
[2020-06-27 14:56] VITALS: BP 128/76
== END 2020-06-27 14:30 | disposition home or self-care (01) ==
LOC: EDBD 10:35 → EMR 10:37
DX: G40.909 Epilepsy, unspecified, not intractable, without status epilepticus (principal); Z91.14 Patient's other noncompliance with medication regimen; R00.0 Tachycardia, unspecified
CPT/HCPCS: 71045; 80307; 81003; 82962; 93005; 96361; 96374; J1953; J7030; Z7502; 99284

== ENCOUNTER 2020-07-01 06:39 | Emergency (ER) | payer OTHER ==
[~2020-07-01] VITALS: Ht 182.9 cm; Wt 83.9 kg
[2020-07-01 06:55] VITALS: BP 129/85
--- NOTE | 2020-07-01 06:56 | NUR ---
Pte came to ER via EMS c/o seizure episode 1 hour ago , pte received alert and oriented, pte refer he is not taken his seizure meds. Will continue to monitor.
[2020-07-01] MEDS ORDERED: levETIRAcetam 1,000mg/NS100ml 100 ML IVPB ONE (07:00)
[2020-07-01] MEDS ORDERED: KEPPRA500 M4 ORAL (07:02)
[2020-07-01 07:04] VITALS: BP 129/85
--- NOTE | 2020-07-01 07:06 | NUR ---
ER DISCHARGE NOTE: Patient is cleared to be discharged per ERMD, pt is aox4, on room air, with stable vital signs. pt was given dc and prescription instructions, pt was able to verbalize understanding, pt id band removed without complications. pt is able to ambulate with steady gait. pt took all belongings.
--- NOTE | 2020-07-01 07:10 | Emergency Room Report ---
History of Present Illness General Chief Complaint: Seizure Present Illness HPI Disclaimer: Please note that this report is being documented using [employer] technology. This can lead to erroneous entry secondary to incorrect interpretation by the dictating instrument. HPI: 35-year-old male history of seizures with a history of medication noncompliance presents from the street by EMS for recurrent seizure. He states his last seizure was about 5 days ago. He was seen at another hospital. He states he was not provided at a prescription or did not fill it. Patient denies any headache nausea vomiting chest pain or shortness of breath to me. He states he takes Keppra but again is noncompliant. 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 Nursing Documentation-PMH Hx Cardiac Problems: No - seizure Hx Hypertension: Yes Hx Diabetes: Yes Hx Cancer: No Hx Gastrointestinal Problems: No Hx Neurological Problems: Yes Hx Seizures: Yes Review of Systems All Other Systems: negative except mentioned in HPI Physical Exam Vital Signs Date Time Temp Pulse Resp B/P (MAP) Pulse Ox O2 Delivery O2 Flow Rate FiO2 07/01/20 06:46 97.5 84 18 127/71 (89) 97 Room Air 07/01/20 06:54 98 Sp02 EP Interpretation: reviewed, normal General Appearance: well appearing, no apparent distress Head: normocephalic, atraumatic Eyes: bilateral eye PERRL, bilateral eye EOMI ENT: hearing grossly normal, moist mucus membranes Neck: full range of motion, supple Respiratory: lungs clear, normal breath sounds, no rhonchi, no respiratory distress, no retraction, no wheezing Cardiovascular #1: normal peripheral pulses, regular rate, rhythm, no murmur Gastrointestinal: non tender, soft, non-distended, no guarding Neurologic: alert, motor strength/tone normal, ply splicer III-XII nml as tested, oriented x3, cerebellar normal, normal gait, no focal defects Skin: normal color, warm/dry Medical Decision Making Diagnostic Impression: Primary Impression: Recurrent seizures Additional Impression: Noncompliance with medication regimen ER Course Patient presented after recurrent seizure. Differential included but not limited to breakthrough seizure medication noncompliance less likely infectious process or other serious etiology. Patient admits to medication noncompliance. I did initially order IV Keppra x1 however he refused IV. And he requested to be discharged. He was given oral Keppra in the ER. Will be discharged with Keppra twice daily 500 mg and follow-up with his PMD. Return precautions were given. Patient did not wish to stay for any continued observation. At time of discharge he was alert oriented x3 neurologically intact and ambulatory with a steady gait. Last Vital Signs Date Time Temp Pulse Resp B/P (MAP) Pulse Ox O2 Delivery O2 Flow Rate FiO2 07/01/20 06:55 98.2 74 18 129/85 97 Room Air 07/01/20 06:54 98 Disposition: HOME, SELF-CARE Condition: Stable Scripts Levetiracetam (KEPPRA) 500 Mg Tablet 500 MG ORAL EVERY 12 HOURS, #60 TAB 0 Refills Prov: Juan Heard M.D. 07/01/20 Patient Instructions: Seizure, Adult Additional Instructions: Please take your medication as prescribed. Patient is instructed to follow-up with her primary care doctor, primary care clinic or [facility] in 1 to 2 days. Patient instructed to return for any worsening symptoms or concerns. Juan Heard M.D. Jul 01, 2020 07:10
[2020-07-01] MEDS ORDERED: LORazepam Inj 2mg/ml 1ml ONE ×2 (12:15→12:28)
[2020-07-01] MEDS ORDERED: Haloperidol 5mg/ml Inj ONE (12:35)
[2020-07-01] MEDS ORDERED: DiphenhydrAMINE 50mg/ml Inj ONE (12:35)
== END 2020-07-01 07:37 | disposition home or self-care (01) ==
LOC: EDUNIT# 06:39 → EDBD 06:39 → EMR 07:00
DX: G40.909 Epilepsy, unspecified, not intractable, without status epilepticus (principal); I10 Essential (primary) hypertension; E11.9 Type 2 diabetes mellitus without complications; Z91.14 Patient's other noncompliance with medication regimen; Z79.899 Other long term (current) drug therapy
CPT/HCPCS: 96374; J1200; J1630; J1953; Z7502; 99284

== ENCOUNTER 2020-07-01 12:18 | Emergency (ER) | payer OTHER ==
[~2020-07-01] VITALS: Ht 182.9 cm; Wt 81.6 kg
[2020-07-01 12:17] VITALS: BP 130/80
[2020-07-01] MEDS ORDERED: levETIRAcetam 1,000mg/NS100ml 100 ML IVPB ONE (12:30)
[2020-07-01] MEDS ORDERED: LORazepam Inj 2mg/ml 1ml IV ONE ×2 (12:30)
[2020-07-01] MEDS: Haloperidol 5mg/ml Inj IM PRN ×2 (12:39→16:27)
[2020-07-01] MEDS ORDERED: DiphenhydrAMINE 50mg/ml Inj IM ONE (12:45)
--- NOTE | 2020-07-01 13:03 | Emergency Room Report ---
History of Present Illness General Chief Complaint: Seizure Source: Patient (Juan Heard M.D.) Present Illness HPI Disclaimer: Please note that this report is being documented using [employer] technology. This can lead to erroneous entry secondary to incorrect interpretati on by the dictating instrument. HPI: 35-year-old male history of seizure disorder and medication noncompliance presents for recurrent seizure. Patient seen by me this morning. This morning I did order him IV medication however he refused IV medication and wished to be discharged. Patient did go home and had an additional seizure and return to the ER. On arrival he is combative, uncooperative, and postictal. He arrived by EMS with police. Again he was uncooperative and required restraints and medication. PMH: Seizure disorder (Juan Heard M.D.) Allergies: Coded Allergies: No Known Allergies (Unverified , 08/05/14) COVID-19 Screening Contact w/high risk pt: No Recent Travel to affected area: No Experienced COVID-19 symptoms?: No COVID-19 Testing performed BAREBACK RIDER: No (Juan Heard M.D.) Patient History Reviewed Nursing Documentation: PMH: Agreed; PSxH: Agreed (Juan Heard M.D.) Nursing Documentation-PMH Hx Cardiac Problems: No - seizure Hx Hypertension: Yes Hx Diabetes: Yes Hx Cancer: No Hx Gastrointestinal Problems: No Hx Neurological Problems: Yes Hx Seizures: Yes (Juan Heard M.D.) Review of Systems All Other Systems: limited - Secondary to altered mental status (Juan Heard M.D.) Physical Exam Vital Signs Date Time Temp Pulse Resp B/P (MAP) Pulse Ox O2 Delivery O2 Flow Rate FiO2 07/01/20 12:17 97.9 82 18 130/80 (97) 98 Room Air Sp02 EP Interpretation: reviewed, normal General Appearance: well appearing, Postictal Head: normocephalic, atraumatic Eyes: bilateral eye PERRL, bilateral eye EOMI ENT: hearing grossly normal, moist mucus membranes Neck: full range of motion, supple Respiratory: lungs clear, normal breath sounds, no rhonchi, no respiratory distress, no retraction, no wheezing Cardiovascular #1: normal peripheral pulses, regular rate, rhythm, no murmur Gastrointestinal: non tender, soft, non-distended, no guarding Musculoskeletal: inflammation Neurologic: other - Patient postictal. Does move all extremities equally. Yelling, combative Skin: normal color, warm/dry (Juan Heard M.D.) Medical Decision Making Diagnostic Impression: Primary Impression: Recurrent seizures Additional Impression: Noncompliance with medication regimen ER Course MDM: Patient presents with recurrent seizures. Seen this morning for the same. Again this morning he refused IV medication. He was given p.o. medication prior to discharge however did have recurrent seizure at home. At this time patient was given Ativan for seizure in the ER. An IV was placed, IV Keppra given. Laboratory studies were sent CT scan of the brain ordered and patient will be arranged for admission the hospital due to his recurrent seizure activity today. Unfortunately patient was very uncooperative today. Again did require restraints. Remove multiple IVs. Spoke with family and his sister, Silvana, who did come to the ER. Likely she was able to calm the patient. We were able to place an IV and give IV Keppra. I do believe patient does require admission due to his multiple recurrent seizure activity today. Plan is to admit to telemetry floor. Clinical course- Labs - (Juan Heard M.D.) ER Course This patient was about to be transferred to his inpatient bed in the hospital an d he then declined admission and further treatment. I discussed with him the dangers of recurrent seizure and uncontrolled seizures and noncompliance with his Keppra. I educated him that if he were to have a seizure in a dangerous situation such as crossing the road as he is not currently controlled he could potentially . The patient was adamant and adamantly refused any further treatment in the emergency department and admission to the hospital. The patient has been at 3 different hospitals in the past 48 h. He has a prescription for his Keppra that he was given this morning at his 1st visit today. The patient is well-known has noncompliant with his medications and also is polysubstance dependent and abusive. The polydrug abuse is likely contribut ing to his ongoing poorly controlled seizures. Regardless even after extensive discussion the patient did not want to speak with me any longer and demanded to leave. Patient left AGAINST MEDICAL ADVICE. (Kelly Rodriguez DO) Last Vital Signs Date Time Temp Pulse Resp B/P (MAP) Pulse Ox O2 Delivery O2 Flow Rate FiO2 07/01/20 12:17 97.9 82 18 130/80 (97) 98 Room Air (Juan Heard M.D.) Disposition: AGAINST MEDICAL ADVICE Condition: Stable Referrals: [facility]ERR[facility] (PCP) Juan Heard M.D. Jul 01, 2020 13:02 Kelly Rodriguez DO Jul 01, 2020 19:37
--- NOTE | 2020-07-01 16:22 | Diagnostic Imaging Report ---
Indications: History of seizure disorder with recurrent seizures Technique: Spiral acquisitions obtained through the brain. Angled axial and coronal 5 x 5 mm slices were reconstructed. Total dose length product 1029 mGycm. CTDI vol(s) 53 mGy. Dose reduction achieved using automated exposure control Comparison: None. Findings: No acute intracranial hemorrhage or edema, mass effect, or midline shift. Normal price-white differentiation. Intact calvarium. Visualized orbits and sinuses are unremarkable. Mastoids are clear. Impression: Negative The CT scanner at [facility] is accredited by the [employer] and the scans are performed using protocols designed to limit radiation exposure to as low as reasonably achievable to attain images of sufficient resolution adequate for diagnostic evaluation.
--- NOTE | 2020-07-01 19:00 | NUR ---
report received from FREEDOM HERNÁNDEZ. PT ON THE CART. EASILY AROUSABLE. V/S STABLE. PT IN NO DISTRESS. WILL CONTINUE TO MONITOPR PT
--- NOTE | 2020-07-01 19:25 | NUR ---
report given to phillip jackson
--- NOTE | 2020-07-01 19:30 | NUR ---
UPON PREPARATION FOR TRANSPORT. PT STATES HE DOESNT WANT TO GET ADMITTED. STATES HE WOULD LIKE TO LEAVE AMA. PT AOX3. UNDERSTANDS CONSEQUENCES OF LEAVING AGAINST MEDICAL ADVICE. AWARE.
--- NOTE | 2020-07-01 19:48 | NUR ---
Refusing to be admitted,calling the nurse "negger", , Get the "F"out, ect.
== END 2020-07-01 20:03 | disposition left against medical advice (07) ==
LOC: EDBD 12:18 → EMR 12:39 → UNDOADMIN 17:30 → 2E 17:30 → EDBEDREQ 18:22 → EMR 20:03
DX: G40.909 Epilepsy, unspecified, not intractable, without status epilepticus (principal); Z91.14 Patient's other noncompliance with medication regimen; I10 Essential (primary) hypertension; E11.9 Type 2 diabetes mellitus without complications; Z53.29 Procedure and treatment not carried out because of patient's decision for other reasons
CPT/HCPCS: 70450; 93005; 96372; 96374; 96375; J1953; Z7502; 99284